=== PATIENT | female | born 1965 | race Caucasian/White ===

== ENCOUNTER → 2016-06-15 | Outpatient (REF) | payer BC ==
[2016-06-15 16:08] LABS: BASO % 0.4 % (0.0-1.0); EOS # 0.1 K/mm3 (0.0-0.50); EOS % 1.4 % (0.0-3.0); LARGE UNSTAINED CELL # 0.2 K/mm3 (0.0-0.4); LARGE UNSTAINED CELL % 2.5 % (0.0-4.0); LYMPH # 1.9 K/mm3 (1.5-4.5); LYMPH % 20.4 % (24.0-44.0); MEAN CORPUSCULAR HEMOGLOBIN 28.3 pg (27.0-33.0); MEAN CORPUSCULAR HGB CONC 32.6 g/dl (32.0-36.5); MEAN CORPUSCULAR VOLUME 86.9 fl (80.0-96.0); MONO # 0.9 K/mm3 (0.0-0.8); MONO % 9.4 % (0.0-5.0); PLATELET COUNT, AUTOMATED 246 k/mm3 (150-450); RED CELL DISTRIBUTION WIDTH 14.1 % (11.5-14.5); WHITE BLOOD COUNT 9.1 K/mm3 (4.0-10.0)
[2016-06-15 16:11] LABS: BLOOD UREA NITROGEN 16 MG/DL (7-18); CREATININE FOR GFR 1.02 MG/DL (0.55-1.02); GLUCOSE, FASTING 104 MG/DL (70-105)
[2016-06-15 16:12] LABS: ALBUMIN 3.7 GM/DL (3.2-5.2); ALBUMIN/GLOBULIN RATIO 1.06 (1.00-1.93); ALKALINE PHOSPHATASE 98 U/L (45-117); ALT/SGPT 29 U/L (12-78); ANION GAP 9 MEQ/L (8-16); AST/SGOT 15 U/L (15-37); BILIRUBIN,TOTAL 0.4 MG/DL (0.2-1.0); CALCIUM LEVEL 8.6 MG/DL (8.5-10.1); CARBON DIOXIDE LEVEL 28 MEQ/L (21-32); CHLORIDE LEVEL 103 MEQ/L (98-107); CHOLESTEROL LEVEL 141 MG/DL (<200); GLOMERULAR FILTRATION RATE > 60.0 (>58); POTASSIUM SERUM 3.9 MEQ/L (3.5-5.1); SODIUM LEVEL 140 MEQ/L (136-145); TOTAL PROTEIN 7.2 GM/DL (6.4-8.2); TRIGLYCERIDES LEVEL 92 MG/DL (<150)
== END ==
LOC: M SFHCPLAZ 13:12
PROVIDERS: ATTEND Family Medicine
DX: I10 Essential (primary) hypertension (principal); E78.5 Hyperlipidemia, unspecified; R73.01 Impaired fasting glucose

== ENCOUNTER 2016-08-08 18:05 | Emergency (ER) | payer BC ==
[~2016-08-08] VITALS: Ht 157.5 cm; Wt 166.0 kg
[2016-08-08] MEDS ORDERED: SPIR50TA2 PO (18:30)
[2016-08-08] MEDS ORDERED: VITA50003 PO (18:30)
[2016-08-08] MEDS ORDERED: ATEN50TA2 PO (18:30)
[2016-08-08] MEDS ORDERED: ASPIRIN 81 MG CHEW TABLET PO ONE (19:15)
[2016-08-08] MEDS ORDERED: methylPREDNISolone INJ 125 MG/2 ML VIAL (J2930) IV ONE (19:15)
[2016-08-08 19:28] LABS: BASO % 0.3 % (0.0-1.0); EOS # 0.1 K/mm3 (0.0-0.50); EOS % 0.6 % (0.0-3.0); LARGE UNSTAINED CELL # 0.2 K/mm3 (0.0-0.4); LYMPH # 3.5 K/mm3 (1.5-4.5); LYMPH % 20.4 % (24.0-44.0); MEAN CORPUSCULAR HGB CONC 30.8 g/dl (32.0-36.5); MEAN CORPUSCULAR VOLUME 90.9 fl (80.0-96.0); MONO # 0.7 K/mm3 (0.0-0.8); MONO % 3.9 % (0.0-5.0); NEUTROPHILS # 12.2 K/mm3 (1.8-7.7); NEUTROPHILS % 73.8 % (36.0-66.0); PLATELET COUNT, AUTOMATED 349 k/mm3 (150-450); RED CELL DISTRIBUTION WIDTH 14.7 % (11.5-14.5); WHITE BLOOD COUNT 16.5 K/mm3 (4.0-10.0)
[2016-08-08 19:34] LABS: INR 1.04
[2016-08-08] MEDS: IPRATROPIUM 0.5MG/ALBUTEROL 2.5MG INH SOL UD 3ML (DUONEB)(J7620) NEB PRN ×2 (19:34→20:13)
[2016-08-08 19:36] LABS: ALBUMIN 3.7 GM/DL (3.2-5.2); BILIRUBIN,DIRECT 0.3 MG/DL (0.0-0.2); BILIRUBIN,TOTAL 0.7 MG/DL (0.2-1.0); CALCIUM LEVEL 8.6 MG/DL (8.5-10.1); CREATININE FOR GFR 1.43 MG/DL (0.55-1.02); GLOMERULAR FILTRATION RATE 41.5 (>58); TOTAL PROTEIN 7.4 GM/DL (6.4-8.2)
--- NOTE | 2016-08-08 19:54 | REP ---
Chest one-view HISTORY: Cough Comparison: None The lungs are clear. The heart is normal in size. The pulmonary vasculature is normal in appearance. Impression: No acute disease. Signed by Rc Schneider MD 08/08/2016 07:46 P
[2016-08-08] MEDS ORDERED: HEPARIN SOD (PORCINE) 5000 UNITS/ML VIAL IV STA (20:43)
[2016-08-08] MEDS ORDERED: HEPARIN SOD (PORCINE) 5000 UNITS/ML VIAL IV SCH (20:45)
[2016-08-08] MEDS ORDERED: LORazepam 2 MG/ML VIAL (J2060) IV STA (20:52)
[2016-08-08] MEDS ORDERED: HEPARIN 25,000 UNITS/250 ML D5W BAG (100 UNITS/ML) As Ordered ONE (20:58)
[2016-08-08] MEDS ORDERED: HEPARIN DRIP 25,000 UNITS in APPROPRIATE DILUENT 1 EA IV STA (21:05)
[2016-08-08] MEDS ORDERED: HEPARIN SOD (PORCINE) 5000 UNITS/ML VIAL IV PRN (21:15)
[2016-08-08 21:40] LABS: MEAN CORPUSCULAR HEMOGLOBIN 27.8 pg (27.0-33.0); MEAN CORPUSCULAR HGB CONC 31.9 g/dl (32.0-36.5); MEAN CORPUSCULAR VOLUME 87.2 fl (80.0-96.0); RED CELL DISTRIBUTION WIDTH 14.5 % (11.5-14.5); WHITE BLOOD COUNT 14.2 K/mm3 (4.0-10.0)
[2016-08-08 21:48] LABS: INR 1.15
[2016-08-08 22:44] VITALS: BP 141/99
--- NOTE | 2016-08-09 20:22 | ECGEPIP ---
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
== END 2016-08-08 23:02 | disposition short-term general hospital (02) ==
LOC: M ED 19:18
DX: I21.4 Non-ST elevation (NSTEMI) myocardial infarction (principal); R00.0 Tachycardia, unspecified; I10 Essential (primary) hypertension; J45.909 Unspecified asthma, uncomplicated; Z91.011 Allergy to milk products; Z79.899 Other long term (current) drug therapy
CPT/HCPCS: 71010; 80048; 80076; 82550; 82553; 85025; 85027; 85379; 85610; 85730; 87040; 93005; 93041; 94640; 94760; 96374; 96375; 99285; J2060; J2930

== ENCOUNTER → 2016-10-08 | Outpatient (REF) | payer BC ==
[~2016-10-08] MED LIST: ATEN50TA2 PO; SPIR50TA2 PO; VITA50003 PO
[2016-10-08 12:11] LABS: BASO % 0.6 % (0.0-1.0); EOS # 0.2 K/mm3 (0.0-0.50); EOS % 2.6 % (0.0-3.0); LARGE UNSTAINED CELL # 0.2 K/mm3 (0.0-0.4); LARGE UNSTAINED CELL % 2.2 % (0.0-4.0); LYMPH # 2.7 K/mm3 (1.5-4.5); LYMPH % 31.2 % (24.0-44.0); MEAN CORPUSCULAR HEMOGLOBIN 27.1 pg (27.0-33.0); MEAN CORPUSCULAR HGB CONC 31.2 g/dl (32.0-36.5); MEAN CORPUSCULAR VOLUME 86.9 fl (80.0-96.0); MONO # 0.5 K/mm3 (0.0-0.8); MONO % 6.7 % (0.0-5.0); NEUTROPHILS # 4.6 K/mm3 (1.8-7.7); NEUTROPHILS % 56.8 % (36.0-66.0); PLATELET COUNT, AUTOMATED 268 k/mm3 (150-450); RED CELL DISTRIBUTION WIDTH 14.8 % (11.5-14.5); WHITE BLOOD COUNT 8.1 K/mm3 (4.0-10.0)
[2016-10-08 12:21] LABS: INR 2.67
[2016-10-08 12:33] LABS: VITAMIN B12 LEVEL 364 PG/ML (247-911)
[2016-10-08 12:39] LABS: ALBUMIN 3.2 GM/DL (3.2-5.2); ALBUMIN/GLOBULIN RATIO 0.94 (1.00-1.93); ALKALINE PHOSPHATASE 89 U/L (45-117); ALT/SGPT 25 U/L (12-78); ANION GAP 6 MEQ/L (8-16); AST/SGOT 14 U/L (15-37); BILIRUBIN,TOTAL 0.3 MG/DL (0.2-1.0); BLOOD UREA NITROGEN 20 MG/DL (7-18); CALCIUM LEVEL 8.5 MG/DL (8.5-10.1); CARBON DIOXIDE LEVEL 28 MEQ/L (21-32); CHLORIDE LEVEL 108 MEQ/L (98-107); CREATININE FOR GFR 0.92 MG/DL (0.55-1.02); FERRITIN 69 NG/ML (8-252); FREE T4 1.24 NG/DL (0.76-1.46); GLOMERULAR FILTRATION RATE > 60.0 (>58); GLUCOSE, FASTING 102 MG/DL (70-105); PERCENT SATURATION 15.8 % (13.2-37.4); POTASSIUM SERUM 4.4 MEQ/L (3.5-5.1); SODIUM LEVEL 142 MEQ/L (136-145); TOTAL IRON BINDING CAPACITY 278 UG/DL (250-450); TOTAL PROTEIN 6.6 GM/DL (6.4-8.2)
[2016-10-11 00:06] LABS: PROTEIN C ANTIGEN 50 % (60-150)
== END ==
LOC: M SFHCPLAZ 10:03
PROVIDERS: ATTEND Family Medicine
DX: N18.3 Chronic kidney disease, stage 3 (moderate) (principal); I12.9 Hypertensive chronic kidney disease with stage 1 through stage 4 chronic kidney disease, or unspecified chronic kidney disease; I26.92 Saddle embolus of pulmonary artery without acute cor pulmonale; R73.01 Impaired fasting glucose

== ENCOUNTER → 2017-01-25 | Outpatient (REF) | payer BC ==
[~2017-01-25] MED LIST changes: +VITA1CAP40 PO; -VITA50003 PO
[2017-01-25 12:13] LABS: INR 2.21
[2017-01-25 12:16] LABS: BASO % 0.7 % (0.0-1.0); EOS # 0.2 K/mm3 (0.0-0.50); EOS % 3.3 % (0.0-3.0); LARGE UNSTAINED CELL # 0.1 K/mm3 (0.0-0.4); LARGE UNSTAINED CELL % 1.3 % (0.0-4.0); LYMPH # 2.3 K/mm3 (1.5-4.5); LYMPH % 29.4 % (24.0-44.0); MEAN CORPUSCULAR HEMOGLOBIN 28.2 pg (27.0-33.0); MEAN CORPUSCULAR HGB CONC 32.3 g/dl (32.0-36.5); MEAN CORPUSCULAR VOLUME 87.2 fl (80.0-96.0); MONO # 0.5 K/mm3 (0.0-0.8); MONO % 6.5 % (0.0-5.0); NEUTROPHILS # 4.5 K/mm3 (1.8-7.7); NEUTROPHILS % 58.7 % (36.0-66.0); PLATELET COUNT, AUTOMATED 285 k/mm3 (150-450); RED CELL DISTRIBUTION WIDTH 14.7 % (11.5-14.5); WHITE BLOOD COUNT 7.6 K/mm3 (4.0-10.0)
[2017-01-25 12:19] LABS: THYROID PEROXIDASE ANTIBODY < 28.0 U/ML (<60.0)
[2017-01-25 12:20] LABS: VITAMIN B12 LEVEL 445 PG/ML (247-911)
[2017-01-25 12:35] LABS: ALBUMIN 3.4 GM/DL (3.2-5.2); ALBUMIN/GLOBULIN RATIO 0.94 (1.00-1.93); ALKALINE PHOSPHATASE 107 U/L (45-117); ALT/SGPT 25 U/L (12-78); ANION GAP 9 MEQ/L (8-16); AST/SGOT 11 U/L (15-37); BILIRUBIN,TOTAL 0.3 MG/DL (0.2-1.0); BLOOD UREA NITROGEN 22 MG/DL (7-18); CALCIUM LEVEL 8.7 MG/DL (8.5-10.1); CARBON DIOXIDE LEVEL 27 MEQ/L (21-32); CHLORIDE LEVEL 107 MEQ/L (98-107); CREATININE FOR GFR 0.95 MG/DL (0.55-1.02); FERRITIN 31 NG/ML (8-252); FREE T4 1.24 NG/DL (0.76-1.46); GLOMERULAR FILTRATION RATE > 60.0 (>58); GLUCOSE, FASTING 100 MG/DL (70-105); MAGNESIUM LEVEL 2.3 MG/DL (1.8-2.4); PERCENT SATURATION 17.2 % (13.2-45.0); POTASSIUM SERUM 4.3 MEQ/L (3.5-5.1); SODIUM LEVEL 143 MEQ/L (136-145); TOTAL IRON BINDING CAPACITY 309 UG/DL (250-450)
== END ==
LOC: M SFHCPLAZ 08:34
PROVIDERS: ATTEND Family Medicine
DX: D50.9 Iron deficiency anemia, unspecified (principal); N18.3 Chronic kidney disease, stage 3 (moderate); E78.5 Hyperlipidemia, unspecified; R73.01 Impaired fasting glucose

== ENCOUNTER → 2017-08-30 | Outpatient (REF) | payer BC ==
[2017-08-30 10:43] LABS: BASO # 0.1 10^3/uL (0.0-0.2); BASO % 0.5 % (0.0-1.0); EOS # 0.2 10^3/uL (0.0-0.50); EOS % 2.5 % (0.0-3.0); HEMOGLOBIN 13.8 g/dl (12.0-15.5); IMMATURE GRANULOCYTE % 0.4 % (0-3.0); LYMPH # 2.8 10^3/uL (1.5-4.5); MEAN CORPUSCULAR HEMOGLOBIN 28.5 pg (27.0-33.0); MEAN CORPUSCULAR HGB CONC 31.4 g/dl (32.0-36.5); MEAN CORPUSCULAR VOLUME 90.9 fl (80.0-96.0); MONO # 0.8 10^3/uL (0.0-0.8); NEUTROPHILS # 5.2 10^3/uL (1.8-7.7); NEUTROPHILS % 56.6 % (36.0-66.0); PLATELET COUNT, AUTOMATED 291 10^3/uL (150-450); RED BLOOD COUNT 4.84 10^6/uL (4.00-5.40); RED CELL DISTRIBUTION WIDTH 14.6 % (11.5-14.5); WHITE BLOOD COUNT 9.2 10^3/uL (4.0-10.0)
[2017-08-30 11:00] LABS: ESTIMATED AVERAGE GLUCOSE 140 MG/DL (60-110); HEMOGLOBIN A1c 6.5 %
[2017-08-30 11:30] LABS: ALBUMIN 3.7 GM/DL (3.2-5.2); ALBUMIN/GLOBULIN RATIO 1.06 (1.00-1.93); ALKALINE PHOSPHATASE 102 U/L (45-117); ALT/SGPT 22 U/L (12-78); ANION GAP 6 MEQ/L (8-16); AST/SGOT 11 U/L (7-37); BILIRUBIN,TOTAL 0.5 MG/DL (0.2-1.0); BLOOD UREA NITROGEN 18 MG/DL (7-18); CALCIUM LEVEL 8.6 MG/DL (8.5-10.1); CARBON DIOXIDE LEVEL 30 MEQ/L (21-32); CHLORIDE LEVEL 106 MEQ/L (98-107); CREATININE FOR GFR 1.11 MG/DL (0.55-1.30); FERRITIN 44 NG/ML (8-252); FREE T4 1.36 NG/DL (0.76-1.46); GLOMERULAR FILTRATION RATE 55.4 (>51); GLUCOSE, FASTING 118 MG/DL (70-100); IRON (FE) 57 UG/DL (50-170); POTASSIUM SERUM 4.5 MEQ/L (3.5-5.1); SODIUM LEVEL 142 MEQ/L (136-145); TOTAL IRON BINDING CAPACITY 300 UG/DL (250-450); TOTAL PROTEIN 7.2 GM/DL (6.4-8.2)
[2017-08-30 11:45] LABS: TOTAL 25(OH) VITAMIN D 40.2 NG/ML (30.0-100.0)
[2017-08-30 11:48] LABS: PTH INTACT 109.9 PG/ML (18.5-88.0)
[2017-08-31 14:19] LABS: INSULIN LEVEL 25.1 uIU/mL (2.6-24.9)
== END ==
LOC: M SFHCPLAZ 07:38
DX: N18.3 Chronic kidney disease, stage 3 (moderate) (principal); E55.9 Vitamin D deficiency, unspecified; E28.8 Other ovarian dysfunction
CPT/HCPCS: 83525

== ENCOUNTER → 2017-12-27 | Outpatient (REF) | payer BC ==
[2017-12-27 12:41] LABS: BASO % 0.4 % (0.0-1.0); EOS # 0.2 10^3/uL (0.0-0.50); EOS % 2.6 % (0.0-3.0); HEMATOCRIT 44.6 % (36.0-47.0); HEMOGLOBIN 13.9 g/dl (12.0-15.5); IMMATURE GRANULOCYTE % 0.7 % (0-3.0); LYMPH # 2.5 10^3/uL (1.5-4.5); LYMPH % 30.4 % (24.0-44.0); MEAN CORPUSCULAR HEMOGLOBIN 27.9 pg (27.0-33.0); MEAN CORPUSCULAR HGB CONC 31.2 g/dl (32.0-36.5); MEAN CORPUSCULAR VOLUME 89.4 fl (80.0-96.0); MONO # 0.7 10^3/uL (0.0-0.8); MONO % 8.3 % (0.0-5.0); NEUTROPHILS # 4.7 10^3/uL (1.8-7.7); NEUTROPHILS % 57.6 % (36.0-66.0); PLATELET COUNT, AUTOMATED 309 10^3/uL (150-450); RED BLOOD COUNT 4.99 10^6/uL (4.00-5.40); RED CELL DISTRIBUTION WIDTH 14.9 % (11.5-14.5); RETIC HEMOGLOBIN EQUIVALENT 30.9 pg (24-36); RETICULOCYTE # 81.8 10^9/L (17-77); RETICULOCYTE % 1.6 % (0.5-1.5); WHITE BLOOD COUNT 8.2 10^3/uL (4.0-10.0)
[2017-12-27 12:54] LABS: C REACTIVE PROTEIN QUANTITATIV 1.13 MG/DL (0.00-0.30); CHOLESTEROL LEVEL 181 MG/DL (<200); CHOLESTEROL RISK RATIO 3.851 (<5); CPK CREATINE PHOSPHOKINASE 46 U/L (26-192); FREE T4 1.33 NG/DL (0.76-1.46); HDL CHOLESTEROL 47 MG/DL (>40); LDL CHOLESTEROL 102.2 MG/DL (<100); NON-HDL-C 134 MG/DL; TRIGLYCERIDES LEVEL 159 MG/DL (<150)
[2017-12-27 13:17] LABS: ESTIMATED AVERAGE GLUCOSE 146 MG/DL (60-110); HEMOGLOBIN A1c 6.7 %
== END ==
LOC: M SFHCPLAZ 08:51
DX: D50.9 Iron deficiency anemia, unspecified (principal); E78.5 Hyperlipidemia, unspecified; Z51.81 Encounter for therapeutic drug level monitoring; E03.9 Hypothyroidism, unspecified; E11.9 Type 2 diabetes mellitus without complications
CPT/HCPCS: 82550

== ENCOUNTER → 2018-05-16 | Outpatient (REF) | payer BC ==
[2018-05-16 12:11] LABS: BASO # 0.1 10^3/uL (0.0-0.2); BASO % 0.7 % (0.0-1.0); EOS # 0.2 10^3/uL (0.0-0.50); EOS % 2.7 % (0.0-3.0); HEMOGLOBIN 13.6 g/dl (12.0-15.5); IMMATURE GRANULOCYTE % 0.5 % (0-3.0); LYMPH # 2.6 10^3/uL (1.5-4.5); MEAN CORPUSCULAR HEMOGLOBIN 27.7 pg (27.0-33.0); MEAN CORPUSCULAR HGB CONC 30.9 g/dl (32.0-36.5); MEAN CORPUSCULAR VOLUME 89.6 fl (80.0-96.0); MONO # 0.9 10^3/uL (0.0-0.8); MONO % 10.6 % (0.0-5.0); NEUTROPHILS # 4.4 10^3/uL (1.8-7.7); NEUTROPHILS % 53.5 % (36.0-66.0); PLATELET COUNT, AUTOMATED 302 10^3/uL (150-450); RED BLOOD COUNT 4.91 10^6/uL (4.00-5.40); RED CELL DISTRIBUTION WIDTH 15.4 % (11.5-14.5); RETIC HEMOGLOBIN EQUIVALENT 30.4 pg (24-36); RETICULOCYTE # 93.3 10^9/L (17-77); RETICULOCYTE % 1.9 % (0.5-1.5); WHITE BLOOD COUNT 8.2 10^3/uL (4.0-10.0)
[2018-05-16 12:16] LABS: AMORPHOUS SEDIMENT SMALL (NEGATIVE); APPEARANCE, URINE TURBID (CLEAR); BACTERIA, URINE AUTO 3+ (NEGATIVE); BILIRUBIN, URINE AUTO NEGATIVE (NEGATIVE); BLOOD, URINE BLOOD 2+ (NEGATIVE); COLOR, URINE AMBER (YELLOW); GLUCOSE, URINE (UA) AUTO NEGATIVE (NEGATIVE); KETONE, URINE AUTO NEGATIVE (NEGATIVE); LEUKOCYTE ESTERASE, URINE AUTO 1+ (NEGATIVE); MUCUS, URINE SMALL (NEGATIVE); NITRITE, URINE AUTO NEGATIVE (NEGATIVE); PROTEIN, URINE AUTO NEGATIVE (NEGATIVE); RBC, URINE AUTO 28 /HPF (0-3); SPECIFIC GRAVITY URINE AUTO 1.019 (1.002-1.035); SQUAMOUS EPITHELIAL CELL UR AU 7 /HPF (0-6); UROBILINOGEN, URINE AUTO 0.2 mg/dL (0.0-2.0); WBC, URINE AUTO 68 /HPF (0-3)
[2018-05-16 12:55] LABS: ALBUMIN 3.6 GM/DL (3.2-5.2); ALBUMIN/GLOBULIN RATIO 1.03 (1.00-1.93); ALKALINE PHOSPHATASE 101 U/L (45-117); ALT/SGPT 25 U/L (12-78); ANION GAP 8 MEQ/L (8-16); AST/SGOT 14 U/L (7-37); BILIRUBIN,TOTAL 0.4 MG/DL (0.2-1.0); BLOOD UREA NITROGEN 15 MG/DL (7-18); CALCIUM LEVEL 8.8 MG/DL (8.5-10.1); CARBON DIOXIDE LEVEL 28 MEQ/L (21-32); CHLORIDE LEVEL 106 MEQ/L (98-107); CREATININE FOR GFR 0.91 MG/DL (0.55-1.30); GLOMERULAR FILTRATION RATE > 60.0 (>51); GLUCOSE, FASTING 92 MG/DL (70-100); MAGNESIUM LEVEL 2.4 MG/DL (1.8-2.4); POTASSIUM SERUM 4.3 MEQ/L (3.5-5.1); PTH INTACT 117.4 PG/ML (18.5-88.0); SODIUM LEVEL 142 MEQ/L (136-145); TOTAL 25(OH) VITAMIN D 40.4 NG/ML (30.0-100.0); TOTAL PROTEIN 7.1 GM/DL (6.4-8.2)
[2018-05-16 15:08] LABS: ESTIMATED AVERAGE GLUCOSE 140 MG/DL (60-110); HEMOGLOBIN A1c 6.5 %
[2018-05-16 15:22] LABS: MALB URINE SIEMENS < 5.0 MG/L; MAU/CREAT RATIO 3.4 MCG/MG (0.0-30.0)
== END ==
LOC: M SFHCPLAZ 09:06
DX: D50.9 Iron deficiency anemia, unspecified (principal); I10 Essential (primary) hypertension; E11.9 Type 2 diabetes mellitus without complications; E55.9 Vitamin D deficiency, unspecified
CPT/HCPCS: 83735

== ENCOUNTER → 2018-06-27 | Outpatient (CLI) | payer BC ==
[~2018-06-27] MED LIST changes: +ISOVUE-370 76% 100ML VIAL (Q9967) As Ordered ONE; -SPIR50TA2 PO; +SPIR50TA4 PO; -VITA1CAP40 PO; +VITA50005 PO
--- NOTE | 2018-06-27 15:05 | REP ---
CT PULMONARY ANGIOGRAM: With IV contrast. HISTORY: Shortness of breath. COMPARISON STUDIES: No comparison study. Contrast dose: 75 mL of Isovue [address] TECHNIQUE: Helical scanning is acquired and overlapping 1.5 mm and contiguous 3 mm axial images are reformatted. In addition, maximum intensity projection and multiplanar re-formation images are generated in sagittal and coronal imaging projections. CT PULMONARY ANGIOGRAPHIC FINDINGS: There is good opacification in the pulmonary arterial tree. There is no CT evidence of pulmonary embolism. The thoracic aorta shows no evidence of aneurysm or dissection. No infiltrate is seen in the lung jain. No pulmonary nodule or mass lesion is observed. No pleural or pericardial effusion is appreciated. No hilar or mediastinal mass or adenopathy is observed. There is evidence of fatty infiltration in the liver. Spleen is at the upper range of normal in size. There is a small stable left adrenal adenoma, 1.6 cm in diameter. This is unchanged from December 02, 2015 prior study. IMPRESSION: No CT evidence of pulmonary embolus. Borderline size spleen and small benign left adrenal adenoma unchanged from the 2016 prior study. Mild fatty infiltration of the liver. Otherwise negative. Electronically Signed by Sam Gaona MD 06/27/2018 04:43 P
== END ==
LOC: M RAD 13:34
PROVIDERS: ATTEND Physician Assistant Medical
DX: R06.02 Shortness of breath (principal); K76.0 Fatty (change of) liver, not elsewhere classified; D35.02 Benign neoplasm of left adrenal gland
CPT/HCPCS: 71275; Q9967

== ENCOUNTER → 2018-06-27 | Outpatient (REF) | payer BC ==
[~2018-06-27] MED LIST changes: -ISOVUE-370 76% 100ML VIAL (Q9967) As Ordered ONE
[2018-06-27 13:44] LABS: BILIRUBIN,TOTAL 0.5 MG/DL (0.2-1.0); CALCIUM LEVEL 9.4 MG/DL (8.5-10.1); CREATININE FOR GFR 1.09 MG/DL (0.55-1.30); GLOMERULAR FILTRATION RATE 56.3 (>51); POTASSIUM SERUM 4.7 MEQ/L (3.5-5.1); TOTAL PROTEIN 7.8 GM/DL (6.4-8.2)
== END ==
LOC: M SFHCPLAZ 12:25
PROVIDERS: ATTEND Physician Assistant Medical
DX: N18.3 Chronic kidney disease, stage 3 (moderate) (principal)

== ENCOUNTER → 2019-03-13 | Outpatient (REF) | payer BC ==
[2019-03-13 12:09] LABS: INR 3.33; PROTHROMBIN TIME 33.8 SECONDS (11.8-14.0)
[2019-03-13 12:10] LABS: PARTIAL THROMBOPLASTIN TIME 46.9 SECONDS (25.0-38.4)
== END ==
LOC: M SFHCPLAZ 10:09
PROVIDERS: ATTEND Nurse Practitioner Family
DX: Z51.81 Encounter for therapeutic drug level monitoring (principal)

== ENCOUNTER → 2019-04-10 | Outpatient (REF) | payer BC ==
[2019-04-10 12:44] LABS: BASO % 0.4 % (0.0-1.0); EOS # 0.2 10^3/uL (0.0-0.5); EOS % 1.8 % (0.0-3.0); HEMATOCRIT 44.7 % (36.0-47.0); HEMOGLOBIN 13.5 g/dl (12.0-15.5); LYMPH # 2.4 10^3/uL (1.5-5.0); MEAN CORPUSCULAR HEMOGLOBIN 28.5 pg (27.0-33.0); MEAN CORPUSCULAR HGB CONC 30.2 g/dl (32.0-36.5); MEAN CORPUSCULAR VOLUME 94.3 fl (80.0-96.0); MONO # 0.9 10^3/uL (0.0-0.8); MONO % 9.7 % (0.0-5.0); NEUTROPHILS # 5.5 10^3/uL (1.5-8.5); NEUTROPHILS % 60.7 % (36.0-66.0); PLATELET COUNT, AUTOMATED 271 10^3/uL (150-450); RED BLOOD COUNT 4.74 10^6/uL (4.00-5.40)
[2019-04-10 12:56] LABS: INR 2.31; PARTIAL THROMBOPLASTIN TIME 36.6 SECONDS (25.0-38.4); PROTHROMBIN TIME 25.2 SECONDS (11.8-14.0)
[2019-04-10 13:01] LABS: ALBUMIN 3.4 GM/DL (3.2-5.2); ALT/SGPT 21 U/L (12-78); BILIRUBIN,TOTAL 0.4 MG/DL (0.2-1.0); BLOOD UREA NITROGEN 20 MG/DL (7-18); CALCIUM LEVEL 8.9 MG/DL (8.5-10.1); CARBON DIOXIDE LEVEL 27 MEQ/L (21-32); CHLORIDE LEVEL 108 MEQ/L (98-107); CHOLESTEROL LEVEL 183 MG/DL (<200); CREATININE FOR GFR 0.93 MG/DL (0.55-1.30); FREE T4 1.11 NG/DL (0.76-1.46); GLOMERULAR FILTRATION RATE > 60.0 (>51); GLUCOSE, FASTING 110 MG/DL (70-100); HDL CHOLESTEROL 50 MG/DL (>40); LDL CHOLESTEROL 100 MG/DL (<100); MAGNESIUM LEVEL 2.1 MG/DL (1.8-2.4); NON-HDL-C 133 MG/DL; NT-PRO BNP 196 PG/ML (<125); SODIUM LEVEL 143 MEQ/L (136-145); TOTAL PROTEIN 6.9 GM/DL (6.4-8.2); TRIGLYCERIDES LEVEL 164 MG/DL (<150)
[2019-04-10 14:13] LABS: HEMOGLOBIN A1c 6.1 %
== END ==
LOC: M SFHCPLAZ 08:34
PROVIDERS: ATTEND Family Medicine
DX: I10 Essential (primary) hypertension (principal); D50.9 Iron deficiency anemia, unspecified; Z51.81 Encounter for therapeutic drug level monitoring; N18.3 Chronic kidney disease, stage 3 (moderate); E03.9 Hypothyroidism, unspecified; E11.9 Type 2 diabetes mellitus without complications

== ENCOUNTER → 2019-08-17 | Outpatient (CLI) | payer OTHER ==
--- NOTE | 2019-08-17 20:12 | REPPI ---
Clinical: Pain. Work injury. Technique: Internal rotation, external rotation, and Y view of the left shoulder. Findings: There is subtle chronic ovoid blunting of the humeral head with subchondral heterogeneity along with irregular appearance to the glenoid and supporting portion of the scapula. Spurring involving the acromioclavicular joint is also appreciated. Clinical correlation is recommended as these findings appear nonacute. Impression: 1. Presumed chronic changes involving the left shoulder as described above. 2. Subtle acute injury cannot be excluded and requires correlation. If the patient remains symptomatic consider CT or MRI for further investigation. Electronically Signed by Humza Garcia MD 08/17/2019 08:03 P
--- NOTE | 2019-08-17 20:14 | REPPI ---
Clinical: Left wrist pain. Work injury. Technique: AP, lateral, bilateral oblique views of the left wrist. Findings: No acute fracture or dislocation. Carpal bones appear intact and no significant degenerative changes are noted. There is subtle scalloping and joint space narrowing involving the articular surface of the radius with subchondral sclerosis as well as subtle cortical irregularity and spurring involving the ulnar styloid. Findings likely represent chronic changes possibly related to work/repetitive micro trauma. Impression: Suspected chronic changes involving the distal intra-articular aspects of the distal radius and ulna. No definite acute fracture dislocation. Electronically Signed by Humza Garcia MD 08/17/2019 08:05 P
== END ==
LOC: M PLAIMG 15:09
PROVIDERS: ATTEND Physician Assistant
DX: M25.532 Pain in left wrist (principal); M25.512 Pain in left shoulder

== ENCOUNTER → 2019-08-20 | Outpatient (CLI) | payer BC ==
--- NOTE | 2019-08-25 15:51 | SLEEPHOME ---
DATE OF PROCEDURE: 08/20/2019 ORDERED BY: Dr. Rivas Diagnostic home sleep testing was performed due to concern for the obstructive sleep apnea syndrome. For testing a nocturnal T3 respiratory monitoring device was used. Continuous record was made of pulse, oxygen saturation, airflow, chest and abdominal strain, and body position. 9 hours and 59 minutes of data were reviewed. There were 7 hours and 59 minutes marked as time in bed. During the interval marked time in bed, there were 79 respiratory events identified of 10 seconds in duration or greater for a respiratory event index of 9.9. The events were primarily obstructive; 5 mixed and central apneas were seen. Baseline pulse rate 59 beats per minute; pulse rate ranged 40-91. Baseline saturation 93%; saturations fell to 76%. Testing was performed in both the supine and nonsupine positions. IMPRESSION: Abnormal home sleep testing with repetitive respiratory events and oxygen desaturations to 76% with a respiratory event index of 9.9 is consistent with the obstructive sleep apnea syndrome. RECOMMENDATIONS: The patient should be encouraged to undergo formal sleep evaluation.
== END ==
LOC: M SLEEP HO 09:18
PROVIDERS: ATTEND Family Medicine
DX: G47.33 Obstructive sleep apnea (adult) (pediatric) (principal)

== ENCOUNTER → 2019-09-29 | Outpatient (CLI) | payer BC ==
--- NOTE | 2019-10-02 00:24 | SLEEPCENT ---
DATE OF PROCEDURE: 09/29/2019 ORDERED BY: Ganesh Dumont PA-C Nocturnal polysomnography was performed for the titration of pressure therapy in this patient with a clinical diagnosis of obstructive sleep apnea syndrome confirmed by home testing revealing a respiratory event index of 9.9. For testing a [employer] L[employer] View full face mask of medium size was used, 4 cm of water pressure were applied to the circuit and the lights were extinguished. 7 hours and 28 minutes of data were reviewed. There were 167 minutes of sleep identified. Sleep latency was quite prolonged at 106 minutes. Rapid eye movement (REM) latency was prolonged at 111 minutes. Sleep architecture was fair. There were two REM cycles noted with prolonged periods of wake that occurred resulting in reduced sleep efficiency of only 37.7%. The patient's electrocardiogram showed a sinus rhythm with an average heart rate of 72 beats per minute. EEG showed reasonably normal waveforms for awake and sleep. Respiratory events were fairly well palliated with continuous positive airway pressure (CPAP) at a pressure of +7. Remaining measures of sleep physiology were normal. IMPRESSION: Obstructive sleep apnea syndrome (G47.33). RECOMMENDATIONS: Nightly use of pressure therapy 7 cm of water.
== END ==
LOC: M SLEEP 20:00
PROVIDERS: ATTEND Physician Assistant
DX: G47.33 Obstructive sleep apnea (adult) (pediatric) (principal)

== ENCOUNTER → 2019-10-02 | Outpatient (REF) | payer BC ==
[2019-10-02 11:32] LABS: BASO # 0.1 10^3/uL (0.0-0.2); BASO % 0.7 % (0.0-1.0); EOS # 0.1 10^3/uL (0.0-0.5); EOS % 1.9 % (0.0-3.0); HEMATOCRIT 44.5 % (36.0-47.0); HEMOGLOBIN 13.8 g/dl (12.0-15.5); LYMPH # 2.7 10^3/uL (1.5-5.0); LYMPH % 36.2 % (24.0-44.0); MEAN CORPUSCULAR HEMOGLOBIN 28.6 pg (27.0-33.0); MEAN CORPUSCULAR VOLUME 92.1 fl (80.0-96.0); MONO # 0.6 10^3/uL (0.0-0.8); MONO % 8.1 % (0.0-5.0); NEUTROPHILS # 3.9 10^3/uL (1.5-8.5); NEUTROPHILS % 52.6 % (36.0-66.0); PLATELET COUNT, AUTOMATED 306 10^3/uL (150-450); RED BLOOD COUNT 4.83 10^6/uL (4.00-5.40); WHITE BLOOD COUNT 7.4 10^3/uL (4.0-10.0)
[2019-10-02 11:33] LABS: ALBUMIN 3.7 GM/DL (3.2-5.2); ALT/SGPT 28 U/L (12-78); BILIRUBIN,TOTAL 0.6 MG/DL (0.2-1.0); BLOOD UREA NITROGEN 15 MG/DL (7-18); CALCIUM LEVEL 9.2 MG/DL (8.5-10.1); CARBON DIOXIDE LEVEL 28 MEQ/L (21-32); CHLORIDE LEVEL 106 MEQ/L (98-107); CREATININE FOR GFR 1.08 MG/DL (0.55-1.30); GLOMERULAR FILTRATION RATE 56.7 (>51); GLUCOSE, FASTING 97 MG/DL (70-100); POTASSIUM SERUM 4.5 MEQ/L (3.5-5.1); SODIUM LEVEL 142 MEQ/L (136-145); TOTAL PROTEIN 7.4 GM/DL (6.4-8.2)
[2019-10-02 11:38] LABS: INR 2.17
[2019-10-02 11:39] LABS: PARTIAL THROMBOPLASTIN TIME 36.4 SECONDS (25.0-38.4)
[2019-10-02 11:41] LABS: TOTAL 25(OH) VITAMIN D 94.6 NG/ML (30.0-100.0)
[2019-10-02 11:42] LABS: VITAMIN B12 LEVEL 417 PG/ML (247-911)
[2019-10-06 11:11] LABS: ALBUMIN 4.04 GM/DL (3.29-5.55); ALBUMIN % 54.6 % (55.8-66.1); ALPHA-1-GLOBULIN % 4.7 % (2.9-4.9); ALPHA-2-GLOBULINS % 12.1 % (7.1-11.8); BETA-1-GLOBULINS % 6.6 % (4.7-7.2); BETA-2-GLOBULINS % 6.3 % (3.2-6.5); GAMMA GLOBULIN % 15.7 % (11.1-18.8)
[2019-10-06 11:12] LABS: ALPHA-1-GLOBULINS 0.35 GM/DL (0.17-0.41); BETA-1-GLOBULINS 0.49 GM/DL (0.28-0.60); BETA-2-GLOBULINS 0.47 GM/DL (0.19-0.55); GAMMA GLOBULINS 1.16 GM/DL (0.65-1.58)
== END ==
LOC: M PLALAB 09:35
PROVIDERS: ATTEND Family Medicine
DX: I10 Essential (primary) hypertension (principal); E55.9 Vitamin D deficiency, unspecified; Z51.81 Encounter for therapeutic drug level monitoring

== ENCOUNTER → 2020-02-05 | Outpatient (CLI) | payer BC, OTHER ==
[2020-02-05 14:24] LABS: HEMATOCRIT 45.7 % (36.0-47.0); HEMOGLOBIN 14.1 g/dl (12.0-15.5); MEAN CORPUSCULAR HEMOGLOBIN 27.8 pg (27.0-33.0); MEAN CORPUSCULAR HGB CONC 30.9 g/dl (32.0-36.5); MEAN CORPUSCULAR VOLUME 90.1 fl (80.0-96.0); PLATELET COUNT, AUTOMATED 363 10^3/uL (150-450); RED BLOOD COUNT 5.07 10^6/uL (4.00-5.40); WHITE BLOOD COUNT 8.8 10^3/uL (4.0-10.0)
[2020-02-05 14:46] LABS: INR 1.49; PROTHROMBIN TIME 18.4 SECONDS (11.8-14.0)
[2020-02-05 15:02] LABS: FREE T4 1.28 NG/DL (0.76-1.46); THYROID STIMULATING HORMONE 3.49 uIU/ML (0.358-3.740)
[2020-02-05 16:02] LABS: HEMOGLOBIN A1c 6.1 %
== END ==
LOC: M PLALAB 10:37
PROVIDERS: ATTEND Family Medicine
DX: I10 Essential (primary) hypertension (principal); E11.9 Type 2 diabetes mellitus without complications

== ENCOUNTER → 2020-06-22 | Outpatient (CLI) | payer OTHER ==
--- NOTE | 2020-06-22 09:34 | REP ---
INDICATION: LT SHOULDER ASSESS RC TENDONS SHOULDER PAIN STRAIN. COMPARISON: Radiographs 08/17/2019. TECHNIQUE: Coronal oblique T1, T2 fat sat, sagittal oblique T2 fat sat, axial T2 fat sat, gradient echo. The study is extremely limited due to patient body habitus. FINDINGS: Rotator cuff: Mild ill-defined high signal seen on T2 weighted images in the supraspinatus and infraspinatus tendons compatible with tendinopathy/tendinitis. There is focal increased signal in the distal supraspinatus tendon consistent with a partial bursal surface tear. Acromioclavicular joint: There are mild hypertrophic degenerative changes of the acromioclavicular joint. Acromion: The shape of the acromion cannot be evaluated as it is not visualized on sagittal oblique images. Biceps Tendon: In bicipital groove, no tenosynovitis. Hill Sach's deformity: None. Deltoid muscle: No definite abnormal signal. Biceps labral complex: Fraying is suspected of the biceps labral complex. Labrum: I suspect a posterior labral tear. Inferior labrum appears truncated and frayed. Cartilage: No defects. There is moderate chondromalacia of the glenohumeral joint. There is a moderate-sized spur of the medial humeral head. Bone marrow: No abnormal signal. Joint fluid: There is a very small joint effusion. There is a tiny amount of fluid in the subdeltoid bursa. IMPRESSION: Extremely limited exam due to patient body habitus. Supraspinatus and infraspinatus tendinopathy/tendinitis. There appears to be a focal bursal surface partial tear of the distal supraspinatus tendon. Mild hypertrophic degenerative changes acromioclavicular joint. Evaluation of the labrum is limited. I suspect fraying of the biceps labral complex, as well as a posterior labral tear. The inferior labrum appears truncated and frayed. Moderate chondromalacia at the glenohumeral joint. Tiny amount of fluid in the subdeltoid bursa. <Electronically signed by Parth Robles > 06/22/20 [id number]
== END ==
LOC: M RAD 07:24
PROVIDERS: ATTEND Orthopaedic Surgery Sports Medicine
DX: M19.012 Primary osteoarthritis, left shoulder (principal); S46.012D Strain of muscle(s) and tendon(s) of the rotator cuff of left shoulder, subsequent encounter; M94.212 Chondromalacia, left shoulder; M25.412 Effusion, left shoulder; M77.8 Other enthesopathies, not elsewhere classified; X58.XXXD Exposure to other specified factors, subsequent encounter; Y92.9 Unspecified place or not applicable

== ENCOUNTER → 2020-07-08 | Outpatient (REF) | payer BC ==
[2020-07-08 11:34] LABS: BASO # 0.1 10^3/uL (0.0-0.2); BASO % 0.6 % (0.0-1.0); EOS # 0.2 10^3/uL (0.0-0.5); EOS % 2.3 % (0.0-3.0); HEMATOCRIT 43.8 % (36.0-47.0); HEMOGLOBIN 12.9 g/dl (12.0-15.5); LYMPH # 2.5 10^3/uL (1.5-5.0); LYMPH % 31.1 % (24.0-44.0); MEAN CORPUSCULAR HEMOGLOBIN 26.4 pg (27.0-33.0); MEAN CORPUSCULAR HGB CONC 29.5 g/dl (32.0-36.5); MEAN CORPUSCULAR VOLUME 89.8 fl (80.0-96.0); MONO # 0.7 10^3/uL (0.0-0.8); MONO % 9.1 % (0.0-5.0); NEUTROPHILS # 4.5 10^3/uL (1.5-8.5); NEUTROPHILS % 56.5 % (36.0-66.0); PLATELET COUNT, AUTOMATED 305 10^3/uL (150-450); RED BLOOD COUNT 4.88 10^6/uL (4.00-5.40); WHITE BLOOD COUNT 7.9 10^3/uL (4.0-10.0)
[2020-07-08 11:47] LABS: INR 2.06; PROTHROMBIN TIME 23.7 SECONDS (12.5-14.3)
[2020-07-08 11:48] LABS: PARTIAL THROMBOPLASTIN TIME 40.8 SECONDS (24.2-38.5)
[2020-07-08 11:57] LABS: HEMOGLOBIN A1c 6.2 %
[2020-07-08 12:18] LABS: ALBUMIN 3.8 GM/DL (3.2-5.2); ALT/SGPT 24 U/L (12-78); BILIRUBIN,TOTAL 0.4 MG/DL (0.2-1.0); BLOOD UREA NITROGEN 27 MG/DL (7-18); CALCIUM LEVEL 9.7 MG/DL (8.5-10.1); CARBON DIOXIDE LEVEL 29 MEQ/L (21-32); CHLORIDE LEVEL 105 MEQ/L (98-107); CHOLESTEROL LEVEL 175 MG/DL (<200); CHOLESTEROL RISK RATIO 3.125 (<5); CREATININE FOR GFR 0.96 MG/DL (0.55-1.30); GLOMERULAR FILTRATION RATE > 60.0 (>51); GLUCOSE, FASTING 121 MG/DL (70-100); HDL CHOLESTEROL 56 MG/DL (>40); LDL CHOLESTEROL 100 MG/DL (<100); NON-HDL-C 119 MG/DL; POTASSIUM SERUM 4.3 MEQ/L (3.5-5.1); PTH INTACT 77.3 PG/ML (18.5-88.0); SODIUM LEVEL 141 MEQ/L (136-145); TOTAL 25(OH) VITAMIN D 88.1 NG/ML (30.0-100.0); TOTAL PROTEIN 7.6 GM/DL (6.4-8.2); TRIGLYCERIDES LEVEL 97 MG/DL (<150)
== END ==
LOC: M PLALAB 09:20
PROVIDERS: ATTEND Family Medicine
DX: Z86.711 Personal history of pulmonary embolism (principal); E55.9 Vitamin D deficiency, unspecified; E11.9 Type 2 diabetes mellitus without complications

== ENCOUNTER → 2020-10-06 | Outpatient (CLI) | payer BC ==
--- NOTE | 2020-10-06 18:26 | REP ---
INDICATION: ULCER OF RT EXT. COMPARISON: None. TECHNIQUE: Unilateral right lower extremity arterial Doppler ultrasound. FINDINGS: Ankle brachial index could not be accomplished due to a bandage the could not be removed at the ankle. Study is limited due to patient body habitus. Monophasic arterial Doppler waveforms are noted throughout the right lower extremity. High diastolic flow they reflect hyperemia. We were not able to visualize the tibial-peroneal trunk or the proximal anterior tibial artery. The distal anterior and posterior tibial arteries could not be visualized either due to the dressing. No high-grade stenosis or occlusion is directly visualized. Monophasic waveform is observed in the external iliac artery on the right with peak systolic velocity 189 cm/S. Right lower extremity arterial Doppler velocity chart: Right CNA PER DIEM PSV 173 cm/S Profundal 68 Proximal SFA 160 Mid SFA 202 Distal SFA 186 Popliteal 147 Proximal LURDES not seen Tibial-peroneal trunk not seen Proximal CLINICAL EDUCATION MANAGER 45 Distal CLINICAL EDUCATION MANAGER and distal LURDES unable to image. IMPRESSION: Monophasic arterial Doppler waveforms. Technically limited study. No high-grade stenosis or occlusion visualized. <Electronically signed by Haresh Gaona > 10/06/20 [id number]
== END ==
LOC: M RAD 10:50
PROVIDERS: ATTEND Surgery
DX: I87.311 Chronic venous hypertension (idiopathic) with ulcer of right lower extremity (principal); L97.812 Non-pressure chronic ulcer of other part of right lower leg with fat layer exposed

== ENCOUNTER → 2020-10-25 | Outpatient (POV) | payer BC ==
[~2020-10-25] VITALS: Ht 157.5 cm; Wt 168.0 kg
[2020-10-25 13:02] VITALS: BP 165/70
--- NOTE | 2020-10-25 15:23 | IRCOV ---
[facility] IR Consult Office Visit IR Consult Office Visit DATE: October 25, 2020 REASON FOR CONSULTATION/CHIEF COMPLAINT: Right lower extremity ulcer. HISTORY OF PRESENT ILLNESS: 55-year-old female with worsening ulceration over the anterior and lateral right lower tibia, associated with lower extremity swelling and dry itchy skin. Patient has extreme bilateral lower extremity swelling. She states this started in February 2020, about the same time when this ulcer started. Her bilateral lower extremity edema is 24/7 and does not change with limb elevation. She is morbidly obese. She walks around the house with a walker and is able to get to her appointments and to the car, using a walker. She does work part-time at [employer] and she uses a motorized vehicle to get around [employer]. She is not otherwise physically active. 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 She denies prior history of DVT. She has no prior venous imaging. She was treated for saddle PE at [facility]. She does suffer with hypertension. She denies chest pain. She does suffer with shortness of breath and sleep apnea. She denies intermittent claudication or rest pain in the legs. She denies prior arterial or venous intervention on the lower extremities. ALLERGIES: Please see below. HOME MEDICATIONS: Please see below. PAST MEDICAL HISTORY: Obesity Hypertension PCOS Left adrenal adenoma Diabetes PAST SURGICAL HISTORY: Laparoscopic cholecystectomy FAMILY HISTORY: Mother suffers with varicose veins. SOCIAL HISTORY: Nonsmoker. Denies alcohol or drugs. REVIEW OF SYSTEMS: Otherwise negative. PHYSICAL EXAMINATION: VITAL SIGNS: Please see below. GENERAL APPEARANCE: Appears well. Comfortable at rest. HEENT: No scleral icterus. RESPIRATORY: Normal breathing at rest. Speaking in sentences without shortness of breath. CARDIOVASCULAR: Normal rate. ABDOMEN: Severe central obesity. Abdomen nontender. EXTREMITIES: Severe bilateral lower extremity lymphedema. Skin temperature normal. Dry flaky skin on bilateral shins. Hemosiderin deposition and chronic skin discoloration. Pulses not palpable due to body habitus. I reviewed the images of the right [place] ulcers and progression with time. NEUROLOGICAL: Alert and oriented. PSYCHIATRIC: Appropriate to circumstance. LABORATORY DATA: 07/08/2020 hemoglobin 12.9 hematocrit 43.8 WBC 7.9 platelets 305 sodium 141 potassium 4.3 BUN 27 creatinine 0.96 INR 2.06 Imaging: No venous reflux study in the system. I personally reviewed the right lower extremity arterial ultrasound, performed 10/06/2020. Patent common femoral artery, superficial femoral artery, profunda femoris, popliteal, and posterior tibial artery without focal occlusion or stenosis. ASSESSMENT/PLAN: 55-year-old female, with bilateral lower extremity lymphedema and central obesity, presents for nonhealing right lower extremity ulcer. Her right lower extremity arteriogram is unremarkable. Patient may benefit from bilateral lower extremity venous reflux study to evaluate for saphenous vein incompetence, which would be amenable to EVLT therapy. Her ulcers are unlikely to heal without reduction in her lower extremity edema. This may be achieved with 30-40 mm or higher compression therapy to the groin, limb elevation and weight loss. We discussed these important points. We'll schedule the patient for bilateral lower extremity venous reflux study. I spent 45 minutes reviewing patient's records, imaging and in consultation with the patient. Thank you for this referral. Cc Dr. Love Allergies Uncoded Allergies: LACTOSE INTOLERANT (Allergy, Mild, DIARRHEA, 06/04/08) Home Medications Scheduled Atenolol (Atenolol), 50 MG PO BID, (Reported) Ergocalciferol (Vitamin D2) (Vitamin D2), 50,000 UNITS PO QWEEK, (Reported) Spironolactone (Spironolactone), 25 MG PO DAILY, (Reported) VS, I&O, 24H, Fishbone Vital Signs/I&O Vital Signs Date Time Temp Pulse Resp B/P (MAP) Pulse Ox O2 Delivery O2 Flow Rate FiO2 10/25/20 13:02 98.4 80 20 165/70 (101) 97 Room Air BENNY SWARTZ MD October 25, 2020 15:23
== END ==
LOC: M IRPOV 12:13
PROVIDERS: ATTEND Radiology Diagnostic Radiology
DX: L97.219 Non-pressure chronic ulcer of right calf with unspecified severity (principal); R60.0 Localized edema; D35.02 Benign neoplasm of left adrenal gland; E66.01 Morbid (severe) obesity due to excess calories; E28.2 Polycystic ovarian syndrome; E11.9 Type 2 diabetes mellitus without complications; E73.9 Lactose intolerance, unspecified; I10 Essential (primary) hypertension; Z86.711 Personal history of pulmonary embolism; Z79.01 Long term (current) use of anticoagulants

== ENCOUNTER → 2020-11-10 | Outpatient (REF) | payer BC ==
[2020-11-10 13:42] LABS: BASO % 0.5 % (0.0-1.0); EOS # 0.2 10^3/uL (0.0-0.5); EOS % 1.9 % (0.0-3.0); HEMATOCRIT 38.9 % (36.0-47.0); HEMOGLOBIN 11.6 g/dl (12.0-15.5); MEAN CORPUSCULAR HEMOGLOBIN 26.1 pg (27.0-33.0); MEAN CORPUSCULAR HGB CONC 29.8 g/dl (32.0-36.5); MEAN CORPUSCULAR VOLUME 87.4 fl (80.0-96.0); MONO # 0.7 10^3/uL (0.0-0.8); MONO % 8.8 % (2.0-8.0); NEUTROPHILS # 5.1 10^3/uL (1.5-8.5); NEUTROPHILS % 63.3 % (36.0-66.0); PLATELET COUNT, AUTOMATED 357 10^3/uL (150-450); RED BLOOD COUNT 4.45 10^6/uL (4.00-5.40)
[2020-11-10 13:57] LABS: INR 2.15; PROTHROMBIN TIME 24.5 SECONDS (12.5-14.3)
[2020-11-10 15:44] LABS: ALBUMIN 3.2 GM/DL (3.2-5.2); ALT/SGPT 17 U/L (12-78); BILIRUBIN,TOTAL 0.4 MG/DL (0.2-1.0); BLOOD UREA NITROGEN 23 MG/DL (7-18); CALCIUM LEVEL 9.1 MG/DL (8.5-10.1); CARBON DIOXIDE LEVEL 26 MEQ/L (21-32); CHLORIDE LEVEL 106 MEQ/L (98-107); CREATININE FOR GFR 0.92 MG/DL (0.55-1.30); FERRITIN 75 NG/ML (8-252); GLOMERULAR FILTRATION RATE > 60.0 (>51); GLUCOSE, FASTING 110 MG/DL (70-100); POTASSIUM SERUM 4.5 MEQ/L (3.5-5.1); PTH INTACT 54.2 PG/ML (18.5-88.0); SODIUM LEVEL 141 MEQ/L (136-145); TOTAL 25(OH) VITAMIN D 78.1 NG/ML (30.0-100.0); TOTAL PROTEIN 6.9 GM/DL (6.4-8.2); VITAMIN B12 LEVEL 401 PG/ML (247-911)
== END ==
LOC: M PLALAB 09:52
PROVIDERS: ATTEND Family Medicine
DX: D75.89 Other specified diseases of blood and blood-forming organs (principal); E55.9 Vitamin D deficiency, unspecified; E03.9 Hypothyroidism, unspecified; Z51.81 Encounter for therapeutic drug level monitoring

== ENCOUNTER → 2020-11-11 | Outpatient (CLI) | payer BC ==
--- NOTE | 2020-11-13 12:24 | REP ---
INDICATION: FABRICIO VENOUS HTN FABRICIO LEG REFLUX COMPARISON: None. TECHNIQUE: Robles scale and color Doppler evaluation using linear high frequency transducer. FINDINGS: Ultrasound examination of the right and left lower extremity deep venous structures from the common femoral vein through the popliteal veins are normal and without evidence for deep venous thrombosis. Calf veins could not be assessed due to technical factors. Right lower extremity demonstrates minimal amount of reflux through the common femoral and superficial femoral veins without reflux through the superficial system. Left lower extremity demonstrates minimal amount of reflux through the common femoral, superficial femoral, accessory, and popliteal vein without reflux through the greater saphenous or lesser saphenous veins. Left Alejandra's cyst measures 3.2 x 0.8 x 2.0 cm. IMPRESSION: No evidence for deep venous thrombosis. No significant reflux through the superficial systems bilaterally. As above. Alejandra's cyst in the left popliteal fossa. <Electronically signed by Humza Garcia > 11/13/20 [id number]
== END ==
LOC: M RAD 09:50
PROVIDERS: ATTEND Radiology Diagnostic Radiology
DX: I87.313 Chronic venous hypertension (idiopathic) with ulcer of bilateral lower extremity (principal); M71.22 Synovial cyst of popliteal space [Baker], left knee

== ENCOUNTER → 2020-11-29 | Outpatient (POV) | payer BC ==
[~2020-11-29] VITALS: Ht 157.5 cm; Wt 159.5 kg
[2020-11-29 12:50] VITALS: BP 181/77
[2020-11-29 13:09] VITALS: BP 152/78
--- NOTE | 2020-12-01 12:03 | IRPN ---
[facility] IR Progress Note IR Progress Note DATE: Nov 29, 2020 FOLLOW-UP: Patient with bilateral lower extremity edema and nonhealing right lower extremity wounds. She is here for the results of her venous ultrasound reflux study. IMAGING: I personally reviewed her bilateral lower extremity venous reflux study performed 11/11/2020. No significant greater or lesser saphenous vein reflux. IMPRESSION: 55-year-old female with bilateral lower extremity edema and nonhealing right lower extremity ulcers. Her venous reflux study was negative for saphenous vein competency. Allergies Uncoded Allergies: LACTOSE INTOLERANT (Allergy, Mild, DIARRHEA, 06/04/08) VS,Fishbone, I+O VS, Fishbone, I+O Vital Signs Date Time Temp Pulse Resp B/P (MAP) Pulse Ox O2 Delivery O2 Flow Rate FiO2 11/29/20 13:09 152/78 (102) 11/29/20 12:50 96.9 83 18 98 Room Air BENNY SWARTZ MD Dec 01, 2020 12:03
== END ==
LOC: M IRPOV 12:40
PROVIDERS: ATTEND Radiology Diagnostic Radiology
DX: R60.0 Localized edema (principal); L97.919 Non-pressure chronic ulcer of unspecified part of right lower leg with unspecified severity; E73.9 Lactose intolerance, unspecified

== ENCOUNTER → 2020-12-07 | Outpatient (CLI) | payer BC ==
[~2020-12-07] MED LIST changes: +ISOVUE-370 76% 100ML VIAL As Ordered ONE
--- NOTE | 2020-12-08 09:11 | REP ---
INDICATION: CHR VENOUS HTN W/ ULCER RLE,NON-PRESSURE ULCER RLE. COMPARISON: Comparison sonography October 06, 2020.. TECHNIQUE: Helical scanning is acquired following the intravenous injection of 100 mL of Isovue 370. 3 mm axial images re-formatted. Coronal and sagittal MPR, coronal MIP, and 3D surface rendered post process M images are provided. FINDINGS: Nonvascular findings: There clips in the gallbladder fossa. There is beam hardening artifact throughout the study due to patient body habitus. There are a few mildly hypertrophic appearing lymph nodes in the right groin consistent with reactive lymphadenopathy. Similarly, there are scattered bilateral external iliac and internal iliac pelvic nodes. The largest of the pelvic nodes on the right measuring 18 mm in short axis dimension. No periaortic adenopathy is seen. These lymph nodes are centrally unchanged from comparison CT study December 02, 2015. There is a low-density cystic enlargement of the left ovary with overall dimensions 6.7 x 3.8 by 4.0 cm. This left adnexal cystic lesion is also unchanged from the December 02, [address] study. There is diffuse fatty infiltration of the liver. Angiographic features: The suprarenal and infrarenal abdominal aorta is normal in caliber widely patent. There is good opacification of the large central arteries. There is some image degradation due to body habitus as above. The celiac and superior mesenteric axes are widely patent. Singular nonstenotic renal arteries are observed. The inferior mesenteric artery is patent at its origin. The common iliac arteries are patent bilaterally. There is mild focal calcification of the distal portion of the right common iliac artery without high-grade stenosis. The external and internal iliac arteries are patent bilaterally. Common femoral arteries are unremarkable. The profundal and superficial femoral arteries are intact bilaterally. No high-grade stenosis or occlusion seen. Popliteal arteries are of good caliber bilaterally. There is bilateral lower extremity diffuse subcutaneous and fascial edema. On the right, there is early venous opacification consistent with hyperemia. The tibial-peroneal trunk appears patent although it is less than optimally seen due to adjacent veins and the runoff calf arteries are felt to be patent to the distal calf. On the left the tibial-peroneal trunk appears to be patent. The calf runoff arteries cannot be seen below distal calf on the left there is some venous opacification on the left as well. IMPRESSION: No high-grade stenosis or occlusion is seen in the arterial tree. There is some image degradation as above. The left calf arteries cannot be seen beyond the mid to distal calf segment. There is bilateral lower extremity edema right greater than left. Some reactive lymphadenopathy is seen. Stable left ovarian cystic lesion. Fatty infiltration of the liver. <Electronically signed by Haresh Gaona > 12/08/20 0909
== END ==
LOC: M RAD 15:45
PROVIDERS: ATTEND Surgery
DX: I87.311 Chronic venous hypertension (idiopathic) with ulcer of right lower extremity (principal); L97.812 Non-pressure chronic ulcer of other part of right lower leg with fat layer exposed; R60.0 Localized edema; K76.0 Fatty (change of) liver, not elsewhere classified
CPT/HCPCS: 75635; Q9967

== ENCOUNTER 2021-01-13 14:36 | Inpatient (IN) | payer BC ==
[~2021-01-13] VITALS: Ht 157.5 cm; Wt 170.0 kg
[~2021-01-13 14:36] MED LIST changes: -ACET650T61 PO; -ALEV220T22 PO; -C 50TAB PO; -CARV6.25 PO; -ERGO500029 PO; -FLUTISP NARES; -GABA-1171 PO; -GABA-282 PO; -METH-1164 PO; -WARF-18 PO; -WARF-23 PO
--- NOTE | 2021-01-13 16:56 | REP ---
INDICATION: osteomyelitis. COMPARISON: None. TECHNIQUE: Four views FINDINGS: The bones are demineralized. Degenerative changes seen throughout the foot. The exam is limited by positioning and technique. I cannot rule out an acute fracture. Large plantar and retrocalcaneal heel spurs are present. Plantar to the calcaneal heel spur there is a triangular-shaped ossific density. 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 IMPRESSION: Chronic changes and exam limitations. I cannot rule out a fracture. I cannot rule out osteomyelitis. MRI is recommended. <Electronically signed by Daniel Herr > 01/13/21 [id number]
--- NOTE | 2021-01-13 17:00 | HPEPDOC ---
General Date of Admission 01/13/21 Date of Service: Jan 13, 2021 Chief Complaint The patient is a 55-year-old female admitted with a reason for visit of Leg Swelling. Source: Patient Exam Limitations: No limitations History of Present Illness Patient is 55 years old female with past medical history of morbid obesity, obstructive sleep apnea, pulmonary emboli on chronic anticoagulation, hypertension, type 2 diabetes chronic kidney disease stage III, vitamin D deficiency, PVD was directly admitted to hospital from Dr. Love office. Patient was treated with debridement today, Dr. Love debrided right ankle foot and he recommended to hospitalize patients due to extensive necrotic wound and and patient needs to be evaluated by plastic surgeon Dr. Arrington. Of note patient has a long history of peripheral vascular disease and etiology of her right extensive wound most likely venous stasis. Patient had arterial Doppler study, her lower extremity arteries were patent. Patient denied fever, chills, nausea, vomiting, diarrhea or dysuria. I talked to Dr. Love by phone who told me that patient was not compliant to her treatment. Home Medications Scheduled Atenolol (Atenolol) 50 Mg Tab, 50 MG PO BID, (Reported) pt states not taking doesnt like how it makes her feel Ergocalciferol (Vitamin D2) (Vitamin D2) 50,000 Unit Cap, 50,000 UNITS PO QWEEK, (Reported) Spironolactone (Spironolactone) 50 Mg Tab, 25 MG PO DAILY, (Reported) Allergies Coded Allergies: lactose (Verified Adverse Reaction, Mild, INTOLERANCE, 01/13/21) Past Medical History Medical History HYPERTENSION-JUNE 2008 NORMAL AST AND TTE-NIKKI T2DM NID PCOS WITH SECONDARY DUB AND HIRSUTISM-08/2016 NORMAL THYROID US L ADRENAL ADENOMA FIRST IMAGED BY 04/2003 CT-NEGATIVE FUNCTIONAL STATUS 10/2003 OBESITY, MORBID CHRONIC KIDNEY DISEASE STAGE III-JUNE 2008 NORMAL ULTRASOUND OBESITY, SUPER UMBILICAL HERNIA VITAMIN D DEFICIENCY ALLERGIC RHINITIS LUMBAR DJD, SEVERE, MULTI-LEVEL WITH SYDESMOPHYTE FORMATION OF LOWER THORACIC/UPPER LUMBAR AND MODERATE-SEVERE POSTERIOR DSN BY 08/2016 XRAY B EXTENSIVE SADDLE PE BY 08/2016 CTA, -BLE DVT US-[facility]-VKA STARTED, 10/2016 - FVL, PT GENE MUTATION, LOW NORMAL PROTEIN C/S BUT ON VKA, FAVORED 2 3H PRECEDENT CAR RIDE R HIP MODERATE OA BY 08/2016 XRAY NAFLD-MILD BY 06/2018 CT AP ARLINE, MODERATE-08/20/19 HST RDI 10 C SAO2 TO 76% Surgical History LAPAROSCOPIC CHOLECYSTECTOMY 1997 Family History I personally reviewed family history and found not pertinent Social History * Smoker: Denies Alcohol: Denies Drugs: denies A-FIB/CHADSVASC A-FIB History Current/History of A-Fib/PAF?: No Current PO Anticoag Therapy: No Review of Systems Constitutional: Denies: Chills, Fever Eyes: Denies: Pain, Vision change ENT: Denies: Head Aches Skin: Reports: Lesions; Denies: Rash Pulmonary: Denies: Dyspnea Cardiovascular: Denies: Chest Pain Gastrointestinal: Denies: Nausea, Vomiting Genitourinary: Denies: Dysuria Hematologic: Denies: Bruising Endocrine: Denies: Polydipsia Musculoskeletal: Denies: Neck Pain Neurological: Denies: Weakness Psych: Reports: Mood Normal Physical Examination General Exam: Positive: Alert, Cooperative Eye Exam: Positive: PERRLA ENT Exam: Positive: Atraumatic Neck Exam: Positive: Supple; Negative: JVD Chest Exam: Positive: Clear to auscultation Heart Exam: Positive: Rate Normal Telemetry: Positive: No significant arrhythmia Abdomen Exam: Positive: Normal bowel sounds Extremity Exam: Positive: Swelling (Right leg swelling around circumferential wound), Other (Circumferential wound around 15 to 20 cm circumferential in the right ankle area) Skin Exam: Positive: Nl turgor and temperature Neuro Exam: Positive: Strength at 5/5 X4 ext Psych Exam: Positive: Mental status NL Vital Signs Vital Signs Date Time Temp Pulse Resp B/P (MAP) Pulse Ox O2 Delivery O2 Flow Rate FiO2 01/13/21 14:36 98.2 92 20 114/58 (76) 98 Room Air Laboratory Data Labs 24H Laboratory Tests 2 01/13/21 16:29: Assessment/Plan Patient is 55 years old female with past medical history of morbid obesity, obstructive sleep apnea, pulmonary emboli on chronic anticoagulation, hypertension, type 2 diabetes chronic kidney disease stage III, vitamin D deficiency, PVD was directly admitted to hospital from Dr. Love office. Patient was treated with debridement today, Dr. Love debrided right ankle foot and he recommended to hospitalize patients due to extensive necrotic wound and and patient needs to be evaluated by plastic surgeon Dr. Arrington. Of note patient has a long history of peripheral vascular disease and etiology of her right extensive wound most likely venous stasis. Patient had arterial Doppler study, her lower extremity arteries were patent. Patient denied fever, chills, nausea, vomiting, diarrhea or dysuria. I talked to Dr. Love by phone who told me that patient was not compliant to her treatment. Problems (1) Leg wound, right Status: Chronic Problem Text: Dr. Love did wound debridement today We will check sedimentation rate, CRP Will proceed with MRI to rule out osteomyelitis Follow crop pest control specialist recommendation Appreciate/agree with wound care consult and plastic surgeon consult (2) Morbid obesity Status: Chronic Problem Text: BMI 68.5 Complicated care (3) Peripheral vascular disease Status: Chronic Problem Text: Legs elevation, stockings Follow-up with wound care in the outpatient settings (4) History of pulmonary embolism Status: Chronic Problem Text: Coumadin changed for Lovenox Continue to monitor INR/PT (5) Hypertension Status: Chronic Problem Text: Blood pressure under control Continue to monitor (6) Type 2 diabetes mellitus Status: Chronic Problem Text: Diabetes diet Insulin sliding scale Plan / VTE VTE Prophylaxis Ordered?: Yes NYDIA LARSON DO Jan 13, 2021 17:00
[2021-01-13] MEDS ORDERED: GLUCOSE 4GM CHEW TABLET PO PRN (17:15)
[2021-01-13] MEDS ORDERED: GLUCAGON INJ 1MG VIAL SC PRN (17:15)
[2021-01-13] MEDS ORDERED: DEXTROSE 50% 50 ML SYRINGE IV PRN (17:15)
[2021-01-13 17:18] LABS: RSV AMPLIFICATION NEGATIVE (NEGATIVE)
[2021-01-13 18:00] VITALS: BP 180/78
[2021-01-13] MEDS: HumaLOG INSULIN (NovoLOG) PER UNIT SC SCH ×2 (18:30→21:00)
[2021-01-13 18:45] LABS: HEMATOCRIT 32.7 % (36.0-47.0); HEMOGLOBIN 9.4 g/dl (12.0-15.5); MEAN CORPUSCULAR HEMOGLOBIN 24.7 pg (27.0-33.0); MEAN CORPUSCULAR HGB CONC 28.7 g/dl (32.0-36.5); MEAN CORPUSCULAR VOLUME 85.8 fl (80.0-96.0); PLATELET COUNT, AUTOMATED 460 10^3/uL (150-450); RED BLOOD COUNT 3.81 10^6/uL (4.00-5.40); WHITE BLOOD COUNT 16.6 10^3/uL (4.0-10.0)
[2021-01-13] MEDS ORDERED: WARF-23 PO (18:51)
[2021-01-13] MEDS ORDERED: GABA-282 PO (18:51)
[2021-01-13] MEDS ORDERED: ACET650T61 PO (18:51)
[2021-01-13] MEDS ORDERED: ERGO500029 PO (18:51)
[2021-01-13] MEDS ORDERED: WARF-18 PO (18:51)
[2021-01-13] MEDS ORDERED: C 50TAB PO (18:51)
[2021-01-13] MEDS ORDERED: GABA-1171 PO ×2 (18:51)
[2021-01-13] MEDS ORDERED: FLUTISP NARES (18:51)
[2021-01-13] MEDS ORDERED: METH-1164 PO (18:51)
[2021-01-13] MEDS ORDERED: ALEV220T22 PO (18:51)
[2021-01-13] MEDS ORDERED: CARV6.25 PO (18:51)
[2021-01-13 18:55] LABS: INR 3.58
[2021-01-13] MEDS ORDERED: HOME MED LIST COMPLETE! XX SCH (18:55)
[2021-01-13 19:05] LABS: ERYTHROCYTE SEDIMENTATION RATE 113 mm/hr (0-30)
[2021-01-13 19:13] LABS: ALBUMIN 2.8 GM/DL (3.2-5.2); BILIRUBIN,TOTAL 0.4 MG/DL (0.2-1.0); C REACTIVE PROTEIN QUANTITATIV 13.1 MG/DL (0.00-0.30); CALCIUM LEVEL 8.7 MG/DL (8.5-10.1); CREATININE FOR GFR 1.05 MG/DL (0.55-1.30); GLOMERULAR FILTRATION RATE 58.4 (>51); POTASSIUM SERUM 4.6 MEQ/L (3.5-5.1); TOTAL PROTEIN 6.9 GM/DL (6.4-8.2)
[2021-01-13] MEDS: methocarbamoL 500 MG TAB PO SCH (21:17)
[2021-01-13] MEDS: GABAPENTIN 300 MG CAP PO SCH (21:18)
[2021-01-13] MEDS: PERCOCET 5MG/325MG TAB PO PRN (21:19)
[2021-01-13] MEDS: CARVedilol 6.25 MG TAB PO SCH (21:22)
--- NOTE | 2021-01-13 22:08 | REPVR ---
PROCEDURE INFORMATION: Exam: MR Right Lower Extremity Other Than Joint Without Contrast; Foot Exam date and time: 01/13/2021 8:36 PM Age: 55 years old Clinical indication: Right; Patient HX: Leg swollen, foot pain, R/O osteo; Additional info: Osteomyelitis TECHNIQUE: Imaging protocol: MR of the Right lower extremity without contrast. Exam focused on the foot. COMPARISON: CR Foot, complete 01/13/2021 4:38 PM FINDINGS: Bones and cartilage: There is no evidence of destructive change of bone and no evidence of osteomyelitis. Achilles tendon: There is a small intrasubstance tear distal Achilles tendon. Tarsal canal (Sinus tarsi): Unremarkable. Tarsal tunnel: Unremarkable. Soft tissues: There is severe soft tissue swelling through the ankle Plantar fascia: There is a very large plantar calcaneal spur with thickening of the plantar fascia. IMPRESSION: 1. There is prominent diffuse soft tissue swelling of the foot which may be the result of changes of cellulitis. 2. No destructive change of bone and no evidence of osteomyelitis . Electronically signed by: Conor Villalobos On 01/13/2021 22:08:08 PM
[2021-01-13 22:24] VITALS: BP 133/62
[2021-01-13] MEDS: hydrOXYzine 25 MG TAB PO PRN (22:35)
[2021-01-14] MEDS: ACETAMINOPHEN TAB 650MG DOSE (2X325MG) PO PRN (01:23)
[2021-01-14] MEDS ORDERED: MORPHINE 2 MG/ML 1ML VIAL (J2270) IV ONE (01:35)
[2021-01-14 06:00] VITALS: BP 134/74
[2021-01-14] MEDS: hydrOXYzine 25 MG TAB PO PRN (06:29)
[2021-01-14] MEDS: PERCOCET 5MG/325MG TAB PO PRN ×2 (06:31→13:04)
[2021-01-14] MEDS ORDERED: GABAPENTIN 100 MG CAP PO PRN (08:10)
[2021-01-14] MEDS: HumaLOG INSULIN (NovoLOG) PER UNIT SC SCH ×4 (08:10→21:00)
[2021-01-14 08:22] LABS: HEMATOCRIT 30.8 % (36.0-47.0); MEAN CORPUSCULAR HEMOGLOBIN 24.8 pg (27.0-33.0); MEAN CORPUSCULAR HGB CONC 29.2 g/dl (32.0-36.5); MEAN CORPUSCULAR VOLUME 84.8 fl (80.0-96.0); PLATELET COUNT, AUTOMATED 436 10^3/uL (150-450); RED BLOOD COUNT 3.63 10^6/uL (4.00-5.40); WHITE BLOOD COUNT 12.7 10^3/uL (4.0-10.0)
[2021-01-14 08:33] LABS: INR 3.24; PROTHROMBIN TIME 33.3 SECONDS (12.7-14.5)
[2021-01-14 08:48] LABS: ALBUMIN 2.5 GM/DL (3.2-5.2); BILIRUBIN,TOTAL 0.3 MG/DL (0.2-1.0); CREATININE FOR GFR 1.03 MG/DL (0.55-1.30); GLOMERULAR FILTRATION RATE 59.7 (>51); MAGNESIUM LEVEL 2.3 MG/DL (1.8-2.4); POTASSIUM SERUM 4.5 MEQ/L (3.5-5.1); TOTAL PROTEIN 6.6 GM/DL (6.4-8.2)
[2021-01-14] MEDS: FLUTICASONE PROP 0.05% NASAL SPRAY 16 GM (FLONASE) NARES SCH (09:59)
[2021-01-14] MEDS: SPIRONOLACTONE 50 MG TAB PO SCH (09:59)
[2021-01-14] MEDS: CARVedilol 6.25 MG TAB PO SCH ×2 (10:01→20:52)
[2021-01-14] MEDS: GABAPENTIN 100 MG CAP PO SCH (10:01)
[2021-01-14] MEDS: methocarbamoL 500 MG TAB PO SCH ×2 (10:02→20:51)
[2021-01-14] MEDS: ASCORBIC ACID 500 MG TAB PO SCH (10:02)
[2021-01-14 13:46] VITALS: BP 116/60
--- NOTE | 2021-01-14 14:59 | IPNPDOC ---
Text Note Date of Service The patient was seen on 01/14/21. NOTE Subjective: No new acute events overnight. Patient continues to complain of the pain of the right ankle. Objective: GENERAL APPEARANCE: Morbidly obese female HEENT: no scleral icterus, no JVD, EOMI CARDIOVASCULAR: S1S2 LUNGS: Diminished lung sounds bilaterally ABDOMEN: soft & not tender w palpation, obese MUSCULOSKELETAL: Right lower extremity wound 10.5cm to 29 cm, foul-smelling INTEGUMENT: no generalized pallor NEUROLOGICAL: cranial nerve function from 2-12 intact, follows commands, speech not dysarthric Assessment/Plan Patient is 55 years old female with past medical history of morbid obesity, obstructive sleep apnea, pulmonary emboli on chronic anticoagulation, hypertension, type 2 diabetes chronic kidney disease stage III, vitamin D deficiency, PVD was directly admitted to hospital from Dr. Love office. Patient was treated with debridement today, Dr. Love debrided right ankle foot and he recommended to hospitalize patients due to extensive necrotic wound and and patient needs to be evaluated by plastic surgeon Dr. Arrington. Of note patient has a long history of peripheral vascular disease and etiology of her right extensive wound most likely venous stasis. Patient had arterial Doppler study, her lower extremity arteries were patent. Patient denied fever, chills, nausea, vomiting, diarrhea or dysuria. I talked to Dr. Love by phone who told me that patient was not compliant to her treatment. Problems (1) Leg wound, right Dr. Love recommended plastic surgery consult MRI negative for osteomyelitis Follow event specialist recommendation Await wound culture Procalcitonin negative, patient normotensive (2) Morbid obesity BMI 68.5 Complicated care Patient will benefit from bariatric surgery (3) Peripheral vascular disease Legs elevation, stockings Follow-up with wound care in the outpatient settings (4) History of pulmonary embolism/supratherapeutic INR Coumadin changed for Lovenox Continue to monitor INR/PT. Lovenox on hold due to supratherapeutic INR (5) Hypertension Blood pressure under control Continue to monitor (6) Type 2 diabetes mellitus Diabetes diet Insulin sliding scale VS,Fishbone, I+O VS, Fishbone, I+O Laboratory Tests 01/13/21 18:32 01/14/21 07:57 Vital Signs Date Time Temp Pulse Resp B/P (MAP) Pulse Ox O2 Delivery O2 Flow Rate FiO2 01/14/21 13:46 98.9 81 15 116/60 (40) 98 Room Air I&O- Last 24 Hours up to 6 AM 01/14/21 06:00 Intake Total 720 ml Balance 720 ml NYDIA LARSON DO Jan 14, 2021 14:59
[2021-01-14] MEDS: MORPHINE 2 MG/ML 1ML VIAL (J2270) IV PRN (15:52)
[2021-01-14] MEDS: GABAPENTIN 300 MG CAP PO SCH (20:52)
[2021-01-14 22:00] VITALS: BP 137/65
[2021-01-15] MEDS: VANCOMYCIN HCL 1,000 MG, VIAL MATE ADAPTER 1 EACH in NS 250 ML IV SCH ×4 (01:00→15:31)
[2021-01-15 02:00] VITALS: BP 142/85
[2021-01-15] MEDS: hydrOXYzine 25 MG TAB PO PRN ×2 (04:16→23:42)
[2021-01-15] MEDS: PERCOCET 5MG/325MG TAB PO PRN ×3 (04:16→23:43)
[2021-01-15 06:00] VITALS: BP 141/80
[2021-01-15 06:20] LABS: BASO % 0.4 % (0.0-1.0); EOS # 0.2 10^3/uL (0.0-0.5); EOS % 2.2 % (0.0-3.0); LYMPH # 2.4 10^3/uL (1.5-5.0); LYMPH % 21.7 % (24.0-44.0); MEAN CORPUSCULAR HEMOGLOBIN 24.7 pg (27.0-33.0); MEAN CORPUSCULAR VOLUME 84.9 fl (80.0-96.0); MONO # 1.1 10^3/uL (0.0-0.8); MONO % 10.1 % (2.0-8.0); NEUTROPHILS # 7.1 10^3/uL (1.5-8.5); NEUTROPHILS % 64.1 % (36.0-66.0); PLATELET COUNT, AUTOMATED 430 10^3/uL (150-450); RED BLOOD COUNT 3.65 10^6/uL (4.00-5.40)
[2021-01-15 06:31] LABS: INR 2.27; PROTHROMBIN TIME 25.4 SECONDS (12.7-14.5)
[2021-01-15 06:47] LABS: CALCIUM LEVEL 8.5 MG/DL (8.5-10.1); CREATININE FOR GFR 1.03 MG/DL (0.55-1.30); GLOMERULAR FILTRATION RATE 59.7 (>51); MAGNESIUM LEVEL 2.3 MG/DL (1.8-2.4); POTASSIUM SERUM 4.6 MEQ/L (3.5-5.1)
[2021-01-15] MEDS: HumaLOG INSULIN (NovoLOG) PER UNIT SC SCH ×4 (07:30→21:00)
[2021-01-15] MEDS: ASCORBIC ACID 500 MG TAB PO SCH (08:59)
[2021-01-15] MEDS: GABAPENTIN 100 MG CAP PO SCH (08:59)
[2021-01-15] MEDS: CARVedilol 6.25 MG TAB PO SCH ×2 (08:59→23:42)
[2021-01-15] MEDS: methocarbamoL 500 MG TAB PO SCH ×2 (08:59→23:41)
[2021-01-15] MEDS: SPIRONOLACTONE 50 MG TAB PO SCH (08:59)
[2021-01-15] MEDS: FLUTICASONE PROP 0.05% NASAL SPRAY 16 GM (FLONASE) NARES SCH (09:00)
[2021-01-15] MEDS: ENOXAPARIN 150MG/ML SYRINGE (J1650 PER 10MG) SC SCH ×2 (10:19→21:00)
[2021-01-15 14:00] VITALS: BP 126/63
--- NOTE | 2021-01-15 17:03 | IPNPDOC ---
Text Note Date of Service The patient was seen on 01/15/21. NOTE Subjective: No new acute events overnight. No fever or chills. Patient stated that her right ankle pain subsided. Objective: GENERAL APPEARANCE: Morbidly obese female HEENT: no scleral icterus, no JVD, EOMI CARDIOVASCULAR: S1S2 LUNGS: Diminished lung sounds bilaterally ABDOMEN: soft & not tender w palpation, obese MUSCULOSKELETAL: Right lower extremity wound 10.5cm to 29 cm, foul-smelling INTEGUMENT: no generalized pallor NEUROLOGICAL: cranial nerve function from 2-12 intact, follows commands, speech not dysarthric Assessment/Plan Patient is 55 years old female with past medical history of morbid obesity, obstructive sleep apnea, pulmonary emboli on chronic anticoagulation, hypertension, type 2 diabetes chronic kidney disease stage III, vitamin D defi ciency, PVD was directly admitted to hospital from Dr. Love office. Patient was treated with debridement today, Dr. Love debrided right ankle foot and he recommended to hospitalize patients due to extensive necrotic wound and and patient needs to be evaluated by plastic surgeon Dr. Arrington. Of note patient has a long history of peripheral vascular disease and etiology of her right extensive wound most likely venous stasis. Patient had arterial Doppler study, her lower extremity arteries were patent. Patient denied fever, chills, nausea, vomiting, diarrhea or dysuria. I talked to Dr. Love by phone who told me that patient was not compliant to her treatment. Problems (1) Leg wound, right Dr. Love recommended plastic surgery consult MRI negative for osteomyelitis Follow automotive sales specialist recommendation Await wound culture Procalcitonin negative, patient normotensive 1 set of blood culture came back positive for gram-positive cocci in clusters. Continue vancomycin for now. I will repeat blood culture MRSA negative (2) Morbid obesity BMI 68.5 Complicated care Patient will benefit from bariatric surgery (3) Peripheral vascular disease Legs elevation, stockings Follow-up with wound care in the outpatient settings (4) History of pulmonary embolism/supratherapeutic INR Coumadin changed for Lovenox INR in therapeutic range, started Lovenox (5) Hypertension Blood pressure under control Continue to monitor (6) Type 2 diabetes mellitus Diabetes diet Insulin sliding scale VS,Fishbone, I+O VS, Fishbone, I+O Laboratory Tests 01/15/21 06:02 Vital Signs Date Time Temp Pulse Resp B/P (MAP) Pulse Ox O2 Delivery O2 Flow Rate FiO2 01/15/21 15:31 18 01/15/21 08:59 83 140/77 01/15/21 06:00 98.0 98 Room Air I&O- Last 24 Hours up to 6 AM 01/15/21 06:00 Intake Total 1050 ml Output Total 1000 ml Balance 50 ml NYDIA LARSON DO Jan 15, 2021 17:03
[2021-01-15] MEDS: ACETAMINOPHEN TAB 650MG DOSE (2X325MG) PO PRN (17:40)
[2021-01-15 22:00] VITALS: BP 107/53
[2021-01-15] MEDS: GABAPENTIN 300 MG CAP PO SCH (23:42)
[2021-01-16] MEDS ORDERED: VANCOMYCIN HCL 1,000 MG, VIAL MATE ADAPTER 1 EACH in NS 250 ML IV SCH (04:00)
[2021-01-16] MEDS: PERCOCET 5MG/325MG TAB PO PRN ×3 (04:59→21:06)
[2021-01-16 05:13] VITALS: BP 105/64
[2021-01-16 06:16] LABS: BASO # 0.1 10^3/uL (0.0-0.2); BASO % 0.6 % (0.0-1.0); EOS # 0.3 10^3/uL (0.0-0.5); EOS % 3.3 % (0.0-3.0); LYMPH # 2.4 10^3/uL (1.5-5.0); LYMPH % 26.9 % (24.0-44.0); MEAN CORPUSCULAR HEMOGLOBIN 24.4 pg (27.0-33.0); MEAN CORPUSCULAR HGB CONC 28.1 g/dl (32.0-36.5); MEAN CORPUSCULAR VOLUME 86.7 fl (80.0-96.0); MONO # 0.8 10^3/uL (0.0-0.8); MONO % 9.1 % (2.0-8.0); NEUTROPHILS # 5.2 10^3/uL (1.5-8.5); NEUTROPHILS % 58.6 % (36.0-66.0); PLATELET COUNT, AUTOMATED 408 10^3/uL (150-450); RED BLOOD COUNT 3.69 10^6/uL (4.00-5.40); WHITE BLOOD COUNT 8.9 10^3/uL (4.0-10.0)
[2021-01-16 06:37] LABS: BLOOD UREA NITROGEN 15 MG/DL (7-18); CALCIUM LEVEL 8.6 MG/DL (8.5-10.1); CARBON DIOXIDE LEVEL 27 MEQ/L (21-32); CHLORIDE LEVEL 108 MEQ/L (98-107); CREATININE FOR GFR 1.01 MG/DL (0.55-1.30); GLOMERULAR FILTRATION RATE > 60.0 (>51); GLUCOSE, FASTING 140 MG/DL (70-100); MAGNESIUM LEVEL 2.4 MG/DL (1.8-2.4); POTASSIUM SERUM 4.2 MEQ/L (3.5-5.1); SODIUM LEVEL 142 MEQ/L (136-145)
[2021-01-16 06:41] LABS: INR 1.74; PROTHROMBIN TIME 20.8 SECONDS (12.7-14.5)
[2021-01-16] MEDS: HumaLOG INSULIN (NovoLOG) PER UNIT SC SCH ×4 (08:13→21:00)
[2021-01-16] MEDS: methocarbamoL 500 MG TAB PO SCH ×2 (08:14→21:01)
[2021-01-16] MEDS: SPIRONOLACTONE 50 MG TAB PO SCH (08:14)
[2021-01-16] MEDS: ASCORBIC ACID 500 MG TAB PO SCH (08:14)
[2021-01-16] MEDS: CARVedilol 6.25 MG TAB PO SCH ×2 (08:16→21:02)
[2021-01-16] MEDS: GABAPENTIN 100 MG CAP PO SCH (08:17)
[2021-01-16] MEDS: ENOXAPARIN 150MG/ML SYRINGE (J1650 PER 10MG) SC SCH ×2 (08:18→21:01)
[2021-01-16] MEDS: FLUTICASONE PROP 0.05% NASAL SPRAY 16 GM (FLONASE) NARES SCH (08:18)
[2021-01-16] MEDS ORDERED: VITAMIN D 50,000 UNITS CAPSULE (ERGOCALCIFEROL 1.25MG) PO SCH (09:00)
[2021-01-16 14:00] VITALS: BP 110/65
[2021-01-16] MEDS: MORPHINE 2 MG/ML 1ML VIAL (J2270) IV PRN (15:03)
[2021-01-16] MEDS ORDERED: LevoFLOXacin 500 MG TABLET PO ONE (16:10)
--- NOTE | 2021-01-16 16:11 | IPNPDOC ---
Text Note Date of Service The patient was seen on 01/16/21. NOTE Subjective: No acute events overnight. No fever or chills. Objective: GENERAL APPEARANCE: Morbidly obese female HEENT: no scleral icterus, no JVD, EOMI CARDIOVASCULAR: S1S2 LUNGS: Diminished lung sounds bilaterally ABDOMEN: soft & not tender w palpation, obese MUSCULOSKELETAL: Right lower extremity wound 10.5cm to 29 cm, foul-smelling INTEGUMENT: no generalized pallor NEUROLOGICAL: cranial nerve function from 2-12 intact, follows commands, speech not dysarthric Assessment/Plan Patient is 55 years old female with past medical history of morbid obesity, ob structive sleep apnea, pulmonary emboli on chronic anticoagulation, hypertension, type 2 diabetes chronic kidney disease stage III, vitamin D deficiency, PVD was directly admitted to hospital from Dr. Love office. Patient was treated with debridement today, Dr. Love debrided right ankle foot and he recommended to hospitalize patients due to extensive necrotic wound and and patient needs to be evaluated by plastic surgeon Dr. Arrington. Of note patient has a long history of peripheral vascular disease and etiology of her right extensive wound most likely venous stasis. Patient had arterial Doppler study, her lower extremity arteries were patent. Patient denied fever, chills, nausea, vomiting, diarrhea or dysuria. I talked to Dr. Love by phone who told me that patient was not compliant to her treatment. Problems (1) Leg wound, right Dr. Love recommended plastic surgery consult MRI negative for osteomyelitis Follow cost control specialist recommendation wound culture positive for Proteus mirabilis and Corynebacterium species sensitive to levofloxacin Procalcitonin negative, patient normotensive 1 set of blood culture came back positive for gram-positive cocci in clusters. Repeated blood culture negative. Most likely 1 set of blood cultures its contamination, discontinue vancomycin for now. MRSA negative Dr. Arrington will proceed with debridement tomorrow. Patient cleared for surgery N.p.o. after midnight (2) Morbid obesity BMI 68.5 Complicated care Patient will benefit from bariatric surgery (3) Peripheral vascular disease Legs elevation, stockings Follow-up with wound care in the outpatient settings (4) History of pulmonary embolism/supratherapeutic INR Coumadin changed for Lovenox INR in therapeutic range, started Lovenox (5) Hypertension Blood pressure under control Continue to monitor (6) Type 2 diabetes mellitus Diabetes diet Insulin sliding scale VS,Fishbone, I+O VS, Fishbone, I+O Laboratory Tests 01/16/21 05:57 Vital Signs Date Time Temp Pulse Resp B/P (MAP) Pulse Ox O2 Delivery O2 Flow Rate FiO2 01/16/21 15:03 18 Room Air 01/16/21 14:00 98.2 78 110/65 (80) 98 I&O- Last 24 Hours up to 6 AM 01/16/21 06:00 Intake Total 1552 ml Output Total 1000 ml Balance 552 ml NYDIA LARSON DO Jan 16, 2021 16:11
--- NOTE | 2021-01-16 16:37 | CR.PDOC ---
Plastic Surgery Consultation Date of Consultation 01/16/21 History and Physical CONSULT REPORT FOR: Wound care REASON FOR CONSULTATION: Right lower extremity infected wound HISTORY OF PRESENT ILLNESS: 55 years old female with past medical history of morbid obesity, obstructive sleep apnea, pulmonary emboli on chronic anticoagulation, hypertension, type 2 diabetes chronic kidney disease stage III, vitamin D deficiency, PVD was directly admitted to hospital from Dr. Love office on January 13, 2021. Patient has chronic venous stasis ulcers on her right leg which were lasting for more than a year. Patient has poor compliance with her wound dressings. She lives with her mother who helps her with dressing changes. She is present at the bedside for her examination. She states that patient had odor from the wound for several days before the admission. She denies fever, chills, chest pain, shortness of breath. Patient has hyper sensation on her right lower extremity from previous dressing changes. 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 PAST MEDICAL HISTORY: HYPERTENSION-JUNE 2008 NORMAL AST AND TTE-NIKKI T2DM NID PCOS WITH SECONDARY DUB AND HIRSUTISM-08/2016 NORMAL THYROID US L ADRENAL ADENOMA FIRST IMAGED BY 04/2003 CT-NEGATIVE FUNCTIONAL STATUS 10/2003 OBESITY, MORBID CHRONIC KIDNEY DISEASE STAGE III-JUNE 2008 NORMAL ULTRASOUND OBESITY, SUPER UMBILICAL HERNIA VITAMIN D DEFICIENCY ALLERGIC RHINITIS LUMBAR DJD, SEVERE, MULTI-LEVEL WITH SYDESMOPHYTE FORMATION OF LOWER THORACIC/UPPER LUMBAR AND MODERATE-SEVERE POSTERIOR DSN BY 08/2016 XRAY B EXTENSIVE SADDLE PE BY 08/2016 CTA, -BLE DVT US-[facility]-VKA STARTED, 10/2016 - FVL, PT GENE MUTATION, LOW NORMAL PROTEIN C/S BUT ON VKA, FAVORED 2 3H PRECEDENT CAR RIDE R HIP MODERATE OA BY 08/2016 XRAY NAFLD-MILD BY 06/2018 CT AP ARLINE, MODERATE-08/20/19 HST RDI 10 C SAO2 TO 76% PAST SURGICAL HISTORY: INCLUDES: Laparoscopic cholecystectomy PREVIOUS ANESTHESIA REACTIONS: Denies ALLERGIES: Please see below. FAMILY HISTORY: Noncontributory HOME MEDICATIONS: Please see below. REVIEW OF SYSTEMS: GENERAL: Denies chills, reports weight gain,. Morbid obesity HEENT: Denies blurred vision and double vision. Denies ear symptoms. Denies hoarseness. NECK: Denies any neck pain]. CARDIOVASCULAR: Denies chest pain and palpitations. MUSCULOSKELETAL: Denies arthralgias, back pain and thrombophlebitis. SKIN: Denies rash. Right lower extremity venous stasis wound NEUROLOGIC: Denies headache, stroke and transient ischemic attack. PSYCHIATRIC: Denies anxiety and depression. ENDOCRINE: Denies thyroid disease. HEMATOLOGY/ONCOLOGY: Denies bleeding or clotting disorder. HEART: Denies any chest pains, palpitations, paroxysmal dyspnea, orthopnea. PULMONARY: Denies chronic cough, dyspnea and wheezing. GASTROINTESTINAL: Denies rectal bleeding, family history of colon cancer, constipation, diarrhea, dysphagia, heartburn and jaundice. GENITOURINARY: Denies dysuria, frequency, hematuria and nocturia. ENDOCRINE: Denies polydipsia, polyphagia, polyuria, heat or cold intolerance. INFECTIOUS: Denies any recent upper respiratory tract infection, UTI, need for use of antibiotics. NUTRITION: Reports good appetite. PHYSICAL EXAMINATION: VITALS SIGNS: Please see below. GENERAL APPEARANCE:Patient seen, laying in bed, awake, alert, and oriented. Comfortable, in no acute distress. Ambulates herself. SKIN: Warm and moist. Right lower extremity with circumferential open wound starting 10 cm below the knee down to the ankle. Areas of yellow necrosis. Foul order. Moderate serous drainage, no purulence. NECK: Supple, no thyromegaly. No obvious jugular venous distention. LUNGS: Clear to auscultation bilaterally. No wheezing appreciated. HEART: No chest wall abnormalities. Regular rate and rhythm with no murmurs appreciated. ABDOMEN: Abdomen is soft, non-tender, non-distended. EXTREMITIES: Extremities have no deformities. No calf tenderness. Lower extremity edema 2+ LABORATORY DATA: Please see below. IMAGING STUDIES: MRI right lower extremity from January 13, 2021. Results:1. There is prominent diffuse soft tissue swelling of the foot which may be the result of changes of cellulitis. 2. No destructive change of bone and no evidence of osteomyelitis IMPRESSION: Right lower extremity circumferential venous stasis ulcer with superficial infection. PLANS: Plan to take to the operating room for irrigation debridement of right lower extremity wound. Dressing changed today. Continue with bedrest with bathroom privileges to keep the right lower extremity elevated to improve edema status. Patient is medically cleared for procedure for tomorrow. N.p.o. after midnight. Risk, benefits, and alternatives of the procedure discussed with the patient and her mother who is present at the bedside. Both ready to proceed Vital Signs Vital Signs Date Time Temp Pulse Resp B/P (MAP) Pulse Ox O2 Delivery O2 Flow Rate FiO2 01/16/21 15:20 18 01/16/21 15:03 Room Air 01/16/21 14:00 98.2 78 110/65 (80) 98 I&Os I&O- Last 24 Hours up to 6 AM 01/16/21 06:00 Intake Total 1552 ml Output Total 1000 ml Balance 552 ml Laboratory Data Labs 24H Laboratory Tests 2 01/15/21 16:33: Bedside Glucose (Misc Panel) 100 01/15/21 21:11: Bedside Glucose (Misc Panel) 126H 01/15/21 23:04: Vancomycin Level Trough 22.3H 01/16/21 04:57: Bedside Glucose (Misc Panel) 118H 01/16/21 05:57: Immature Granulocyte % (Auto) 1.5, Neutrophils (%) (Auto) 58.6, Lymphocytes (%) (Auto) 26.9, Monocytes (%) (Auto) 9.1H, Eosinophils (%) (Auto) 3.3H, Basophils (%) (Auto) 0.6, Neutrophils # (Auto) 5.2, Lymphocytes # (Auto) 2.4, Monocytes # (Auto) 0.8, Eosinophils # (Auto) 0.3, Basophils # (Auto) 0.1, Nucleated Red Blood Cells % (auto) 0.0, Prothrombin Time 20.8H, Prothromb Time International Ratio 1.74, Anion Gap 7L, Glomerular Filtration Rate > 60.0, Calcium Level 8.6, Magnesium Level 2.4 01/16/21 11:28: Bedside Glucose (Misc Panel) 127H 01/16/21 14:43: Vancomycin Level Trough 20.2H CBC/BMP Laboratory Tests 01/16/21 05:57 Microbiology Microbiology 01/15/21 Blood Culture - Preliminary, Resulted No growth after 24 hours . All specim... 01/15/21 Blood Culture - Preliminary, Resulted No growth after 24 hours . All specim... 01/14/21 Wound Culture - Preliminary, Resulted Proteus Mirabilis Corynebacterium Species 01/13/21 Blood Culture - Preliminary, Resulted 01/13/21 Blood Culture - Preliminary, Resulted No Growth after 48 hours. All Specime... Home Medications Scheduled Acetaminophen (Tylenol Arthritis) 650 Mg Tablet.er, 650 MG PO BID, (Reported) Ascorbic Acid (Vitamin C) 500 Mg Tablet, 500 MG PO DAILY, (Reported) Carvedilol (Carvedilol) 6.25 Mg Tablet, 6.25 MG PO BID, (Reported) Ergocalciferol (Vitamin D2) (Vitamin D2) 50,000 Units Cap, 50,000 UNIT PO 2XW, (Reported) NO SPECIFIC DAYS Fluticasone Propionate (Fluticasone Propionate) 16 Gm [place].susp, 2 SPRAYS NARES DAILY, (Reported) Gabapentin (Gabapentin) 100 Mg Capsule, 100 MG PO DAILY, (Reported) Gabapentin (Gabapentin) 300 Mg Capsule, 300 MG PO QHS, (Reported) Methocarbamol (Methocarbamol) 500 Mg Tablet, 500 MG PO BID, (Reported) Spironolactone (Spironolactone) 50 Mg Tab, 50 MG PO DAILY, (Reported) Warfarin Sodium (Warfarin Sodium) 5 Mg Tablet, 5 MG PO QHS, (Reported) Warfarin Sodium (Warfarin Sodium) 2.5 Mg Tablet, 2.5 MG PO 1XWK, (Reported) HS ON FRIDAYS FOR TOTAL OF 7.5MG Scheduled PRN Gabapentin (Gabapentin) 100 Mg Capsule, 100 MG PO TID PRN for PAIN LEVEL 1-4, (Reported) Naproxen Sodium (Aleve) 220 Mg Tablet, 220 MG PO BID PRN for MILD BREAKTHROUGH PAIN, (Reported) Allergies Coded Allergies: TAPE (Verified Allergy, Mild, rash, 01/13/21) latex (Verified Allergy, Unknown, 01/13/21) lactose (Verified Adverse Reaction, Mild, INTOLERANCE, 01/13/21) RAYMUNDO ORELLANA DO Jan 16, 2021 16:37
[2021-01-16] MEDS: LevoFLOXacin 750 MG TABLET PO SCH (17:11)
[2021-01-16] MEDS: VANCOMYCIN HCL 1,000 MG, VIAL MATE ADAPTER 1 EACH in NS 250 ML IV SCH (17:11)
[2021-01-16] MEDS: GABAPENTIN 300 MG CAP PO SCH (21:01)
[2021-01-16] MEDS: ACETAMINOPHEN TAB 650MG DOSE (2X325MG) PO PRN (21:05)
[2021-01-16 22:00] VITALS: BP 123/42
[2021-01-17 04:22] LABS: BASO # 0.1 10^3/uL (0.0-0.2); BASO % 0.6 % (0.0-1.0); EOS # 0.3 10^3/uL (0.0-0.5); EOS % 3.6 % (0.0-3.0); HEMATOCRIT 31.4 % (36.0-47.0); LYMPH # 2.6 10^3/uL (1.5-5.0); MEAN CORPUSCULAR HEMOGLOBIN 24.6 pg (27.0-33.0); MEAN CORPUSCULAR HGB CONC 28.7 g/dl (32.0-36.5); MEAN CORPUSCULAR VOLUME 85.8 fl (80.0-96.0); MONO # 0.8 10^3/uL (0.0-0.8); MONO % 8.4 % (2.0-8.0); NEUTROPHILS # 5.1 10^3/uL (1.5-8.5); NEUTROPHILS % 56.8 % (36.0-66.0); PLATELET COUNT, AUTOMATED 395 10^3/uL (150-450); RED BLOOD COUNT 3.66 10^6/uL (4.00-5.40)
[2021-01-17] MEDS: ACETAMINOPHEN TAB 650MG DOSE (2X325MG) PO PRN ×2 (04:45→20:40)
[2021-01-17] MEDS: PERCOCET 5MG/325MG TAB PO PRN ×4 (04:46→23:14)
[2021-01-17 04:48] LABS: CALCIUM LEVEL 8.6 MG/DL (8.5-10.1); CREATININE FOR GFR 1.04 MG/DL (0.55-1.30); MAGNESIUM LEVEL 2.2 MG/DL (1.8-2.4); POTASSIUM SERUM 4.5 MEQ/L (3.5-5.1); VANCOMYCIN LEVEL TROUGH 18.5 UG/ML (10.0-20.0)
[2021-01-17] MEDS: VANCOMYCIN HCL 1,000 MG, VIAL MATE ADAPTER 1 EACH in NS 250 ML IV SCH (05:32)
[2021-01-17 06:00] VITALS: BP 127/44
[2021-01-17] MEDS ORDERED: LevoFLOXacin 500 MG TABLET PO SCH (06:00)
[2021-01-17] MEDS: HumaLOG INSULIN (NovoLOG) PER UNIT SC SCH ×4 (07:30→21:00)
[2021-01-17] MEDS: ENOXAPARIN 150MG/ML SYRINGE (J1650 PER 10MG) SC SCH ×2 (08:52→20:41)
[2021-01-17] MEDS: GABAPENTIN 100 MG CAP PO SCH (08:53)
[2021-01-17] MEDS: ASCORBIC ACID 500 MG TAB PO SCH (08:53)
[2021-01-17] MEDS: methocarbamoL 500 MG TAB PO SCH ×2 (08:54→20:40)
[2021-01-17] MEDS: FLUTICASONE PROP 0.05% NASAL SPRAY 16 GM (FLONASE) NARES SCH (08:54)
[2021-01-17] MEDS: CARVedilol 6.25 MG TAB PO SCH ×2 (08:54→20:41)
[2021-01-17] MEDS: SPIRONOLACTONE 50 MG TAB PO SCH (08:54)
--- NOTE | 2021-01-17 11:16 | IPNPDOC ---
Date Seen The patient was seen on 01/17/21. Progress Note SUBJECTIVE: No fever chills. Leukocytosis improved no other issues pain is controlled Very anxious. "I am afraid. " OBJECTIVE PHYSICAL EXAMINATION: VITAL SIGNS: Please see below. GENERAL: Morbidly obese no distress HEENT: No JVD moist mucous membranes CARDIOVASCULAR: S1-S2 regular rate rhythm RESPIRATORY: Diminished clear to auscultation no wheezing or rales ABDOMINAL: Obese soft nontender nondistended positive bowel sounds in 4 quadrants EXTREMITIES: Right lower extremity malodorous wound measures 10 x 28 cm LABORATORY DATA, IMAGING STUDIES, MICROBIOLOGY: Please see below. ASSESSMENT AND PLAN: 55-year-old with history of super morbid obesity BMI 68.5, obstructive sleep apnea, PE on chronic anticoagulation, hypertension, type 2 diabetes, chronic kidney disease stage III, peripheral vascular disease, vitamin D deficiency, metabolic syndrome, status post surgical debridement for right lower extremity wound and ankle presented with necrosis admitted for: Right lower extremity diabetic wound infection/cellulitis MRSA negative IV Vanco has been discontinued MRI shows no osteomyelitis wound culture positive for Proteus corynebacterium both of which are sensitive to Levaquin Plastic surgeon Dr. Arrington has been consulted patient is to undergo debridement today she is n.p.o. currently Super morbid obesity BMI 68.5 At risk for hypercarbic respiratory failure if placed in opioids. ARLINE protocol ARLINE On CPAP History of PE On Lovenox to be held prior to surgical debridement Peripheral vascular disease Outpatient referral to vascular surgery Arterial Dopplers if none in the past 6 months. Type 2 diabetes On consistent carbohydrate diet sliding scale VS, I&O, [facility] Vital Signs/I&O Vital Signs Date Time Temp Pulse Resp B/P (MAP) Pulse Ox O2 Delivery O2 Flow Rate FiO2 01/17/21 10:46 16 01/17/21 08:54 70 127/44 01/17/21 06:00 97.7 96 Room Air I&O- Last 24 Hours up to 6 AM 01/17/21 06:00 Intake Total 1250 ml Balance 1250 ml Laboratory Data 24H LABS Laboratory Tests 2 01/16/21 11:28: Bedside Glucose (Misc Panel) 127H 01/16/21 14:43: Vancomycin Level Trough 20.2H 01/16/21 16:34: Bedside Glucose (Misc Panel) 118H 01/16/21 20:33: Bedside Glucose (Misc Panel) 109H 01/17/21 04:18: Immature Granulocyte % (Auto) 1.6, Neutrophils (%) (Auto) 56.8, Lymphocytes (%) (Auto) 29.0, Monocytes (%) (Auto) 8.4H, Eosinophils (%) (Auto) 3.6H, Basophils (%) (Auto) 0.6, Neutrophils # (Auto) 5.1, Lymphocytes # (Auto) 2.6, Monocytes # (Auto) 0.8, Eosinophils # (Auto) 0.3, Basophils # (Auto) 0.1, Nucleated Red Blood Cells % (auto) 0.3H, Anion Gap 7L, Glomerular Filtration Rate 59.0, Calcium Level 8.6, Magnesium Level 2.2, Vancomycin Level Trough 18.5 01/17/21 06:39: CBC/BMP Laboratory Tests 01/17/21 04:18 Microbiology Microbiology 01/15/21 Blood Culture - Preliminary, Resulted No Growth after 48 hours. All Specime... 01/15/21 Blood Culture - Preliminary, Resulted No Growth after 48 hours. All Specime... 01/14/21 Wound Culture - Final, Complete Proteus Mirabilis Klebsiella Oxytoca Corynebacterium Species 01/13/21 Blood Culture - Final, Complete Staphylococcus Hominis Ssp Ruy 01/13/21 Blood Culture - Preliminary, Resulted No Growth after 72 hours. All specime... DELPHINE VELOZ MD Jan 17, 2021 11:16
[2021-01-17] MEDS ORDERED: propofoL 200 MG/20 ML VIAL As Ordered ONE ×2 (13:56→15:58)
[2021-01-17] MEDS ORDERED: LIDOCAINE 2% 100MG/5ML SDV (FOR ANES.) As Ordered ONE (13:56)
[2021-01-17] MEDS ORDERED: fentaNYL 100 MCG/2 ML INJECTION (J3010) As Ordered ONE ×2 (13:57→15:59)
[2021-01-17] MEDS ORDERED: dexameTHASONE 4 MG/ML 1ML VIAL (J1100 PER 1MG) As Ordered ONE (13:57)
[2021-01-17] MEDS ORDERED: ONDANSETRON 4MG/2ML VIAL As Ordered ONE (13:57)
[2021-01-17] MEDS ORDERED: MIDAZOLAM INJ 2MG/2ML VIAL (J2250 PER 1MG) As Ordered ONE (13:57)
[2021-01-17 14:00] VITALS: BP 124/56
[2021-01-17] MEDS ORDERED: GENTAMICIN SULF 80MG/2ML VIAL As Ordered ONE ×3 (14:06→14:54)
[2021-01-17] MEDS ORDERED: METOCLOPRAMIDE INJ 10MG/2ML VIAL (J2765 PER 1) As Ordered ONE (15:44)
[2021-01-17] MEDS ORDERED: LIDOCAINE W/EPINEPHRINE 1% 20ML VIAL As Ordered ONE (15:55)
[2021-01-17] MEDS ORDERED: ACETAMINOPHEN 1000MG 100ML IV BTL (OFIRMEV) (J0131 PER 10MG) As Ordered ONE (16:09)
--- NOTE | 2021-01-17 16:32 | POST-OPPD ---
Postoperative Procedure Note Date Of Procedure: Jan 17, 2021 PREOPERATIVE DIAGNOSIS: Right lower extremity open wound POSTOPERATIVE DIAGNOSIS: same PROCEDURE: Irrigation and debridement right lower extremity wound SURGEON: Dr Orellana WATERSHED ENGINEER: none ANESTHESIA: General ESTIMATED BLOOD LOSS: 20 FINDINGS: Right lower extremity circumferential full thickness wound [id number] cm. SPECIMENS: Debrided tissue right lower extremity, cultures COMPLICATIONS: none REPLACED: none DRAINS: none POSTOPERATIVE CONDITION: stable RAYMUNDO ORELLANA DO Jan 17, 2021 16:32
[2021-01-17] MEDS ORDERED: ONDANSETRON 4MG/2ML VIAL IV PRN (16:40)
[2021-01-17] MEDS ORDERED: LR 1,000 ML IV SCH (16:40)
[2021-01-17] MEDS: fentaNYL 100 MCG/2 ML INJECTION (J3010) IV PRN ×4 (16:48→17:06)
[2021-01-17] MEDS ORDERED: KETOROLAC 30 MG/ML 1ML VIAL IV PRN (17:30)
[2021-01-17 18:00] VITALS: BP 120/58
[2021-01-17] MEDS: LevoFLOXacin 750 MG TABLET PO SCH (18:28)
[2021-01-17 18:30] VITALS: BP 121/61
[2021-01-17] MEDS: BACTRIM 160MG/800MG DS TAB PO SCH (20:40)
[2021-01-17] MEDS: GABAPENTIN 300 MG CAP PO SCH (20:40)
[2021-01-17 22:00] VITALS: BP 116/53
[2021-01-18 02:00] VITALS: BP 110/55
[2021-01-18] MEDS: PERCOCET 5MG/325MG TAB PO PRN ×3 (05:30→18:49)
[2021-01-18 05:32] VITALS: BP 109/55
[2021-01-18 07:42] LABS: BASO % 0.2 % (0.0-1.0); HEMATOCRIT 30.4 % (36.0-47.0); HEMOGLOBIN 8.9 g/dl (12.0-15.5); LYMPH # 1.9 10^3/uL (1.5-5.0); LYMPH % 18.1 % (24.0-44.0); MEAN CORPUSCULAR HEMOGLOBIN 24.9 pg (27.0-33.0); MEAN CORPUSCULAR HGB CONC 29.3 g/dl (32.0-36.5); MEAN CORPUSCULAR VOLUME 84.9 fl (80.0-96.0); MONO # 0.6 10^3/uL (0.0-0.8); MONO % 5.5 % (2.0-8.0); NEUTROPHILS # 7.7 10^3/uL (1.5-8.5); NEUTROPHILS % 74.4 % (36.0-66.0); PLATELET COUNT, AUTOMATED 407 10^3/uL (150-450); RED BLOOD COUNT 3.58 10^6/uL (4.00-5.40); WHITE BLOOD COUNT 10.4 10^3/uL (4.0-10.0)
[2021-01-18 07:56] LABS: BLOOD UREA NITROGEN 15 MG/DL (7-18); CALCIUM LEVEL 8.4 MG/DL (8.5-10.1); CARBON DIOXIDE LEVEL 28 MEQ/L (21-32); CHLORIDE LEVEL 104 MEQ/L (98-107); CREATININE FOR GFR 1.02 MG/DL (0.55-1.30); GLOMERULAR FILTRATION RATE > 60.0 (>51); GLUCOSE, FASTING 128 MG/DL (70-100); MAGNESIUM LEVEL 2.3 MG/DL (1.8-2.4); POTASSIUM SERUM 4.7 MEQ/L (3.5-5.1); SODIUM LEVEL 138 MEQ/L (136-145)
[2021-01-18] MEDS: HumaLOG INSULIN (NovoLOG) PER UNIT SC SCH ×4 (08:30→21:00)
[2021-01-18] MEDS: ENOXAPARIN 150MG/ML SYRINGE (J1650 PER 10MG) SC SCH ×2 (08:46→22:23)
[2021-01-18] MEDS: SPIRONOLACTONE 50 MG TAB PO SCH (08:49)
[2021-01-18] MEDS: ASCORBIC ACID 500 MG TAB PO SCH (08:49)
[2021-01-18] MEDS: FLUTICASONE PROP 0.05% NASAL SPRAY 16 GM (FLONASE) NARES SCH (08:49)
[2021-01-18] MEDS: BACTRIM 160MG/800MG DS TAB PO SCH ×2 (08:49→22:24)
[2021-01-18] MEDS: methocarbamoL 500 MG TAB PO SCH ×2 (08:49→22:23)
[2021-01-18] MEDS: GABAPENTIN 100 MG CAP PO SCH ×2 (08:49→16:19)
[2021-01-18] MEDS: ACETAMINOPHEN TAB 650MG DOSE (2X325MG) PO PRN ×2 (08:50→16:19)
[2021-01-18] MEDS: CARVedilol 6.25 MG TAB PO SCH ×2 (08:50→22:26)
--- NOTE | 2021-01-18 08:53 | ROOPDOC ---
[facility] Report Of Operation Report of Operation Date Of Procedure: Jan 17, 2021 PREOPERATIVE DIAGNOSIS: Right lower extremity open wound POSTOPERATIVE DIAGNOSIS: same PROCEDURE: Irrigation and debridement right lower extremity wound SURGEON: Dr Orellana GLAZE SUPERVISOR: none ANESTHESIA: General ESTIMATED BLOOD LOSS: 20 FINDINGS: Right lower extremity circumferential full thickness wound [id number] cm. SPECIMENS: Debrided tissue right lower extremity, cultures COMPLICATIONS: none REPLACED: none DRAINS: none POSTOPERATIVE CONDITION: stable DESCRIPTION OF PROCEDURE: Procedure: this is a 55-year-old female with chronic venous stasis wounds on right lower extremity. Patient has been following in wound care center. Patient is not well compliant with treatment. She was admitted to the hospital for evaluation of an superficial infection of chronic right lower extremity wound. Patient was placed on bedrest, antibiotics were started. Her edema markedly improved and she is ready for surgical debridement. Patient is scheduled for irrigation and debridement of wounds today. Informed consent was obtained. Risk, benefits, and alternatives were discussed with patient in details, 2 separate discussions were held with the patient and with the presence of her mother. Patient brought into the operating room, placed in supine position, perioperative antibiotics given. Patient is on standing order for anticoagulation for underlying condition which was maintained and not stopped. General anesthesia is induced. She is prepped and draped in the usual sterile fashion. We started our procedure with culturing all the wounds. The wound was remeasured. It is circumferential wound on the right lower extremity measuring 30 cm with an 15 cm length with 0.5 cm depth at the deepest point. The wound has moderate amount of yellow necrosis which was debrided using curettes without any difficulties. Good granulating tissue was discovered underneath. No purulence, or bone exposure was identified. 3 L of normal saline with gentamicin solution was used with power irrigating technique to washout the wound. 1% lidocaine with epinephrine was diluted in 1000 cc of normal saline and soaked gauze was placed on the wound for 5 minutes to control the oozing and allow additional analgesia. Dressings: Xeroform followed by bulky dressing, web roll and Luis Alberto dressing. Patient tolerated procedure well, she was extubated in the operating room without difficulties. She was transferred to recovery room in stable condition. RAYMUNDO ORELLANA DO Jan 18, 2021 08:53
--- NOTE | 2021-01-18 08:54 | IPNPDOC ---
Subjective General Date Seen: Jan 18, 2021 Subject Chief Complaint/History The patient is a 55-year-old female admitted with a reason for visit of Wound Cellulitis After Surgery. Patient status post irrigation and debridement right lower extremities postop day 1. Pain is improving. Patient was tolerating ambulation tolerating regular diet. Current Medications Current Medications Current Medications Medications (Trade) Dose Ordered Sig/Juana Route PRN Reason Start Time Stop Time Status Last Admin Dose Admin Acetaminophen (Tylenol Tab) 650 mg Q4H PRN PO MILD PAIN or TEMP > 101 01/13/21 16:20 01/18/21 08:50 Ascorbic Acid (Vitamin C) 500 mg DAILY PO 01/14/21 09:00 01/18/21 08:49 Carvedilol (COReg) 6.25 mg BID PO 01/13/21 21:00 01/18/21 08:50 Dextrose (Dextrose 50%) 25 ml ASDIRECTED PRN IV SEE LABEL COMMENTS 01/13/21 17:15 Enoxaparin Sodium (Lovenox) 150 mg BID SC 01/15/21 09:00 01/18/21 08:46 Fentanyl Citrate (Sublimaze) 25 mcg Q5MP PRN IV PAIN LEVEL 8-10 01/17/21 16:40 01/17/21 17:06 DC 01/17/21 17:06 Fluticasone Propionate (Flonase 0.05% Nasal [place]) 2 spray DAILY NARES 01/14/21 09:00 01/18/21 08:49 Gabapentin (Neurontin) 100 mg DAILY PO 01/14/21 09:00 01/18/21 08:49 Gabapentin (Neurontin) 100 mg TID PRN PO PAIN LEVEL 1-4 01/14/21 08:10 01/15/21 17:40 Gabapentin (Neurontin) 300 mg QHS PO 01/13/21 21:00 01/17/21 20:40 Glucagon (Glucagon) 1 mg ASDIRECTED PRN SC SEE LABEL COMMENTS 01/13/21 17:15 Glucose (Glucose) 16 GM ASDIRECTED PRN PO SEE LABEL COMMENTS 01/13/21 17:15 Home Med (Home Med List Complete!) ASDIRECTED XX 01/13/21 18:55 01/13/21 18:56 DC Hydroxyzine HCl (Atarax) 25 mg Q6HP PRN PO ANXIETY 01/13/21 22:20 01/15/21 23:42 Insulin Human Lispro (HumaLOG INSULIN) SEE PROTOCOL TABLE AC SC 01/13/21 17:30 01/18/21 08:30 Insulin Human Lispro (HumaLOG INSULIN) SEE PROTOCOL TABLE QHS SC 01/13/21 21:00 Ketorolac Tromethamine (ToRADol) 30 mg ONCE PRN IV PAIN LEVEL 1-6 01/17/21 17:30 01/17/21 17:39 DC 01/17/21 17:39 Lactated Ringer's 1,000 ml @ 100 mls/hr Q10H IV 01/17/21 16:40 01/17/21 18:40 DC 01/17/21 16:46 Levofloxacin (Levaquin) 500 mg DAILY@06 PO 01/17/21 06:00 01/16/21 16:45 DC Levofloxacin (Levaquin) 750 mg Q24H PO 01/16/21 16:00 01/17/21 18:28 Methocarbamol (Robaxin) 500 mg BID PO 01/13/21 21:00 01/18/21 08:49 Miscellaneous (Unresolved Clarification Entry) SEE LABEL COMMENTS DAILY XX 01/13/21 09:00 01/15/21 23:47 DC 01/15/21 09:00 Morphine Sulfate (Morphine Sulfate Inj) 2 mg Q4H PRN IV PAIN LEVEL 7-10 01/14/21 14:55 01/16/21 15:03 Ondansetron HCl (ZOFRAN INJection) 4 mg Q4HP PRN IV NAUSEA OR VOMITING 01/17/21 16:40 01/17/21 18:40 DC Oxycodone/ Acetaminophen (Percocet 5mg/ 325mg Tablet) 1 tab Q6HP PRN PO PAIN LEVEL 3-6 01/13/21 20:15 01/18/21 05:30 Spironolactone (Aldactone) 50 mg DAILY PO 01/14/21 09:00 01/18/21 08:49 Trimethoprim/ Sulfamethoxazole (Bactrim Ds, Septra Ds 160mg/ 800mg) 2 tab BID PO 01/17/21 21:00 01/18/21 08:49 Vancomycin HCl 1000 mg/IV Miscellaneous Supplies 1 each/ Sodium Chloride 270 ml @ 270 mls/hr 0100,0200 IV 01/15/21 01:00 01/15/21 04:30 DC 01/15/21 02:31 Vancomycin HCl 1000 mg/IV Miscellaneous Supplies 1 each/ Sodium Chloride 270 ml @ 270 mls/hr Q12H IV 01/16/21 04:00 01/16/21 15:56 DC 01/16/21 04:59 Vancomycin HCl 1000 mg/IV Miscellaneous Supplies 1 each/ Sodium Chloride 270 ml @ 270 mls/hr Q12H IV 01/16/21 17:00 01/17/21 09:43 DC 01/17/21 05:32 Vancomycin HCl 1000 mg/IV Miscellaneous Supplies 1 each/ Sodium Chloride 270 ml @ 270 mls/hr Q8H IV 01/15/21 08:00 01/15/21 23:50 DC 01/15/21 15:31 Vitamin D (Drisdol) 50,000 units MoFr@0900 PO 01/16/21 09:00 01/16/21 08:14 Allergies Coded Allergies: TAPE (Verified Allergy, Mild, rash, 01/13/21) latex (Verified Allergy, Unknown, 01/13/21) lactose (Verified Adverse Reaction, Mild, INTOLERANCE, 01/13/21) Objective Physical Examination Examination GENERAL APPEARANCE:Patient seen, laying in bed, awake, alert, and oriented. Comfortable, in no acute distress. SKIN: Warm and moist. LUNGS: Clear to auscultation bilaterally. No wheezing appreciated. HEART: No chest wall abnormalities. Regular rate and rhythm with no murmurs appreciated. ABDOMEN: Abdomen is soft, non-tender, non-distended. EXTREMITIES: No edema identified. No calf tenderness. Right lower extremity with dressing in place. No oozing. Vital Signs Vital Signs Date Time Temp Pulse Resp B/P (MAP) Pulse Ox O2 Delivery O2 Flow Rate FiO2 01/18/21 08:50 80 121/59 01/18/21 06:17 18 01/18/21 05:32 98.3 95 Room Air I&Os I&O- Last 24 Hours up to 6 AM 01/18/21 06:00 Intake Total 1285 ml Output Total 20 ml Balance 1265 ml Laboratory Data Labs 24H Laboratory Tests 2 01/17/21 11:29: Bedside Glucose (Misc Panel) 141H 01/17/21 20:56: Bedside Glucose (Misc Panel) 252H 01/18/21 07:03: Immature Granulocyte % (Auto) 1.8, Neutrophils (%) (Auto) 74.4H, Lymphocytes (%) (Auto) 18.1L, Monocytes (%) (Auto) 5.5, Eosinophils (%) (Auto) 0.0, Basophils (%) (Auto) 0.2, Neutrophils # (Auto) 7.7, Lymphocytes # (Auto) 1.9, Monocytes # (Auto) 0.6, Eosinophils # (Auto) 0.0, Basophils # (Auto) 0.0, Nucleated Red Blood Cells % (auto) 0.2H, Anion Gap 6L, Glomerular Filtration Rate > 60.0, Calcium Level 8.4L, Magnesium Level 2.3 CBC/BMP Laboratory Tests 01/18/21 07:03 Microbiology Microbiology 01/17/21 Gram Stain, Received Pending 01/17/21 Wound Culture, Received Pending 01/17/21 Anaerobic Culture, Received Pending 01/17/21 Gram Stain, Received Pending 01/17/21 Surgical Biopsy Culture, Received Pending 01/17/21 Anaerobic Culture, Received Pending 01/15/21 Blood Culture - Preliminary, Resulted No Growth after 48 hours. All Specime... 01/15/21 Blood Culture - Preliminary, Resulted No Growth after 48 hours. All Specime... 01/14/21 Wound Culture - Final, Complete Proteus Mirabilis Klebsiella Oxytoca Corynebacterium Species 01/13/21 Blood Culture - Final, Complete Staphylococcus Hominis Ssp Ruy 01/13/21 Blood Culture - Preliminary, Resulted No Growth after 72 hours. All specime... Impression 55-year-old female with chronic venous stasis wound right lower extremity. Postop day 1 status post irrigation and debridement right lower extremity wound. Keep leg elevated. Dressing could be changed tomorrow by nursing with single-layer Hydrofera Blue, bulky dressing and Luis Alberto dressing. Patient will be following up with wound care upon discharge. Wound care provider was contacted and is aware of the progress. Patient instructed for leg elevation throughout the day and minimize the amount of walking she does for now. Antibiotics to be adjusted according to cultures. Home health care is very highly recommended. Dressings for home care: Hydrofera Blue, bulky dressing, Kerlix, Luis Alberto wrap from foot to the knee every other day. Plan / VTE VTE Prophylaxis Ordered?: Yes RAYMUNDO ORELLANA DO Jan 18, 2021 08:53
[2021-01-18 10:00] VITALS: BP 124/58
[2021-01-18] MEDS ORDERED: LEVO750T13 PO (10:03)
[2021-01-18] MEDS ORDERED: BACI1CAP PO (10:04)
--- NOTE | 2021-01-18 12:02 | IPNPDOC ---
Date Seen The patient was seen on 01/18/21. Progress Note SUBJECTIVE: No issues overnight pain is well controlled patient says that she is unable to straighten up her right ankle and was instructed to straighten it up and elevate status post debridement No fever chills overnight OBJECTIVE PHYSICAL EXAMINATION: VITAL SIGNS: Please see below. GENERAL: Morbidly obese no distress awake alert oriented to person place and time anicteric no pallor HEENT: No JVD moist mucous membranes no thyromegaly facial hair CARDIOVASCULAR: S1-S2 regular rate rhythm RESPIRATORY: Diminished clear to auscultation no wheezing or rales ABDOMINAL: Obese soft nontender nondistended positive bowel sounds in 4 quadrants EXTREMITIES: Right lower extremity bandaged skin warm dry well perfused pink in color LABORATORY DATA, IMAGING STUDIES, MICROBIOLOGY: Please see below. ASSESSMENT AND PLAN: 55-year-old with history of super morbid obesity BMI 68.5, obstructive sleep apnea, PE on chronic anticoagulation, hypertension, type 2 diabetes, chronic kidney disease stage III, peripheral vascular disease, vitamin D deficiency, metabolic syndrome, status post surgical debridement for right lower extremity wound and ankle presented with necrosis admitted for: Right lower extremity diabetic wound infection/cellulitis MRSA negative IV Vanco has been discontinued MRI shows no osteomyelitis wound culture positive for Proteus corynebacterium both of which are sensitive to Levaquin Plastic surgeon Dr. Arrington consulted status post debridement of the right ankle 01/17/2021 On Levaquin and Bactrim May resume prior dressing and wound care No plans for wound VAC May discharge in 2 days per plastic surgery potentially Home care referral for wound care Outpatient follow-up at the wound care Center with Dr. Love Super morbid obesity BMI 68.5 At risk for hypercarbic respiratory failure if placed in opioids. ARLINE protocol ARLINE On CPAP History of PE Resumed on oral anticoagulant Peripheral vascular disease Outpatient referral to vascular surgery Arterial Dopplers if none in the past 6 months. Type 2 diabetes On consistent carbohydrate diet sliding scale Disposition DC in the morning with home care for wound care services VS, I&O, 24H, [facility] Vital Signs/I&O Vital Signs Date Time Temp Pulse Resp B/P (MAP) Pulse Ox O2 Delivery O2 Flow Rate FiO2 01/18/21 10:00 98.7 89 20 124/58 (80) 93 Room Air I&O- Last 24 Hours up to 6 AM 01/18/21 06:00 Intake Total 1285 ml Output Total 20 ml Balance 1265 ml Laboratory Data 24H LABS Laboratory Tests 2 01/17/21 20:56: Bedside Glucose (Misc Panel) 252H 01/18/21 07:03: Immature Granulocyte % (Auto) 1.8, Neutrophils (%) (Auto) 74.4H, Lymphocytes (%) (Auto) 18.1L, Monocytes (%) (Auto) 5.5, Eosinophils (%) (Auto) 0.0, Basophils (%) (Auto) 0.2, Neutrophils # (Auto) 7.7, Lymphocytes # (Auto) 1.9, Monocytes # (Auto) 0.6, Eosinophils # (Auto) 0.0, Basophils # (Auto) 0.0, Nucleated Red Blood Cells % (auto) 0.2H, Anion Gap 6L, Glomerular Filtration Rate > 60.0, Calcium Level 8.4L, Magnesium Level 2.3 CBC/BMP Laboratory Tests 01/18/21 07:03 Microbiology Microbiology 01/17/21 Gram Stain - Final, Resulted 01/17/21 Wound Culture, Resulted Pending 01/17/21 Anaerobic Culture, Resulted Pending 01/17/21 Gram Stain - Final, Resulted 01/17/21 Surgical Biopsy Culture, Resulted Pending 01/17/21 Anaerobic Culture, Resulted Pending 01/15/21 Blood Culture - Preliminary, Resulted No Growth after 72 hours. All specime... 01/15/21 Blood Culture - Preliminary, Resulted No Growth after 72 hours. All specime... 01/14/21 Wound Culture - Final, Complete Proteus Mirabilis Klebsiella Oxytoca Corynebacterium Species 01/13/21 Blood Culture - Final, Complete Staphylococcus Hominis Ssp Ruy 01/13/21 Blood Culture - Preliminary, Resulted No Growth after 72 hours. All specime... DELPHINE VELOZ MD Jan 18, 2021 12:02
[2021-01-18 14:30] VITALS: BP 111/56
[2021-01-18] MEDS: LevoFLOXacin 750 MG TABLET PO SCH (16:19)
[2021-01-18] MEDS ORDERED: WARFARIN SOD 5MG TAB PO SCH (17:00)
[2021-01-18 22:00] VITALS: BP 114/56
[2021-01-18] MEDS: GABAPENTIN 300 MG CAP PO SCH (22:27)
[2021-01-19] MEDS: PERCOCET 5MG/325MG TAB PO PRN ×2 (01:08→06:42)
[2021-01-19 06:00] VITALS: BP 140/60
[2021-01-19] MEDS: HumaLOG INSULIN (NovoLOG) PER UNIT SC SCH ×2 (07:30→12:32)
[2021-01-19 08:20] LABS: BASO % 0.4 % (0.0-1.0); EOS # 0.1 10^3/uL (0.0-0.5); EOS % 1.2 % (0.0-3.0); HEMATOCRIT 31.1 % (36.0-47.0); HEMOGLOBIN 8.9 g/dl (12.0-15.5); LYMPH # 2.6 10^3/uL (1.5-5.0); LYMPH % 26.8 % (24.0-44.0); MEAN CORPUSCULAR HEMOGLOBIN 24.7 pg (27.0-33.0); MEAN CORPUSCULAR HGB CONC 28.6 g/dl (32.0-36.5); MEAN CORPUSCULAR VOLUME 86.4 fl (80.0-96.0); MONO # 0.8 10^3/uL (0.0-0.8); MONO % 8.8 % (2.0-8.0); NEUTROPHILS # 5.8 10^3/uL (1.5-8.5); NEUTROPHILS % 60.3 % (36.0-66.0); PLATELET COUNT, AUTOMATED 435 10^3/uL (150-450); WHITE BLOOD COUNT 9.6 10^3/uL (4.0-10.0)
[2021-01-19 08:42] LABS: CALCIUM LEVEL 9.6 MG/DL (8.5-10.1); CREATININE FOR GFR 1.21 MG/DL (0.55-1.30); GLOMERULAR FILTRATION RATE 49.6 (>51); MAGNESIUM LEVEL 2.4 MG/DL (1.8-2.4)
[2021-01-19] MEDS ORDERED: PERCOCET PO (10:20)
[2021-01-19] MEDS: ENOXAPARIN 150MG/ML SYRINGE (J1650 PER 10MG) SC SCH (10:44)
[2021-01-19] MEDS: GABAPENTIN 100 MG CAP PO SCH (10:45)
[2021-01-19] MEDS ORDERED: MORPHINE 2 MG/ML 1ML VIAL (J2270) IV ONE (10:45)
--- NOTE | 2021-01-19 10:45 | DS.PDOC ---
Discharge Summary General Date of Admission Jan 13, 2021 at 16:16 Date of Discharge 01/19/21 home care referral Discharge Summary DISCHARGE DIAGNOSES: Right lower extremity diabetic wound infection/cellulitis status post debridement Super morbid obesity BMI of 68.5 Obstructive sleep apnea Pulmonary embolism on chronic warfarin Hypertension Diabetes Metabolic syndrome Chronic kidney disease stage III DISCHARGE MEDICATIONS: See below DISCHARGE INSTRUCTIONS: Dr. Love wound care center appointment within 5 days primary care appointment within 7 days wound care per Dr. Love HOSPITAL COURSE: 55-year-old with history of super morbid obesity BMI 68.5, obstructive sleep apnea, PE on chronic anticoagulation, hypertension, type 2 diabetes, chronic kidney disease stage III, peripheral vascular disease, vitamin D deficiency, metabolic syndrome, status post surgical debridement for right lower extremity wound and ankle presented with necrosis admitted for: Right lower extremity diabetic wound infection/cellulitis MRSA negative IV Vanco has been discontinued MRI shows no osteomyelitis wound culture positive for Proteus corynebacterium both of which are sensitive to Levaquin Plastic surgeon Dr. Arrington consulted status post debridement of the right ankle 01/17/2021 On Levaquin and Bactrim May resume prior dressing and wound care No plans for wound VAC Home care referral for wound care Outpatient follow-up at the wound care Center with Dr. Love Super morbid obesity BMI 68.5 At risk for hypercarbic respiratory failure if placed in opioids. ARLINE protocol ARLINE On CPAP History of PE Resumed on oral anticoagulant Bridge with Lovenox along with warfarin during the hospital admission Peripheral vascular disease Outpatient referral to vascular surgery Arterial Dopplers if none in the past 6 months. Type 2 diabetes On consistent carbohydrate diet sliding scale DISCHARGE PHYSICAL EXAMINATION: VITAL SIGNS: Please see below. GENERAL: Morbidly obese no distress awake alert oriented to person place and time anicteric no pallor HEENT: No JVD moist mucous membranes no thyromegaly facial hair CARDIOVASCULAR: S1-S2 regular rate rhythm RESPIRATORY: Diminished clear to auscultation no wheezing or rales ABDOMINAL: Obese soft nontender nondistended positive bowel sounds in 4 danny drants EXTREMITIES: Right lower extremity bandaged skin warm dry well perfused pink in color LABORATORY DATA, IMAGING STUDIES, MICROBIOLOGY: Please see below. TIME SPENT ON DISCHARGE: 30 MINUTES Vital Signs/I&Os Vital Signs Date Time Temp Pulse Resp B/P (MAP) Pulse Ox O2 Delivery O2 Flow Rate FiO2 01/19/21 07:12 18 01/19/21 06:42 Room Air 01/19/21 06:00 97.9 77 140/60 (86) 94 I&O- Last 24 Hours up to 6 AM 01/19/21 06:00 Intake Total 1820 ml Output Total 1 ml Balance 1819 ml Laboratory Data Labs 24H Laboratory Tests 2 01/18/21 12:03: Bedside Glucose (Misc Panel) 187H 01/18/21 16:49: Bedside Glucose (Misc Panel) 149H 01/18/21 22:23: Bedside Glucose (Misc Panel) 129H 01/19/21 07:44: Immature Granulocyte % (Auto) 2.5, Neutrophils (%) (Auto) 60.3, Lymphocytes (%) (Auto) 26.8, Monocytes (%) (Auto) 8.8H, Eosinophils (%) (Auto) 1.2, Basophils (%) (Auto) 0.4, Neutrophils # (Auto) 5.8, Lymphocytes # (Auto) 2.6, Monocytes # (Auto) 0.8, Eosinophils # (Auto) 0.1, Basophils # (Auto) 0.0, Nucleated Red Blood Cells % (auto) 0.2H, Anion Gap 3L, Glomerular Filtration Rate 49.6L, Calcium Level 9.6, Magnesium Level 2.4 01/19/21 08:14: Bedside Glucose (Misc Panel) 113H CBC/BMP Laboratory Tests 01/19/21 07:44 FSBS Laboratory Tests Test 01/18/21 12:03 01/18/21 16:49 01/18/21 22:23 01/19/21 08:14 Range/Units Bedside Glucose (Misc Panel) 187 149 129 113 70-105 MG/DL Microbiology Microbiology 01/17/21 Gram Stain - Final, Resulted 01/17/21 Wound Culture, Resulted Pending 01/17/21 Anaerobic Culture - Final, Resulted 01/17/21 Gram Stain - Final, Resulted 01/17/21 Surgical Biopsy Culture, Resulted Pending 01/17/21 Anaerobic Culture - Final, Resulted 01/15/21 Blood Culture - Preliminary, Resulted No Growth after 72 hours. All specime... 01/15/21 Blood Culture - Preliminary, Resulted No Growth after 72 hours. All specime... 01/14/21 Wound Culture - Final, Complete Proteus Mirabilis Klebsiella Oxytoca Corynebacterium Species 01/13/21 Blood Culture - Final, Complete Staphylococcus Hominis Ssp Ruy 01/13/21 Blood Culture - Final, Complete NO GROWTH AFTER 5 DAYS Discharge Medications Scheduled Acetaminophen (Tylenol Arthritis) 650 Mg Tablet.er, 650 MG PO BID, (Reported) Ascorbic Acid (Vitamin C) 500 Mg Tablet, 500 MG PO DAILY, (Reported) Bacillus Coagulans (Bacid with Lactospore) 1 Each Capsule, 1 CAP PO WM Carvedilol (Carvedilol) 6.25 Mg Tablet, 6.25 MG PO BID, (Reported) Ergocalciferol (Vitamin D2) (Vitamin D2) 50,000 Units Cap, 50,000 UNIT PO 2XW, (Reported) NO SPECIFIC DAYS Fluticasone Propionate (Fluticasone Propionate) 16 Gm Ajo.susp, 2 SPRAYS NARES DAILY, (Reported) Gabapentin (Gabapentin) 100 Mg Capsule, 100 MG PO DAILY, (Reported) Gabapentin (Gabapentin) 300 Mg Capsule, 300 MG PO QHS, (Reported) Levofloxacin (Levofloxacin) 750 Mg Tablet, 750 MG PO Q24H Methocarbamol (Methocarbamol) 500 Mg Tablet, 500 MG PO BID, (Reported) Spironolactone (Spironolactone) 50 Mg Tab, 50 MG PO DAILY, (Reported) Warfarin Sodium (Warfarin Sodium) 5 Mg Tablet, 5 MG PO QHS, (Reported) Warfarin Sodium (Warfarin Sodium) 2.5 Mg Tablet, 2.5 MG PO 1XWK, (Reported) HS ON FRIDAYS FOR TOTAL OF 7.5MG Scheduled PRN Gabapentin (Gabapentin) 100 Mg Capsule, 100 MG PO TID PRN for PAIN LEVEL 1-4, (Reported) Naproxen Sodium (Aleve) 220 Mg Tablet, 220 MG PO BID PRN for MILD BREAKTHROUGH PAIN, (Reported) Oxycodone/Acetaminophen (Oxycodone-Acetaminophen 5-325) 1 Each Tablet, 1 TAB PO Q6HP PRN for PAIN LEVEL 3-6 Allergies Coded Allergies: TAPE (Verified Allergy, Mild, rash, 01/13/21) latex (Verified Allergy, Unknown, 01/13/21) lactose (Verified Adverse Reaction, Mild, INTOLERANCE, 01/13/21) DELPHINE VELOZ MD Jan 19, 2021 10:45
[2021-01-19] MEDS: BACTRIM 160MG/800MG DS TAB PO SCH (10:47)
[2021-01-19] MEDS: methocarbamoL 500 MG TAB PO SCH (10:47)
[2021-01-19] MEDS: SPIRONOLACTONE 50 MG TAB PO SCH (10:47)
[2021-01-19] MEDS: ASCORBIC ACID 500 MG TAB PO SCH (10:47)
[2021-01-19 10:48] VITALS: BP 139/61
[2021-01-19] MEDS: CARVedilol 6.25 MG TAB PO SCH (10:48)
[2021-01-19 11:08] LABS: INR 1.26; PROTHROMBIN TIME 16.2 SECONDS (12.7-14.5)
[2021-01-19] MEDS: FLUTICASONE PROP 0.05% NASAL SPRAY 16 GM (FLONASE) NARES SCH (11:13)
[2021-01-19] MEDS ORDERED: PERCOCET 5MG/325MG TAB PO ONE (11:45)
[2021-01-19 14:00] VITALS: BP 116/67
== END 2021-01-19 16:50 | disposition home health service (06) | DRG 380 ==
LOC: M ED 14:36 → M ED INP 16:16 → ENRESERV 17:28 → M MS5PR 17:55
PROVIDERS: ADMIT Internal Medicine; ATTEND General Practice
PROC: 0HDKXZZ Extraction of Right Lower Leg Skin, External Approach (ICD-10-PCS; principal; 2021-01-17 15:00)
DX: E11.622 Type 2 diabetes mellitus with other skin ulcer (principal); E11.22 Type 2 diabetes mellitus with diabetic chronic kidney disease; L97.918 Non-pressure chronic ulcer of unspecified part of right lower leg with other specified severity; E11.51 Type 2 diabetes mellitus with diabetic peripheral angiopathy without gangrene; E88.81 Metabolic syndrome and other insulin resistance; Z68.44 Body mass index [BMI] 60.0-69.9, adult; E66.01 Morbid (severe) obesity due to excess calories; N18.30 Chronic kidney disease, stage 3 unspecified; K76.0 Fatty (change of) liver, not elsewhere classified; E11.628 Type 2 diabetes mellitus with other skin complications; I87.2 Venous insufficiency (chronic) (peripheral); L03.115 Cellulitis of right lower limb; Z90.49 Acquired absence of other specified parts of digestive tract; L68.0 Hirsutism; M16.11 Unilateral primary osteoarthritis, right hip; E28.2 Polycystic ovarian syndrome; B96.4 Proteus (mirabilis) (morganii) as the cause of diseases classified elsewhere; E73.9 Lactose intolerance, unspecified; G47.33 Obstructive sleep apnea (adult) (pediatric); I12.9 Hypertensive chronic kidney disease with stage 1 through stage 4 chronic kidney disease, or unspecified chronic kidney disease; E55.9 Vitamin D deficiency, unspecified; M51.36 Other intervertebral disc degeneration, lumbar region; Z86.711 Personal history of pulmonary embolism; Z79.899 Other long term (current) drug therapy; Z79.01 Long term (current) use of anticoagulants; Z91.040 Latex allergy status; Z91.048 Other nonmedicinal substance allergy status

== ENCOUNTER → 2021-01-13 | Outpatient (CLI) | payer BC ==
[~2021-01-13] MED LIST changes: +ACET650T61 PO; +ALEV220T22 PO; +C 50TAB PO; +CARV6.25 PO; +ERGO500029 PO; +FLUTISP NARES; +GABA-1171 PO; +GABA-282 PO; -ISOVUE-370 76% 100ML VIAL As Ordered ONE; +METH-1164 PO; +WARF-18 PO; +WARF-23 PO
[2021-01-13 13:30] LABS: INR 3.42; PROTHROMBIN TIME 34.8 SECONDS (12.7-14.5)
== END ==
LOC: M PLALAB 11:32
PROVIDERS: ATTEND Nurse Practitioner Family
DX: Z51.81 Encounter for therapeutic drug level monitoring (principal)

== ENCOUNTER → 2021-02-27 | Outpatient (CLI) | payer BC ==
[~2021-02-27] MED LIST changes: +ACET650T61 PO; +ALEV220T22 PO; +BACI1CAP PO; +C 50TAB PO; +CARV6.25 PO; +ERGO500029 PO; +FLUTISP NARES; +GABA-1171 PO; +GABA-282 PO; +LEVO750T13 PO; +METH-1164 PO; +PERCOCET PO; +WARF-18 PO; +WARF-23 PO
[2021-02-27 10:37] LABS: BASO # 0.1 10^3/uL (0.0-0.2); BASO % 0.5 % (0.0-1.0); EOS # 0.2 10^3/uL (0.0-0.5); HEMATOCRIT 36.6 % (36.0-47.0); HEMOGLOBIN 10.6 g/dl (12.0-15.5); LYMPH # 1.9 10^3/uL (1.5-5.0); LYMPH % 18.6 % (24.0-44.0); MEAN CORPUSCULAR HEMOGLOBIN 24.1 pg (27.0-33.0); MEAN CORPUSCULAR VOLUME 83.4 fl (80.0-96.0); MONO # 1.1 10^3/uL (0.0-0.8); MONO % 10.9 % (2.0-8.0); NEUTROPHILS # 6.7 10^3/uL (1.5-8.5); NEUTROPHILS % 67.5 % (36.0-66.0); PLATELET COUNT, AUTOMATED 465 10^3/uL (150-450); RED BLOOD COUNT 4.39 10^6/uL (4.00-5.40); WHITE BLOOD COUNT 9.9 10^3/uL (4.0-10.0)
[2021-02-27 10:48] LABS: INR 2.2; PROTHROMBIN TIME 24.8 SECONDS (12.7-14.5)
[2021-02-27 10:49] LABS: PARTIAL THROMBOPLASTIN TIME 59.6 SECONDS (25.9-37.0)
[2021-02-27 10:58] LABS: ALBUMIN 2.9 GM/DL (3.2-5.2); BILIRUBIN,TOTAL 0.4 MG/DL (0.2-1.0); CALCIUM LEVEL 8.8 MG/DL (8.5-10.1); CREATININE FOR GFR 1.1 MG/DL (0.55-1.30); GLOMERULAR FILTRATION RATE 55.3 (>51); PERCENT SATURATION 10.3 % (13.2-45.0); POTASSIUM SERUM 4.4 MEQ/L (3.5-5.1); TOTAL PROTEIN 6.6 GM/DL (6.4-8.2)
== END ==
LOC: M PLALAB 08:32
PROVIDERS: ATTEND Family Medicine
DX: D50.9 Iron deficiency anemia, unspecified (principal)

== ENCOUNTER 2021-02-28 15:09 | Emergency (ER) | payer BC ==
[~2021-02-28] VITALS: Ht 157.5 cm; Wt 160.0 kg
[2021-02-28] MEDS ORDERED: PERCOCET 5MG/325MG TAB PO ONE (21:15)
[2021-02-28 22:08] LABS: BASO # 0.1 10^3/uL (0.0-0.2); BASO % 0.5 % (0.0-1.0); EOS # 0.3 10^3/uL (0.0-0.5); EOS % 2.6 % (0.0-3.0); HEMATOCRIT 35.9 % (36.0-47.0); HEMOGLOBIN 10.7 g/dl (12.0-15.5); LYMPH # 2.4 10^3/uL (1.5-5.0); MEAN CORPUSCULAR HEMOGLOBIN 24.1 pg (27.0-33.0); MEAN CORPUSCULAR HGB CONC 29.8 g/dl (32.0-36.5); MEAN CORPUSCULAR VOLUME 80.9 fl (80.0-96.0); MONO # 0.9 10^3/uL (0.0-0.8); MONO % 9.2 % (2.0-8.0); NEUTROPHILS % 62.3 % (36.0-66.0); PLATELET COUNT, AUTOMATED 473 10^3/uL (150-450); RED BLOOD COUNT 4.44 10^6/uL (4.00-5.40); WHITE BLOOD COUNT 9.6 10^3/uL (4.0-10.0)
[2021-02-28 22:21] LABS: INR 2.23
[2021-02-28 22:22] LABS: PARTIAL THROMBOPLASTIN TIME 58.7 SECONDS (25.9-37.0)
[2021-02-28 22:31] LABS: ALBUMIN 3.1 GM/DL (3.2-5.2); ALT/SGPT 23 U/L (12-78); BILIRUBIN,DIRECT < 0.1 MG/DL (0.0-0.2); BILIRUBIN,TOTAL 0.3 MG/DL (0.2-1.0); BLOOD UREA NITROGEN 24 MG/DL (7-18); C REACTIVE PROTEIN QUANTITATIV 8.26 MG/DL (0.00-0.30); CALCIUM LEVEL 9.2 MG/DL (8.5-10.1); CARBON DIOXIDE LEVEL 30 MEQ/L (21-32); CHLORIDE LEVEL 104 MEQ/L (98-107); CREATININE FOR GFR 1.12 MG/DL (0.55-1.30); GLOMERULAR FILTRATION RATE 54.2 (>51); GLUCOSE, FASTING 136 MG/DL (70-100); LIPASE 170 U/L (73-393); POTASSIUM SERUM 4.7 MEQ/L (3.5-5.1); SODIUM LEVEL 141 MEQ/L (136-145); TOTAL PROTEIN 7.3 GM/DL (6.4-8.2)
--- NOTE | 2021-02-28 23:08 | REPVR ---
PROCEDURE INFORMATION: Exam: US Duplex Right Lower Extremity Veins, Limited Exam date and time: 02/28/2021 10:07 PM Age: 55 years old Clinical indication: Pain; Edema, localized; Lower extremity, right; Leg, upper and leg, lower; Patient HX: PT on thinners, warfarin; Additional info: Swollen painful leg TECHNIQUE: Imaging protocol: Real-time Duplex ultrasound of the Right Lower Extremity with 2-D gli scale, color Doppler flow and spectral waveform analysis with image documentation. Limited exam was focused on the right lower extremity veins. COMPARISON: US Duplex, Ext LOWER veins, bilat BILATERAL 11/11/2020 11:03 AM FINDINGS: Right deep veins: Grossly unremarkable with limited visualization. The common femoral and femoral veins appear to be patent without thrombus on color flow only. Doppler waveforms appear normal. No augmentation is performed due to patient's limited ability to tolerate the procedure. Right superficial veins: The saphenous veins are not seen. Soft tissues: Unremarkable. IMPRESSION: Negative limited right lower extremity venous exam without evidence of deep venous thrombosis in the right common femoral or femoral veins. Imaging cannot be performed below the knee. Electronically signed by: Manuel Cadet On 02/28/2021 23:07:58 PM
[2021-02-28] MEDS ORDERED: PROPARACAINE 0.5% OPHTH SOL 15ML OU ONE (23:45)
[2021-03-01 00:13] VITALS: BP 134/71
== END 2021-03-01 00:15 | disposition home or self-care (01) ==
LOC: M ED 15:09
DX: M79.604 Pain in right leg (principal); R79.89 Other specified abnormal findings of blood chemistry; E11.9 Type 2 diabetes mellitus without complications; I12.9 Hypertensive chronic kidney disease with stage 1 through stage 4 chronic kidney disease, or unspecified chronic kidney disease; N18.30 Chronic kidney disease, stage 3 unspecified; E03.9 Hypothyroidism, unspecified; E66.9 Obesity, unspecified; Z91.018 Allergy to other foods; Z91.040 Latex allergy status; Z91.048 Other nonmedicinal substance allergy status; Z79.899 Other long term (current) drug therapy; Z79.01 Long term (current) use of anticoagulants

== ENCOUNTER → 2021-03-21 | Outpatient (CLI) | payer BC ==
[2021-03-21 13:55] LABS: BASO % 0.3 % (0.0-1.0); EOS # 0.2 10^3/uL (0.0-0.5); EOS % 2.5 % (0.0-3.0); HEMATOCRIT 37.4 % (36.0-47.0); LYMPH # 1.9 10^3/uL (1.5-5.0); LYMPH % 19.9 % (24.0-44.0); MEAN CORPUSCULAR HEMOGLOBIN 23.8 pg (27.0-33.0); MEAN CORPUSCULAR HGB CONC 29.4 g/dl (32.0-36.5); MONO # 0.9 10^3/uL (0.0-0.8); MONO % 9.6 % (2.0-8.0); NEUTROPHILS # 6.4 10^3/uL (1.5-8.5); NEUTROPHILS % 67.2 % (36.0-66.0); PLATELET COUNT, AUTOMATED 431 10^3/uL (150-450); RED BLOOD COUNT 4.62 10^6/uL (4.00-5.40); WHITE BLOOD COUNT 9.5 10^3/uL (4.0-10.0)
[2021-03-21 14:07] LABS: PROTHROMBIN TIME 31.4 SECONDS (12.7-14.5)
== END ==
LOC: M PLALAB 11:03
PROVIDERS: ATTEND Family Medicine
DX: D50.9 Iron deficiency anemia, unspecified (principal)

== ENCOUNTER → 2021-07-14 | Outpatient (CLI) | payer BC ==
[2021-07-14 13:17] LABS: BASO # 0.1 10^3/uL (0.0-0.2); BASO % 0.7 % (0.0-1.0); EOS # 0.1 10^3/uL (0.0-0.5); EOS % 2.1 % (0.0-3.0); HEMATOCRIT 38.7 % (36.0-47.0); HEMOGLOBIN 11.4 g/dl (12.0-15.5); LYMPH # 1.8 10^3/uL (1.5-5.0); MEAN CORPUSCULAR HEMOGLOBIN 24.4 pg (27.0-33.0); MEAN CORPUSCULAR HGB CONC 29.5 g/dl (32.0-36.5); MEAN CORPUSCULAR VOLUME 82.7 fl (80.0-96.0); MONO # 0.6 10^3/uL (0.0-0.8); MONO % 8.5 % (2.0-8.0); NEUTROPHILS # 4.2 10^3/uL (1.5-8.5); NEUTROPHILS % 62.3 % (36.0-66.0); PLATELET COUNT, AUTOMATED 359 10^3/uL (150-450); RED BLOOD COUNT 4.68 10^6/uL (4.00-5.40); WHITE BLOOD COUNT 6.8 10^3/uL (4.0-10.0)
[2021-07-14 13:26] LABS: INR 2.08; PROTHROMBIN TIME 23.8 SECONDS (12.7-14.5)
[2021-07-14 13:36] LABS: HEMOGLOBIN A1c 6.3 %
[2021-07-14 14:00] LABS: CALCIUM LEVEL 9.4 MG/DL (8.5-10.1); CREATININE FOR GFR 1.16 MG/DL (0.55-1.30); GLOMERULAR FILTRATION RATE 51.8 (>51); PTH INTACT 51.1 PG/ML (18.5-88.0)
[2021-07-14 14:01] LABS: ALBUMIN 3.4 GM/DL (3.2-5.2); BILIRUBIN,TOTAL 0.3 MG/DL (0.2-1.0); CHOLESTEROL RISK RATIO 3.958 (<5); FREE T4 1.18 NG/DL (0.76-1.46); THYROID STIMULATING HORMONE 3.49 uIU/ML (0.358-3.740); TOTAL 25(OH) VITAMIN D 106.1 NG/ML (30.0-100.0); TOTAL PROTEIN 7.5 GM/DL (6.4-8.2)
== END ==
LOC: M PLALAB 10:10
PROVIDERS: ATTEND Family Medicine
DX: D50.9 Iron deficiency anemia, unspecified (principal); E11.9 Type 2 diabetes mellitus without complications; I12.9 Hypertensive chronic kidney disease with stage 1 through stage 4 chronic kidney disease, or unspecified chronic kidney disease; N18.30 Chronic kidney disease, stage 3 unspecified; Z51.81 Encounter for therapeutic drug level monitoring; E78.5 Hyperlipidemia, unspecified; E03.9 Hypothyroidism, unspecified

== ENCOUNTER → 2021-12-14 | Outpatient (CLI) | payer BC ==
[2021-12-14 13:27] LABS: BASO % 0.5 % (0.0-1.0); EOS # 0.2 10^3/uL (0.0-0.5); EOS % 2.4 % (0.0-3.0); HEMATOCRIT 41.8 % (36.0-47.0); HEMOGLOBIN 12.4 g/dl (12.0-15.5); LYMPH # 1.8 10^3/uL (1.5-5.0); LYMPH % 22.5 % (24.0-44.0); MEAN CORPUSCULAR HEMOGLOBIN 25.8 pg (27.0-33.0); MEAN CORPUSCULAR HGB CONC 29.7 g/dl (32.0-36.5); MEAN CORPUSCULAR VOLUME 86.9 fl (80.0-96.0); MONO # 0.8 10^3/uL (0.0-0.8); MONO % 10.7 % (2.0-8.0); NEUTROPHILS % 63.6 % (36.0-66.0); PLATELET COUNT, AUTOMATED 327 10^3/uL (150-450); RED BLOOD COUNT 4.81 10^6/uL (4.00-5.40); WHITE BLOOD COUNT 7.9 10^3/uL (4.0-10.0)
[2021-12-14 13:37] LABS: INR 2.46
[2021-12-14 14:19] LABS: HEMOGLOBIN A1c 5.7 %
[2021-12-14 14:34] LABS: ALBUMIN 3.8 GM/DL (3.2-5.2); BILIRUBIN,TOTAL 0.4 MG/DL (0.2-1.0); CALCIUM LEVEL 9.8 MG/DL (8.5-10.1); CREATININE FOR GFR 1.16 MG/DL (0.55-1.30); GLOMERULAR FILTRATION RATE 51.8 (>51); POTASSIUM SERUM 4.8 MEQ/L (3.5-5.1); TOTAL PROTEIN 7.6 GM/DL (6.4-8.2)
== END ==
LOC: M PLALAB 11:16
PROVIDERS: ATTEND Family Medicine
DX: D50.9 Iron deficiency anemia, unspecified (principal); E11.9 Type 2 diabetes mellitus without complications; I87.311 Chronic venous hypertension (idiopathic) with ulcer of right lower extremity

== ENCOUNTER → 2022-02-08 | Outpatient (CLI) | payer BC ==
[~2022-02-08] MED LIST changes: +LEVO1TAB40 PO; -LEVO750T13 PO
== END ==
LOC: M SOG 09:05
PROVIDERS: ATTEND Orthopaedic Surgery
DX: M75.42 Impingement syndrome of left shoulder (principal); M19.012 Primary osteoarthritis, left shoulder

== ENCOUNTER → 2022-03-26 | Outpatient (CLI) | payer BC ==
[2022-03-26 13:39] LABS: BASO % 0.5 % (0.0-1.0); EOS # 0.2 10^3/uL (0.0-0.5); EOS % 3.1 % (0.0-3.0); HEMATOCRIT 40.9 % (36.0-47.0); HEMOGLOBIN 12.1 g/dl (12.0-15.5); LYMPH # 1.5 10^3/uL (1.5-5.0); LYMPH % 23.2 % (24.0-44.0); MEAN CORPUSCULAR HEMOGLOBIN 26.9 pg (27.0-33.0); MEAN CORPUSCULAR HGB CONC 29.6 g/dl (32.0-36.5); MEAN CORPUSCULAR VOLUME 91.1 fl (80.0-96.0); MONO # 0.6 10^3/uL (0.0-0.8); MONO % 9.3 % (2.0-8.0); NEUTROPHILS # 4.1 10^3/uL (1.5-8.5); NEUTROPHILS % 63.6 % (36.0-66.0); PLATELET COUNT, AUTOMATED 325 10^3/uL (150-450); RED BLOOD COUNT 4.49 10^6/uL (4.00-5.40); WHITE BLOOD COUNT 6.5 10^3/uL (4.0-10.0)
[2022-03-26 14:30] LABS: ALBUMIN 3.4 GM/DL (3.2-5.2); CALCIUM LEVEL 9.1 MG/DL (8.5-10.1); CREATININE FOR GFR 1.13 MG/DL (0.55-1.30); GLOMERULAR FILTRATION RATE 53.4 (>51); MAGNESIUM LEVEL 2.3 MG/DL (1.8-2.4); PHOSPHORUS LEVEL 2.7 MG/DL (2.5-4.9); POTASSIUM SERUM 4.2 MEQ/L (3.5-5.1)
[2022-03-26 15:14] LABS: PTH INTACT 49.5 PG/ML (18.5-88.0); TOTAL 25(OH) VITAMIN D 103.9 NG/ML (30.0-100.0)
== END ==
LOC: M PLALAB 10:50
PROVIDERS: ATTEND Family Medicine
DX: D50.9 Iron deficiency anemia, unspecified (principal); E55.9 Vitamin D deficiency, unspecified; I10 Essential (primary) hypertension

== ENCOUNTER → 2022-04-06 | Outpatient (CLI) | payer BC | LOC: M RAD 09:33 | PROVIDERS: ATTEND Physician Assistant | DX: I87.311 Chronic venous hypertension (idiopathic) with ulcer of right lower extremity (principal); L97.812 Non-pressure chronic ulcer of other part of right lower leg with fat layer exposed ==

== ENCOUNTER → 2022-08-03 | Outpatient (REF) | payer BC, OTHER ==
[~2022-08-03] MED LIST changes: +ACET1TAB55 PO; +AMOX875T2 PO; +CLOB5CR TOP; +DULO60CA35 PO; +FERR1TAB8 PO; +FLUT50SP17; -FLUTISP NARES; +OMEP40CA5 PO; +PRED10TA2 PO; +PRED20TA PO; +RISATAB3 PO; +TUMS1000 PO; +WARF-20 PO
== END ==
LOC: M SFHCWOUN 16:58
PROVIDERS: ATTEND Physician Assistant
DX: E11.622 Type 2 diabetes mellitus with other skin ulcer (principal)

== ENCOUNTER → 2022-08-16 | Outpatient (CLI) | payer OTHER ==
[~2022-08-16] MED LIST changes: -ACET1TAB55 PO; -AMOX875T2 PO; -CLOB5CR TOP; -DULO60CA35 PO; -FERR1TAB8 PO; -FLUT50SP17; +FLUTISP NARES; -OMEP40CA5 PO; -PRED10TA2 PO; -PRED20TA PO; -RISATAB3 PO; -TUMS1000 PO; -WARF-20 PO
[2022-08-16 15:37] LABS: BASO % 0.5 % (0.0-1.0); EOS # 0.2 10^3/uL (0.0-0.5); HEMATOCRIT 35.9 % (36.0-47.0); HEMOGLOBIN 10.2 g/dl (12.0-15.5); LYMPH # 1.8 10^3/uL (1.5-5.0); LYMPH % 23.4 % (24.0-44.0); MEAN CORPUSCULAR HEMOGLOBIN 25.7 pg (27.0-33.0); MEAN CORPUSCULAR HGB CONC 28.4 g/dl (32.0-36.5); MEAN CORPUSCULAR VOLUME 90.4 fl (80.0-96.0); MONO # 0.7 10^3/uL (0.0-0.8); MONO % 9.9 % (2.0-8.0); NEUTROPHILS # 4.8 10^3/uL (1.5-8.5); NEUTROPHILS % 63.9 % (36.0-66.0); PLATELET COUNT, AUTOMATED 387 10^3/uL (150-450); RED BLOOD COUNT 3.97 10^6/uL (4.00-5.40); WHITE BLOOD COUNT 7.5 10^3/uL (4.0-10.0)
[2022-08-16 17:43] LABS: HEPATITIS B SURFACE ANTIGEN NEGATIVE (NEGATIVE)
[2022-08-16 17:51] LABS: ALBUMIN 3.7 G/DL (3.2-5.2); ALKALINE PHOSPHATASE 106 U/L (46-116); ALT/SGPT 14 U/L (7.0-40); AST/SGOT 12 U/L (<34); BILIRUBIN,TOTAL 0.2 MG/DL (0.3-1.2); BLOOD UREA NITROGEN 32 MG/DL (9-23); CALCIUM LEVEL 9.4 MG/DL (8.5-10.1); CARBON DIOXIDE LEVEL 29 MMOL/L (20-31); CHLORIDE LEVEL 106 MMOL/L (98-107); CREATININE FOR GFR 0.95 MG/DL (0.55-1.30); GLOMERULAR FILTRATION RATE > 60.0 (>51); GLUCOSE, FASTING 92 MG/DL (60-100); POTASSIUM SERUM 4.7 MMOL/L (3.5-5.1); SODIUM LEVEL 140 MMOL/L (136-145)
[2022-08-16 18:31] LABS: RHEUMATOID FACTOR QUANT 5.9 IU/ML (<14)
[2022-08-17 07:34] LABS: ERYTHROCYTE SEDIMENTATION RATE > 130 mm/hr (0-30)
== END ==
LOC: M PLALAB 12:20
PROVIDERS: ATTEND Physician Assistant
DX: L97.812 Non-pressure chronic ulcer of other part of right lower leg with fat layer exposed (principal)

== ENCOUNTER 2022-09-03 18:39 | Inpatient (IN) | payer OTHER ==
[~2022-09-03] VITALS: Ht 157.5 cm; Wt 165.5 kg
[~2022-09-03 18:39] MED LIST changes: +FLUT50SP17; -FLUTISP NARES
[2022-09-03] MEDS ORDERED: ceFAZolin SOD 1 GM in D5W MINI-BAG PLUS 50 ML IV ONE (19:45)
[2022-09-03 20:36] LABS: BASO # 0.1 10^3/uL (0.0-0.2); BASO % 0.2 % (0.0-1.0); HEMATOCRIT 32.9 % (36.0-47.0); HEMOGLOBIN 9.9 g/dl (12.0-15.5); LYMPH # 1.5 10^3/uL (1.5-5.0); LYMPH % 6.3 % (24.0-44.0); MEAN CORPUSCULAR HEMOGLOBIN 25.3 pg (27.0-33.0); MEAN CORPUSCULAR HGB CONC 30.1 g/dl (32.0-36.5); MEAN CORPUSCULAR VOLUME 83.9 fl (80.0-96.0); MONO # 1.4 10^3/uL (0.0-0.8); MONO % 5.6 % (2.0-8.0); NEUTROPHILS # 20.9 10^3/uL (1.5-8.5); NEUTROPHILS % 85.1 % (36.0-66.0); PLATELET COUNT, AUTOMATED 388 10^3/uL (150-450); RED BLOOD COUNT 3.92 10^6/uL (4.00-5.40); WHITE BLOOD COUNT 24.6 10^3/uL (4.0-10.0)
[2022-09-03 20:42] LABS: BLOOD UREA NITROGEN 29 MG/DL (9-23); CALCIUM LEVEL 9.1 MG/DL (8.5-10.1); CARBON DIOXIDE LEVEL 29 MMOL/L (20-31); CHLORIDE LEVEL 100 MMOL/L (98-107); CREATININE FOR GFR 0.85 MG/DL (0.55-1.30); GLOMERULAR FILTRATION RATE > 60.0 (>51); GLUCOSE, FASTING 168 MG/DL (60-100); POTASSIUM SERUM 5.1 MMOL/L (3.5-5.1); SODIUM LEVEL 136 MMOL/L (136-145)
[2022-09-03 20:44] LABS: ERYTHROCYTE SEDIMENTATION RATE > 130 mm/hr (0-30)
[2022-09-03 21:15] LABS: INR 2.81
[2022-09-03] MEDS ORDERED: GLUCAGON INJ 1MG VIAL SC PRN (22:35)
[2022-09-03] MEDS ORDERED: ACETAMINOPHEN TAB 650MG DOSE (2X325MG) PO PRN (22:35)
[2022-09-03] MEDS ORDERED: DEXTROSE 50% 50ML SYRINGE IV PRN (22:35)
[2022-09-03] MEDS ORDERED: LR 1,000 ML IV ONE (22:35)
[2022-09-03] MEDS ORDERED: GLUCOSE 4GM CHEW TABLET PO PRN (22:35)
[2022-09-03] MEDS ORDERED: LR 1,000 ML IV SCH (22:35)
[2022-09-03] MEDS ORDERED: UNRESOLVED CLARIFICATION ENTRY XX STA (22:47)
[2022-09-03] MEDS: VANCOMYCIN HCL 1,000 MG, VIAL MATE ADAPTER 1 EACH in NS 250 ML IV SCH (23:09)
[2022-09-03] MEDS: MORPHINE 2 MG/ML 1ML VIAL IV PRN (23:11)
[2022-09-03] MEDS ORDERED: PRED10TA2 PO (23:17)
[2022-09-03] MEDS ORDERED: TUMS1000 PO (23:17)
[2022-09-03] MEDS ORDERED: CLOB5CR TOP (23:17)
[2022-09-03] MEDS ORDERED: DULO60CA35 PO (23:17)
[2022-09-03] MEDS ORDERED: WARF-20 PO (23:17)
[2022-09-03] MEDS ORDERED: FERR1TAB8 PO (23:17)
[2022-09-03] MEDS ORDERED: OMEP40CA5 PO (23:17)
[2022-09-03] MEDS ORDERED: ERGO500029 PO (23:17)
[2022-09-03] MEDS ORDERED: HOME MED LIST COMPLETE! XX SCH (23:20)
[2022-09-04] MEDS ORDERED: VANCOMYCIN HCL 1,000 MG, VIAL MATE ADAPTER 1 EACH in NS 250 ML IV ONE ×3
[2022-09-04 00:12] LABS: RSV AMPLIFICATION NEGATIVE (NEGATIVE)
[2022-09-04] MEDS: PERCOCET 5MG/325MG TAB PO PRN ×2 (00:35→21:37)
[2022-09-04 00:47] VITALS: BP 129/70
[2022-09-04] MEDS: GABAPENTIN 300 MG CAP PO SCH ×3 (01:21→21:37)
[2022-09-04] MEDS ORDERED: ALPRAZolam 0.5 MG TAB PO ONE (02:00)
[2022-09-04] MEDS: DULoxetine 30MG CAPSULE (CYMBALTA) PO SCH ×3 (02:02→21:36)
[2022-09-04] MEDS: WARFARIN SOD 4MG TAB PO SCH ×2 (02:02→17:34)
[2022-09-04] MEDS: methocarbamoL 500 MG TAB PO SCH ×3 (02:02→21:36)
[2022-09-04] MEDS: CARVedilol 6.25 MG TAB PO SCH ×3 (02:10→21:38)
[2022-09-04 03:46] VITALS: BP 118/55
[2022-09-04 04:15] LABS: HEMATOCRIT 29.6 % (36.0-47.0); HEMOGLOBIN 8.9 g/dl (12.0-15.5); MEAN CORPUSCULAR HEMOGLOBIN 24.7 pg (27.0-33.0); MEAN CORPUSCULAR HGB CONC 30.1 g/dl (32.0-36.5); MEAN CORPUSCULAR VOLUME 82.2 fl (80.0-96.0); PLATELET COUNT, AUTOMATED 330 10^3/uL (150-450); WHITE BLOOD COUNT 22.8 10^3/uL (4.0-10.0)
[2022-09-04 04:26] LABS: INR 2.63; PROTHROMBIN TIME 28.5 SECONDS (12.5-14.5)
[2022-09-04 04:45] LABS: BLOOD UREA NITROGEN 20 MG/DL (9-23); CALCIUM LEVEL 8.6 MG/DL (8.5-10.1); CARBON DIOXIDE LEVEL 27 MMOL/L (20-31); CHLORIDE LEVEL 101 MMOL/L (98-107); CREATININE FOR GFR 0.72 MG/DL (0.55-1.30); GLOMERULAR FILTRATION RATE > 60.0 (>51); GLUCOSE, FASTING 192 MG/DL (60-100); MAGNESIUM LEVEL 1.7 MG/DL (1.8-2.4); POTASSIUM SERUM 4.5 MMOL/L (3.5-5.1); SODIUM LEVEL 132 MMOL/L (136-145)
[2022-09-04] MEDS ORDERED: MAG SULF 1GM/100ML (MAG RUN) 1 GM in IV 1 EA IV ONE (06:00)
[2022-09-04] MEDS: VANCOMYCIN HCL 1,000 MG, VIAL MATE ADAPTER 1 EACH in NS 250 ML IV SCH (06:42)
[2022-09-04 08:20] VITALS: BP 135/68
[2022-09-04] MEDS: OMEPRAZOLE 20MG CAP PO SCH (08:28)
[2022-09-04] MEDS: FERROUS SULFATE 325MG TAB PO SCH (08:29)
[2022-09-04] MEDS: GABAPENTIN 400MG CAP PO SCH (08:29)
[2022-09-04] MEDS: SPIRONOLACTONE 50 MG TAB PO SCH (08:29)
[2022-09-04] MEDS: INSULIN LISPRO (NovoLOG) PER UNIT SC SCH ×4 (08:48→21:00)
[2022-09-04] MEDS: FLUTICASONE PROP 0.05% NASAL SPRAY 16 GM (FLONASE) SCH (08:49)
[2022-09-04] MEDS: CLOBETASOL PROPIONATE EMOLLIENT 0.05% CR 60 GM TOP SCH (09:00)
[2022-09-04] MEDS ORDERED: predniSONE 10MG TAB PO SCH (09:00)
[2022-09-04] MEDS ORDERED: predniSONE 20 MG TAB PO ONE (09:00)
[2022-09-04 11:44] VITALS: BP 136/62
[2022-09-04 15:54] VITALS: BP 129/60
[2022-09-04] MEDS: VANCOMYCIN HCL 750 MG, VIAL MATE ADAPTER 1 EACH in D5W 250 ML IV SCH (17:23)
[2022-09-04] MEDS ORDERED: LIDOCAINE 1% MDV 20ML VIAL As Ordered ONE (18:28)
[2022-09-04] MEDS ORDERED: LIDOCAINE 1% MDV 20ML VIAL SC ONE (18:55)
[2022-09-04] MEDS: VANCOMYCIN HCL 500 MG in D5W MINI-BAG PLUS 100 ML IV SCH (19:11)
[2022-09-04 20:00] VITALS: BP 135/60
[2022-09-05] VITALS: BP 135/63
[2022-09-05] MEDS: VANCOMYCIN HCL 750 MG, VIAL MATE ADAPTER 1 EACH in D5W 250 ML IV SCH (00:54)
[2022-09-05] MEDS: VANCOMYCIN HCL 500 MG in D5W MINI-BAG PLUS 100 ML IV SCH (00:56)
[2022-09-05 04:00] VITALS: BP 129/62
[2022-09-05 08:00] VITALS: BP 124/60
[2022-09-05 08:25] LABS: HEMOGLOBIN 8.6 g/dl (12.0-15.5); MEAN CORPUSCULAR HEMOGLOBIN 25.2 pg (27.0-33.0); MEAN CORPUSCULAR HGB CONC 30.7 g/dl (32.0-36.5); MEAN CORPUSCULAR VOLUME 82.1 fl (80.0-96.0); PLATELET COUNT, AUTOMATED 313 10^3/uL (150-450); RED BLOOD COUNT 3.41 10^6/uL (4.00-5.40); WHITE BLOOD COUNT 14.6 10^3/uL (4.0-10.0)
[2022-09-05 08:42] LABS: VANCOMYCIN LEVEL TROUGH 18.3 UG/ML (10.0-20.0)
[2022-09-05 08:43] LABS: INR 3.12; PROTHROMBIN TIME 32.6 SECONDS (12.5-14.5)
[2022-09-05 08:47] LABS: ALBUMIN 1.4 G/DL (3.2-5.2); ALKALINE PHOSPHATASE 99 U/L (46-116); ALT/SGPT 25 U/L (7.0-40); AST/SGOT 13 U/L (<34); BILIRUBIN,TOTAL 0.3 MG/DL (0.3-1.2); BLOOD UREA NITROGEN 16 MG/DL (9-23); CALCIUM LEVEL 8.3 MG/DL (8.5-10.1); CARBON DIOXIDE LEVEL 31 MMOL/L (20-31); CHLORIDE LEVEL 100 MMOL/L (98-107); CREATININE FOR GFR 0.74 MG/DL (0.55-1.30); GLOMERULAR FILTRATION RATE > 60.0 (>51); GLUCOSE, FASTING 162 MG/DL (60-100); POTASSIUM SERUM 4.3 MMOL/L (3.5-5.1); SODIUM LEVEL 137 MMOL/L (136-145); TOTAL PROTEIN 5.3 G/DL (5.7-8.2)
[2022-09-05] MEDS ORDERED: predniSONE 10MG TAB PO ONE (09:00)
[2022-09-05] MEDS: INSULIN LISPRO (NovoLOG) PER UNIT SC SCH ×4 (09:19→20:41)
[2022-09-05] MEDS: methocarbamoL 500 MG TAB PO SCH ×2 (09:19→20:40)
[2022-09-05] MEDS: FERROUS SULFATE 325MG TAB PO SCH (09:19)
[2022-09-05] MEDS: GABAPENTIN 400MG CAP PO SCH (09:20)
[2022-09-05] MEDS: DULoxetine 30MG CAPSULE (CYMBALTA) PO SCH ×2 (09:20→20:40)
[2022-09-05] MEDS: OMEPRAZOLE 20MG CAP PO SCH (09:20)
[2022-09-05] MEDS: CARVedilol 6.25 MG TAB PO SCH ×2 (09:20→20:41)
[2022-09-05] MEDS: FLUTICASONE PROP 0.05% NASAL SPRAY 16 GM (FLONASE) SCH (09:21)
[2022-09-05] MEDS: SPIRONOLACTONE 50 MG TAB PO SCH (09:21)
[2022-09-05] MEDS: CLOBETASOL PROPIONATE EMOLLIENT 0.05% CR 60 GM TOP SCH (09:22)
[2022-09-05] MEDS: MORPHINE 2 MG/ML 1ML VIAL IV PRN ×2 (09:46→14:08)
[2022-09-05] MEDS ORDERED: VANCOMYCIN HCL 750 MG, VIAL MATE ADAPTER 1 EACH in D5W 250 ML IV SCH (10:00)
[2022-09-05] MEDS ORDERED: VANCOMYCIN HCL 500 MG in D5W MINI-BAG PLUS 100 ML IV SCH (11:00)
[2022-09-05 12:00] VITALS: BP 132/55
[2022-09-05] MEDS ORDERED: PIPERACILLIN/TAZOBACTAM SOD 4.5 GM in D5W MINI-BAG PLUS 50 ML IV SCH (13:00)
[2022-09-05] MEDS ORDERED: cefTRIAXone SOD 2 GM in D5W MINI-BAG PLUS 50 ML IV SCH (15:50)
[2022-09-05 16:00] VITALS: BP 128/58
[2022-09-05] MEDS ORDERED: cefTRIAXone SOD 1 GM in D5W MINI-BAG PLUS 50 ML IV SCH (17:00)
[2022-09-05] MEDS: cefTRIAXone SOD 2 GM in D5W MINI-BAG PLUS 50 ML IV SCH (17:34)
[2022-09-05] MEDS: GABAPENTIN 300 MG CAP PO SCH ×2 (17:34→20:40)
[2022-09-05 20:17] VITALS: BP 142/60
[2022-09-05] MEDS: PERCOCET 5MG/325MG TAB PO PRN (22:10)
[2022-09-06 00:19] VITALS: BP 141/67
[2022-09-06 04:22] VITALS: BP 141/64
[2022-09-06 06:09] LABS: HEMATOCRIT 28.8 % (36.0-47.0); HEMOGLOBIN 8.6 g/dl (12.0-15.5); MEAN CORPUSCULAR HEMOGLOBIN 24.9 pg (27.0-33.0); MEAN CORPUSCULAR HGB CONC 29.9 g/dl (32.0-36.5); MEAN CORPUSCULAR VOLUME 83.2 fl (80.0-96.0); PLATELET COUNT, AUTOMATED 308 10^3/uL (150-450); RED BLOOD COUNT 3.46 10^6/uL (4.00-5.40); WHITE BLOOD COUNT 14.8 10^3/uL (4.0-10.0)
[2022-09-06 06:34] LABS: ALBUMIN 1.4 G/DL (3.2-5.2); ALKALINE PHOSPHATASE 95 U/L (46-116); ALT/SGPT 25 U/L (7.0-40); AST/SGOT 12 U/L (<34); BILIRUBIN,TOTAL 0.2 MG/DL (0.3-1.2); BLOOD UREA NITROGEN 16 MG/DL (9-23); CALCIUM LEVEL 8.4 MG/DL (8.5-10.1); CARBON DIOXIDE LEVEL 32 MMOL/L (20-31); CHLORIDE LEVEL 99 MMOL/L (98-107); CREATININE FOR GFR 0.76 MG/DL (0.55-1.30); GLOMERULAR FILTRATION RATE > 60.0 (>51); GLUCOSE, FASTING 128 MG/DL (60-100); MAGNESIUM LEVEL 1.9 MG/DL (1.8-2.4); POTASSIUM SERUM 4.6 MMOL/L (3.5-5.1); SODIUM LEVEL 136 MMOL/L (136-145); TOTAL PROTEIN 5.8 G/DL (5.7-8.2)
[2022-09-06 06:49] LABS: INR 2.89; PROTHROMBIN TIME 30.7 SECONDS (12.5-14.5)
[2022-09-06 07:41] VITALS: BP 139/63
[2022-09-06] MEDS: GABAPENTIN 400MG CAP PO SCH (08:45)
[2022-09-06] MEDS: DULoxetine 30MG CAPSULE (CYMBALTA) PO SCH ×2 (08:45→21:23)
[2022-09-06] MEDS: FERROUS SULFATE 325MG TAB PO SCH (08:45)
[2022-09-06] MEDS: SPIRONOLACTONE 50 MG TAB PO SCH (08:45)
[2022-09-06] MEDS: INSULIN LISPRO (NovoLOG) PER UNIT SC SCH ×4 (08:45→21:00)
[2022-09-06] MEDS: OMEPRAZOLE 20MG CAP PO SCH (08:45)
[2022-09-06] MEDS: CARVedilol 6.25 MG TAB PO SCH ×2 (08:46→21:24)
[2022-09-06] MEDS: PERCOCET 5MG/325MG TAB PO PRN ×3 (08:47→21:30)
[2022-09-06] MEDS: FLUTICASONE PROP 0.05% NASAL SPRAY 16 GM (FLONASE) SCH (08:59)
[2022-09-06] MEDS: methocarbamoL 500 MG TAB PO SCH ×2 (08:59→21:24)
[2022-09-06] MEDS: CLOBETASOL PROPIONATE EMOLLIENT 0.05% CR 60 GM TOP SCH (08:59)
[2022-09-06] MEDS ORDERED: predniSONE 20 MG TAB PO ONE (09:00)
[2022-09-06 12:23] VITALS: BP 137/64
[2022-09-06 15:10] VITALS: BP 129/59
[2022-09-06] MEDS: GABAPENTIN 300 MG CAP PO SCH ×2 (15:36→21:23)
[2022-09-06] MEDS: cefTRIAXone SOD 2 GM in D5W MINI-BAG PLUS 50 ML IV SCH (18:01)
[2022-09-06] MEDS: WARFARIN SOD 4MG TAB PO SCH (18:01)
[2022-09-06 20:00] VITALS: BP 126/63
[2022-09-07 05:22] VITALS: BP 130/59
[2022-09-07 06:01] LABS: HEMATOCRIT 28.7 % (36.0-47.0); HEMOGLOBIN 8.7 g/dl (12.0-15.5); MEAN CORPUSCULAR HEMOGLOBIN 25.2 pg (27.0-33.0); MEAN CORPUSCULAR HGB CONC 30.3 g/dl (32.0-36.5); MEAN CORPUSCULAR VOLUME 83.2 fl (80.0-96.0); PLATELET COUNT, AUTOMATED 344 10^3/uL (150-450); RED BLOOD COUNT 3.45 10^6/uL (4.00-5.40); WHITE BLOOD COUNT 13.6 10^3/uL (4.0-10.0)
[2022-09-07 06:11] LABS: INR 2.43; PROTHROMBIN TIME 26.8 SECONDS (12.5-14.5)
[2022-09-07 06:40] LABS: ALBUMIN 1.5 G/DL (3.2-5.2); ALKALINE PHOSPHATASE 87 U/L (46-116); ALT/SGPT 31 U/L (7.0-40); AST/SGOT 14 U/L (<34); BILIRUBIN,TOTAL 0.2 MG/DL (0.3-1.2); BLOOD UREA NITROGEN 19 MG/DL (9-23); CALCIUM LEVEL 8.1 MG/DL (8.5-10.1); CARBON DIOXIDE LEVEL 34 MMOL/L (20-31); CHLORIDE LEVEL 101 MMOL/L (98-107); CREATININE FOR GFR 0.83 MG/DL (0.55-1.30); GLOMERULAR FILTRATION RATE > 60.0 (>51); GLUCOSE, FASTING 145 MG/DL (60-100); POTASSIUM SERUM 4.6 MMOL/L (3.5-5.1); SODIUM LEVEL 138 MMOL/L (136-145); TOTAL PROTEIN 5.9 G/DL (5.7-8.2)
[2022-09-07] MEDS: INSULIN LISPRO (NovoLOG) PER UNIT SC SCH ×4 (08:32→20:56)
[2022-09-07] MEDS: DULoxetine 30MG CAPSULE (CYMBALTA) PO SCH ×2 (08:33→20:59)
[2022-09-07] MEDS: methocarbamoL 500 MG TAB PO SCH ×2 (08:33→20:59)
[2022-09-07] MEDS: SPIRONOLACTONE 50 MG TAB PO SCH (08:33)
[2022-09-07] MEDS: GABAPENTIN 400MG CAP PO SCH (08:34)
[2022-09-07] MEDS: FERROUS SULFATE 325MG TAB PO SCH (08:34)
[2022-09-07] MEDS: OMEPRAZOLE 20MG CAP PO SCH (08:35)
[2022-09-07] MEDS: CARVedilol 6.25 MG TAB PO SCH ×2 (08:36→20:59)
[2022-09-07] MEDS: PERCOCET 5MG/325MG TAB PO PRN ×3 (08:37→21:00)
[2022-09-07] MEDS ORDERED: predniSONE 10MG TAB PO ONE (09:00)
[2022-09-07] MEDS: CLOBETASOL PROPIONATE EMOLLIENT 0.05% CR 60 GM TOP SCH (09:00)
[2022-09-07] MEDS: FLUTICASONE PROP 0.05% NASAL SPRAY 16 GM (FLONASE) SCH (12:31)
[2022-09-07] MEDS: LACTOBACILLUS ACIDOPHILUS CAP (BACID) PO SCH ×2 (12:32→17:49)
[2022-09-07] MEDS: LevoFLOXacin 750 MG TABLET PO SCH (12:32)
[2022-09-07 16:18] VITALS: BP 129/54
[2022-09-07] MEDS: GABAPENTIN 300 MG CAP PO SCH ×2 (17:49→20:59)
[2022-09-07] MEDS: WARFARIN SOD 4MG TAB PO SCH (17:49)
[2022-09-07] MEDS: cefTRIAXone SOD 2 GM in D5W MINI-BAG PLUS 50 ML IV SCH (17:51)
[2022-09-07] MEDS ORDERED: LACTOBACILLUS ACIDOPHILUS CAP (BACID) PO SCH (18:00)
[2022-09-07 22:00] VITALS: BP 127/57
[2022-09-08] MEDS: PERCOCET 5MG/325MG TAB PO PRN ×2 (05:48→20:15)
[2022-09-08] MEDS: LevoFLOXacin 750 MG TABLET PO SCH (05:48)
[2022-09-08 06:07] VITALS: BP 127/60
[2022-09-08 06:53] LABS: HEMATOCRIT 30.2 % (36.0-47.0); HEMOGLOBIN 8.9 g/dl (12.0-15.5); MEAN CORPUSCULAR HEMOGLOBIN 24.7 pg (27.0-33.0); MEAN CORPUSCULAR HGB CONC 29.5 g/dl (32.0-36.5); MEAN CORPUSCULAR VOLUME 83.7 fl (80.0-96.0); PLATELET COUNT, AUTOMATED 338 10^3/uL (150-450); RED BLOOD COUNT 3.61 10^6/uL (4.00-5.40); WHITE BLOOD COUNT 12.2 10^3/uL (4.0-10.0)
[2022-09-08 07:07] LABS: INR 2.34
[2022-09-08 07:23] LABS: ALBUMIN 1.5 G/DL (3.2-5.2); ALKALINE PHOSPHATASE 89 U/L (46-116); ALT/SGPT 34 U/L (7.0-40); AST/SGOT 17 U/L (<34); BILIRUBIN,TOTAL 0.3 MG/DL (0.3-1.2); BLOOD UREA NITROGEN 18 MG/DL (9-23); CALCIUM LEVEL 8.5 MG/DL (8.5-10.1); CARBON DIOXIDE LEVEL 32 MMOL/L (20-31); CHLORIDE LEVEL 99 MMOL/L (98-107); CREATININE FOR GFR 0.85 MG/DL (0.55-1.30); GLOMERULAR FILTRATION RATE > 60.0 (>51); GLUCOSE, FASTING 145 MG/DL (60-100); POTASSIUM SERUM 4.4 MMOL/L (3.5-5.1); SODIUM LEVEL 136 MMOL/L (136-145); TOTAL PROTEIN 6.3 G/DL (5.7-8.2)
[2022-09-08] MEDS: INSULIN LISPRO (NovoLOG) PER UNIT SC SCH ×4 (08:12→20:33)
[2022-09-08] MEDS: DULoxetine 30MG CAPSULE (CYMBALTA) PO SCH ×2 (08:13→20:10)
[2022-09-08] MEDS: SPIRONOLACTONE 50 MG TAB PO SCH (08:13)
[2022-09-08] MEDS: LACTOBACILLUS ACIDOPHILUS CAP (BACID) PO SCH ×2 (08:13→17:18)
[2022-09-08] MEDS: AUGMENTIN 875 MG TAB PO SCH ×2 (08:13→20:10)
[2022-09-08] MEDS: CARVedilol 6.25 MG TAB PO SCH ×2 (08:13→20:13)
[2022-09-08] MEDS: GABAPENTIN 400MG CAP PO SCH (08:13)
[2022-09-08] MEDS: FERROUS SULFATE 325MG TAB PO SCH (08:13)
[2022-09-08] MEDS: OMEPRAZOLE 20MG CAP PO SCH (08:13)
[2022-09-08] MEDS: FLUTICASONE PROP 0.05% NASAL SPRAY 16 GM (FLONASE) SCH (08:14)
[2022-09-08] MEDS: methocarbamoL 500 MG TAB PO SCH ×2 (08:14→20:10)
[2022-09-08] MEDS: CLOBETASOL PROPIONATE EMOLLIENT 0.05% CR 60 GM TOP SCH (12:46)
[2022-09-08 14:15] VITALS: BP 112/64
[2022-09-08] MEDS: WARFARIN SOD 4MG TAB PO SCH (17:19)
[2022-09-08] MEDS: GABAPENTIN 300 MG CAP PO SCH ×2 (17:19→20:10)
[2022-09-08 21:30] VITALS: BP 121/64
[2022-09-09] MEDS: PERCOCET 5MG/325MG TAB PO PRN ×3 (05:30→20:59)
[2022-09-09] MEDS: LevoFLOXacin 750 MG TABLET PO SCH (05:31)
[2022-09-09 06:22] LABS: HEMATOCRIT 31.2 % (36.0-47.0); HEMOGLOBIN 9.2 g/dl (12.0-15.5); MEAN CORPUSCULAR HGB CONC 29.5 g/dl (32.0-36.5); MEAN CORPUSCULAR VOLUME 84.8 fl (80.0-96.0); PLATELET COUNT, AUTOMATED 368 10^3/uL (150-450); RED BLOOD COUNT 3.68 10^6/uL (4.00-5.40); WHITE BLOOD COUNT 13.1 10^3/uL (4.0-10.0)
[2022-09-09 06:32] LABS: INR 2.13; PROTHROMBIN TIME 24.2 SECONDS (12.5-14.5)
[2022-09-09 06:40] VITALS: BP 120/64
[2022-09-09 06:50] LABS: ALBUMIN 1.7 G/DL (3.2-5.2); ALKALINE PHOSPHATASE 108 U/L (46-116); ALT/SGPT 35 U/L (7.0-40); AST/SGOT 13 U/L (<34); BILIRUBIN,TOTAL 0.4 MG/DL (0.3-1.2); BLOOD UREA NITROGEN 19 MG/DL (9-23); CALCIUM LEVEL 8.4 MG/DL (8.5-10.1); CARBON DIOXIDE LEVEL 31 MMOL/L (20-31); CHLORIDE LEVEL 99 MMOL/L (98-107); CREATININE FOR GFR 0.94 MG/DL (0.55-1.30); GLOMERULAR FILTRATION RATE > 60.0 (>51); GLUCOSE, FASTING 147 MG/DL (60-100); POTASSIUM SERUM 4.3 MMOL/L (3.5-5.1); SODIUM LEVEL 137 MMOL/L (136-145); TOTAL PROTEIN 6.4 G/DL (5.7-8.2)
[2022-09-09] MEDS: LACTOBACILLUS ACIDOPHILUS CAP (BACID) PO SCH ×2 (07:37→17:42)
[2022-09-09] MEDS: INSULIN LISPRO (NovoLOG) PER UNIT SC SCH ×4 (07:38→20:44)
[2022-09-09] MEDS: GABAPENTIN 400MG CAP PO SCH (09:49)
[2022-09-09] MEDS: AUGMENTIN 875 MG TAB PO SCH ×2 (09:49→20:58)
[2022-09-09] MEDS: OMEPRAZOLE 20MG CAP PO SCH (09:50)
[2022-09-09] MEDS: CARVedilol 6.25 MG TAB PO SCH ×2 (09:51→20:55)
[2022-09-09] MEDS: DULoxetine 30MG CAPSULE (CYMBALTA) PO SCH ×2 (09:51→20:58)
[2022-09-09] MEDS: methocarbamoL 500 MG TAB PO SCH ×2 (09:51→20:58)
[2022-09-09] MEDS: FERROUS SULFATE 325MG TAB PO SCH (09:52)
[2022-09-09] MEDS: SPIRONOLACTONE 50 MG TAB PO SCH (09:52)
[2022-09-09] MEDS: CLOBETASOL PROPIONATE EMOLLIENT 0.05% CR 60 GM TOP SCH (09:53)
[2022-09-09] MEDS: FLUTICASONE PROP 0.05% NASAL SPRAY 16 GM (FLONASE) SCH (09:53)
[2022-09-09] MEDS: GABAPENTIN 300 MG CAP PO SCH ×2 (17:42→20:58)
[2022-09-09] MEDS: WARFARIN SOD 4MG TAB PO SCH (18:30)
[2022-09-09 21:04] VITALS: BP 90/57
[2022-09-09 21:05] VITALS: BP 98/62
[2022-09-10] MEDS: PERCOCET 5MG/325MG TAB PO PRN (05:31)
[2022-09-10] MEDS: LevoFLOXacin 750 MG TABLET PO SCH (05:31)
[2022-09-10 06:00] VITALS: BP 145/65
[2022-09-10 06:03] LABS: HEMATOCRIT 29.7 % (36.0-47.0); HEMOGLOBIN 8.6 g/dl (12.0-15.5); MEAN CORPUSCULAR HEMOGLOBIN 24.7 pg (27.0-33.0); MEAN CORPUSCULAR VOLUME 85.3 fl (80.0-96.0); PLATELET COUNT, AUTOMATED 358 10^3/uL (150-450); RED BLOOD COUNT 3.48 10^6/uL (4.00-5.40); WHITE BLOOD COUNT 12.8 10^3/uL (4.0-10.0)
[2022-09-10 06:18] LABS: INR 1.95; PROTHROMBIN TIME 22.6 SECONDS (12.5-14.5)
[2022-09-10 06:29] LABS: ALBUMIN 1.7 G/DL (3.2-5.2); ALKALINE PHOSPHATASE 91 U/L (46-116); ALT/SGPT 30 U/L (7.0-40); AST/SGOT 12 U/L (<34); BILIRUBIN,TOTAL 0.3 MG/DL (0.3-1.2); BLOOD UREA NITROGEN 19 MG/DL (9-23); CALCIUM LEVEL 8.7 MG/DL (8.5-10.1); CARBON DIOXIDE LEVEL 30 MMOL/L (20-31); CHLORIDE LEVEL 99 MMOL/L (98-107); CREATININE FOR GFR 0.83 MG/DL (0.55-1.30); GLOMERULAR FILTRATION RATE > 60.0 (>51); GLUCOSE, FASTING 132 MG/DL (60-100); POTASSIUM SERUM 4.1 MMOL/L (3.5-5.1); SODIUM LEVEL 135 MMOL/L (136-145); TOTAL PROTEIN 6.4 G/DL (5.7-8.2)
[2022-09-10] MEDS: INSULIN LISPRO (NovoLOG) PER UNIT SC SCH ×2 (08:42→12:00)
[2022-09-10] MEDS: CLOBETASOL PROPIONATE EMOLLIENT 0.05% CR 60 GM TOP SCH (08:43)
[2022-09-10] MEDS: FLUTICASONE PROP 0.05% NASAL SPRAY 16 GM (FLONASE) SCH (08:43)
[2022-09-10] MEDS: OMEPRAZOLE 20MG CAP PO SCH (08:43)
[2022-09-10] MEDS: SPIRONOLACTONE 50 MG TAB PO SCH (08:43)
[2022-09-10] MEDS: GABAPENTIN 400MG CAP PO SCH (08:44)
[2022-09-10] MEDS: DULoxetine 30MG CAPSULE (CYMBALTA) PO SCH (08:44)
[2022-09-10] MEDS: FERROUS SULFATE 325MG TAB PO SCH (08:44)
[2022-09-10] MEDS: methocarbamoL 500 MG TAB PO SCH (08:45)
[2022-09-10] MEDS: LACTOBACILLUS ACIDOPHILUS CAP (BACID) PO SCH (08:45)
[2022-09-10] MEDS: AUGMENTIN 875 MG TAB PO SCH (08:45)
[2022-09-10 08:48] VITALS: BP 142/65
[2022-09-10] MEDS: CARVedilol 6.25 MG TAB PO SCH (08:48)
[2022-09-10] MEDS ORDERED: ACET1TAB55 PO (12:49)
[2022-09-10] MEDS ORDERED: RISATAB3 PO (12:49)
[2022-09-10] MEDS ORDERED: AMOX875T2 PO (12:49)
[2022-09-10] MEDS ORDERED: LEVO1TAB40 PO (12:49)
[2022-09-10] MEDS ORDERED: PRED20TA PO (13:00)
== END 2022-09-10 15:53 | DRG 720 ==
LOC: M ED 18:39 → M ED INP 22:33 → M PCU 09-04 00:20 → M MS5PR 09-06 15:10
PROVIDERS: ADMIT Family Medicine; ATTEND Internal Medicine
PROC: 0HDMXZZ Extraction of Right Foot Skin, External Approach (ICD-10-PCS; principal; 2022-09-04)
PROC: 0H9MXZZ Drainage of Right Foot Skin, External Approach (ICD-10-PCS; 2022-09-04)
PROC: B246ZZZ Ultrasonography of Right and Left Heart (ICD-10-PCS; 2022-09-06)
DX: A40.8 Other streptococcal sepsis (principal); E11.22 Type 2 diabetes mellitus with diabetic chronic kidney disease; E11.51 Type 2 diabetes mellitus with diabetic peripheral angiopathy without gangrene; E11.622 Type 2 diabetes mellitus with other skin ulcer; E11.621 Type 2 diabetes mellitus with foot ulcer; E66.01 Morbid (severe) obesity due to excess calories; L97.919 Non-pressure chronic ulcer of unspecified part of right lower leg with unspecified severity; L97.518 Non-pressure chronic ulcer of other part of right foot with other specified severity; Z68.44 Body mass index [BMI] 60.0-69.9, adult; N18.30 Chronic kidney disease, stage 3 unspecified; L08.9 Local infection of the skin and subcutaneous tissue, unspecified; L03.031 Cellulitis of right toe; I12.9 Hypertensive chronic kidney disease with stage 1 through stage 4 chronic kidney disease, or unspecified chronic kidney disease; E28.2 Polycystic ovarian syndrome; I87.2 Venous insufficiency (chronic) (peripheral); G47.33 Obstructive sleep apnea (adult) (pediatric); I89.0 Lymphedema, not elsewhere classified; E73.9 Lactose intolerance, unspecified; D50.9 Iron deficiency anemia, unspecified; F32.A Depression, unspecified; F41.9 Anxiety disorder, unspecified; Z79.01 Long term (current) use of anticoagulants; Z79.899 Other long term (current) drug therapy; Z91.040 Latex allergy status; Z91.048 Other nonmedicinal substance allergy status; Z90.49 Acquired absence of other specified parts of digestive tract; Z86.711 Personal history of pulmonary embolism

== ENCOUNTER → 2022-12-05 | Outpatient (REF) | payer OTHER ==
[~2022-12-05] MED LIST changes: +ACET1TAB55 PO; +AMOX875T2 PO; +CLOB5CR TOP; +DULO60CA35 PO; +FERR1TAB8 PO; +OMEP40CA5 PO; +PRED10TA2 PO; +PRED20TA PO; +RISATAB3 PO; +TUMS1000 PO; +WARF-20 PO
[2022-12-05 18:41] LABS: BASO # 0.1 10^3/uL (0.0-0.2); BASO % 0.9 % (0.0-1.0); EOS # 0.2 10^3/uL (0.0-0.5); HEMATOCRIT 38.2 % (36.0-47.0); HEMOGLOBIN 10.9 g/dl (12.0-15.5); LYMPH # 2.4 10^3/uL (1.5-5.0); LYMPH % 34.4 % (24.0-44.0); MEAN CORPUSCULAR HEMOGLOBIN 24.4 pg (27.0-33.0); MEAN CORPUSCULAR HGB CONC 28.5 g/dl (32.0-36.5); MEAN CORPUSCULAR VOLUME 85.7 fl (80.0-96.0); MONO # 0.8 10^3/uL (0.0-0.8); MONO % 10.7 % (2.0-8.0); NEUTROPHILS # 3.6 10^3/uL (1.5-8.5); NEUTROPHILS % 50.7 % (36.0-66.0); PLATELET COUNT, AUTOMATED 433 10^3/uL (150-450); RED BLOOD COUNT 4.46 10^6/uL (4.00-5.40)
[2022-12-05 18:58] LABS: ERYTHROCYTE SEDIMENTATION RATE 105 mm/hr (0-30)
[2022-12-05 19:03] LABS: C REACTIVE PROTEIN QUANTITATIV 2.7 MG/DL (<1.0)
[2022-12-05 19:04] LABS: ALBUMIN 3.8 G/DL (3.2-5.2); BILIRUBIN,TOTAL 0.4 MG/DL (0.3-1.2); CALCIUM LEVEL 10.3 MG/DL (8.5-10.1); CREATININE FOR GFR 1.12 MG/DL (0.55-1.30); GLOMERULAR FILTRATION RATE 53.8 (>51); POTASSIUM SERUM 4.6 MMOL/L (3.5-5.1); TOTAL PROTEIN 7.3 G/DL (5.7-8.2)
== END ==
LOC: M LAB REF 17:30
PROVIDERS: ATTEND Nurse Practitioner
DX: M46.46 Discitis, unspecified, lumbar region (principal); M86.20 Subacute osteomyelitis, unspecified site

== ENCOUNTER → 2022-12-10 | Outpatient (REF) | payer OTHER ==
[2022-12-13 15:23] LABS: FREE T4 1.07 NG/DL (0.89-1.76)
== END ==
LOC: M LAB REF 14:54
PROVIDERS: ATTEND Physician Assistant Medical
DX: E03.9 Hypothyroidism, unspecified (principal)

== ENCOUNTER → 2022-12-10 | Outpatient (REF) | payer OTHER ==
[2022-12-10 15:13] LABS: BASO % 0.5 % (0.0-1.0); EOS # 0.2 10^3/uL (0.0-0.5); EOS % 3.5 % (0.0-3.0); HEMATOCRIT 37.7 % (36.0-47.0); HEMOGLOBIN 11.1 g/dl (12.0-15.5); LYMPH # 1.8 10^3/uL (1.5-5.0); LYMPH % 28.6 % (24.0-44.0); MEAN CORPUSCULAR HEMOGLOBIN 25.1 pg (27.0-33.0); MEAN CORPUSCULAR HGB CONC 29.4 g/dl (32.0-36.5); MEAN CORPUSCULAR VOLUME 85.1 fl (80.0-96.0); MONO # 0.7 10^3/uL (0.0-0.8); MONO % 11.6 % (2.0-8.0); NEUTROPHILS # 3.5 10^3/uL (1.5-8.5); NEUTROPHILS % 55.5 % (36.0-66.0); PLATELET COUNT, AUTOMATED 348 10^3/uL (150-450); RED BLOOD COUNT 4.43 10^6/uL (4.00-5.40); WHITE BLOOD COUNT 6.4 10^3/uL (4.0-10.0)
[2022-12-10 15:45] LABS: ALBUMIN 3.5 G/DL (3.2-5.2); ALKALINE PHOSPHATASE 128 U/L (46-116); ALT/SGPT 27 U/L (7.0-40); AST/SGOT 23 U/L (<34); BILIRUBIN,TOTAL 0.3 MG/DL (0.3-1.2); BLOOD UREA NITROGEN 25 MG/DL (9-23); CALCIUM LEVEL 9.4 MG/DL (8.5-10.1); CARBON DIOXIDE LEVEL 29 MMOL/L (20-31); CHLORIDE LEVEL 104 MMOL/L (98-107); CREATININE FOR GFR 1.01 MG/DL (0.55-1.30); GLOMERULAR FILTRATION RATE > 60.0 (>51); GLUCOSE, FASTING 92 MG/DL (60-100); POTASSIUM SERUM 4.7 MMOL/L (3.5-5.1); SODIUM LEVEL 140 MMOL/L (136-145); TOTAL PROTEIN 7.2 G/DL (5.7-8.2)
[2022-12-10 16:01] LABS: ERYTHROCYTE SEDIMENTATION RATE 119 mm/hr (0-30)
== END ==
LOC: M LAB REF 14:59
PROVIDERS: ATTEND Nurse Practitioner
DX: M46.46 Discitis, unspecified, lumbar region (principal); M86.20 Subacute osteomyelitis, unspecified site

== ENCOUNTER → 2022-12-16 | Outpatient (REF) | payer OTHER ==
[2022-12-16 12:46] LABS: BASO % 0.4 % (0.0-1.0); EOS # 0.1 10^3/uL (0.0-0.5); EOS % 1.7 % (0.0-3.0); HEMATOCRIT 37.2 % (36.0-47.0); HEMOGLOBIN 11.1 g/dl (12.0-15.5); LYMPH # 1.7 10^3/uL (1.5-5.0); MEAN CORPUSCULAR HEMOGLOBIN 25.1 pg (27.0-33.0); MEAN CORPUSCULAR HGB CONC 29.8 g/dl (32.0-36.5); MEAN CORPUSCULAR VOLUME 84.2 fl (80.0-96.0); MONO # 0.9 10^3/uL (0.0-0.8); MONO % 11.5 % (2.0-8.0); PLATELET COUNT, AUTOMATED 320 10^3/uL (150-450); RED BLOOD COUNT 4.42 10^6/uL (4.00-5.40); WHITE BLOOD COUNT 7.7 10^3/uL (4.0-10.0)
[2022-12-16 12:53] LABS: ERYTHROCYTE SEDIMENTATION RATE 114 mm/hr (0-30)
[2022-12-16 13:09] LABS: ALBUMIN 3.4 G/DL (3.2-5.2); BILIRUBIN,TOTAL 0.3 MG/DL (0.3-1.2); C REACTIVE PROTEIN QUANTITATIV 2.6 MG/DL (<1.0); CALCIUM LEVEL 9.5 MG/DL (8.5-10.1); CREATININE FOR GFR 1.1 MG/DL (0.55-1.30); GLOMERULAR FILTRATION RATE 54.9 (>51); POTASSIUM SERUM 4.4 MMOL/L (3.5-5.1); TOTAL PROTEIN 6.8 G/DL (5.7-8.2)
== END ==
LOC: M LAB REF 12:26
PROVIDERS: ATTEND Nurse Practitioner
DX: M46.46 Discitis, unspecified, lumbar region (principal); M86.20 Subacute osteomyelitis, unspecified site

== ENCOUNTER → 2023-01-09 | Outpatient (REF) | payer OTHER ==
[2023-01-09 17:35] LABS: APPEARANCE, URINE HAZY (CLEAR); BACTERIA, URINE AUTO 1+ (NEGATIVE); BILIRUBIN, URINE AUTO NEGATIVE (NEGATIVE); BLOOD, URINE BLOOD NEGATIVE (NEGATIVE); COLOR, URINE YELLOW (YELLOW); GLUCOSE, URINE (UA) AUTO NEGATIVE (NEGATIVE); KETONE, URINE AUTO NEGATIVE (NEGATIVE); LEUKOCYTE ESTERASE, URINE AUTO NEGATIVE (NEGATIVE); MUCUS, URINE SMALL (NEGATIVE); NITRITE, URINE AUTO NEGATIVE (NEGATIVE); PROTEIN, URINE AUTO NEGATIVE (NEGATIVE); RBC, URINE AUTO 1 /HPF (0-3); SPECIFIC GRAVITY URINE AUTO 1.016 (1.002-1.035); SQUAMOUS EPITHELIAL CELL UR AU 13 /HPF (0-6); UROBILINOGEN, URINE AUTO 0.2 mg/dL (0.0-2.0); WBC, URINE AUTO 1 /HPF (0-3)
== END ==
LOC: M SMT 17:12
PROVIDERS: ATTEND Physician Assistant
DX: R32 Unspecified urinary incontinence (principal)

== ENCOUNTER → 2023-02-13 | Outpatient (CLI) | payer OTHER ==
[2023-02-13 15:14] LABS: BASO % 0.4 % (0.0-1.0); EOS # 0.2 10^3/uL (0.0-0.5); EOS % 2.5 % (0.0-3.0); HEMOGLOBIN 11.7 g/dl (12.0-15.5); LYMPH % 20.7 % (24.0-44.0); MEAN CORPUSCULAR HGB CONC 29.3 g/dl (32.0-36.5); MEAN CORPUSCULAR VOLUME 82.1 fl (80.0-96.0); MONO # 0.9 10^3/uL (0.0-0.8); NEUTROPHILS # 6.5 10^3/uL (1.5-8.5); PLATELET COUNT, AUTOMATED 352 10^3/uL (150-450); RED BLOOD COUNT 4.87 10^6/uL (4.00-5.40); WHITE BLOOD COUNT 9.7 10^3/uL (4.0-10.0)
[2023-02-13 15:50] LABS: ERYTHROCYTE SEDIMENTATION RATE 113 mm/hr (0-30)
== END ==
LOC: M PLALAB 09:55
PROVIDERS: ATTEND Nurse Practitioner
DX: M46.46 Discitis, unspecified, lumbar region (principal)

== ENCOUNTER → 2023-02-22 | Outpatient (CLI) | payer OTHER | LOC: M SOG 08:39 | PROVIDERS: ATTEND Orthopaedic Surgery | DX: M19.012 Primary osteoarthritis, left shoulder (principal) ==

== ENCOUNTER → 2023-05-02 | Outpatient (REF) | payer OTHER | LOC: M SFHCPLAZ 13:38 | PROVIDERS: ATTEND Family Medicine | DX: E78.5 Hyperlipidemia, unspecified (principal); E11.9 Type 2 diabetes mellitus without complications; D75.89 Other specified diseases of blood and blood-forming organs; N18.31 Chronic kidney disease, stage 3a; Z53.9 Procedure and treatment not carried out, unspecified reason ==

== ENCOUNTER 2023-07-10 15:10 | Inpatient (IN) | payer MEDICARE, OTHER ==
[~2023-07-10] VITALS: Ht 154.9 cm; Wt 140.1 kg
[~2023-07-10 15:10] MED LIST changes: -FLUT50SP17; +FLUTISP
[2023-07-10 18:32] LABS: BASO % 0.2 % (0.0-1.0); EOS # 0.1 10^3/uL (0.0-0.5); EOS % 0.5 % (0.0-3.0); HEMATOCRIT 39.1 % (36.0-47.0); LYMPH # 1.4 10^3/uL (1.5-5.0); MEAN CORPUSCULAR HEMOGLOBIN 26.7 pg (27.0-33.0); MEAN CORPUSCULAR HGB CONC 30.7 g/dl (32.0-36.5); MEAN CORPUSCULAR VOLUME 87.1 fl (80.0-96.0); MONO % 8.3 % (2.0-8.0); NEUTROPHILS # 9.4 10^3/uL (1.5-8.5); NEUTROPHILS % 78.6 % (36.0-66.0); PLATELET COUNT, AUTOMATED 257 10^3/uL (150-450); RED BLOOD COUNT 4.49 10^6/uL (4.00-5.40)
[2023-07-10 18:38] LABS: ALBUMIN 3.2 G/DL (3.2-5.2); BILIRUBIN,DIRECT 0.1 MG/DL (<0.4); BILIRUBIN,TOTAL 0.3 MG/DL (0.3-1.2); CALCIUM LEVEL 9.3 MG/DL (8.5-10.1); CREATININE FOR GFR 1.08 MG/DL (0.55-1.30); GLOMERULAR FILTRATION RATE 55.9 (>51); POTASSIUM SERUM 4.2 MMOL/L (3.5-5.1); TOTAL PROTEIN 7.1 G/DL (5.7-8.2)
[2023-07-10 19:12] LABS: HEMOGLOBIN A1c 5.9 % (4.0-6.0)
[2023-07-10 19:31] LABS: RSV AMPLIFICATION NEGATIVE (NEGATIVE)
[2023-07-10] MEDS ORDERED: VANCOMYCIN HCL 2,000 MG in D5W 500 ML IV ONE (20:05)
[2023-07-10] MEDS: VANCOMYCIN HCL 1,000 MG, VIAL MATE ADAPTER 1 EACH in D5W 250 ML IV ONE ×2 (21:15→22:22)
[2023-07-10] MEDS ORDERED: OXYB10TA23 PO (22:00)
[2023-07-10] MEDS ORDERED: TIZA10TA PO (22:00)
[2023-07-10] MEDS ORDERED: ELIQ5TAB PO (22:00)
[2023-07-10] MEDS ORDERED: NYST-13 TOP (22:21)
[2023-07-10] MEDS ORDERED: HOME MED LIST COMPLETE! XX SCH (22:25)
[2023-07-10 22:46] LABS: PROCALCITONIN 2.83 ng/ml
[2023-07-10] MEDS: CARVedilol 6.25 MG TAB PO SCH (22:46)
[2023-07-10] MEDS: APIXABAN 5 MG TAB (ELIQUIS) PO SCH (22:46)
[2023-07-10 23:34] VITALS: BP 161/90; TEMP 97.9
[2023-07-10 23:36] VITALS: O2SAT 99
[2023-07-11] MEDS: GABAPENTIN 300 MG CAP PO SCH (00:28)
[2023-07-11] MEDS: DULoxetine 30MG CAPSULE (CYMBALTA) PO SCH (00:28)
[2023-07-11 05:55] VITALS: BP 92/49; TEMP 98.2; O2SAT 96
[2023-07-11 06:11] VITALS: BP 100/50
[2023-07-11 06:42] LABS: HEMATOCRIT 37.5 % (36.0-47.0); HEMOGLOBIN 11.7 g/dl (12.0-15.5); MEAN CORPUSCULAR HEMOGLOBIN 26.7 pg (27.0-33.0); MEAN CORPUSCULAR HGB CONC 31.2 g/dl (32.0-36.5); MEAN CORPUSCULAR VOLUME 85.4 fl (80.0-96.0); PLATELET COUNT, AUTOMATED 239 10^3/uL (150-450); RED BLOOD COUNT 4.39 10^6/uL (4.00-5.40); WHITE BLOOD COUNT 8.9 10^3/uL (4.0-10.0)
[2023-07-11 07:01] LABS: BLOOD UREA NITROGEN 22 MG/DL (9-23); CALCIUM LEVEL 8.9 MG/DL (8.5-10.1); CARBON DIOXIDE LEVEL 27 MMOL/L (20-31); CHLORIDE LEVEL 108 MMOL/L (98-107); CREATININE FOR GFR 0.99 MG/DL (0.55-1.30); GLOMERULAR FILTRATION RATE > 60.0 (>51); GLUCOSE, FASTING 118 MG/DL (60-100); POTASSIUM SERUM 4.1 MMOL/L (3.5-5.1); SODIUM LEVEL 142 MMOL/L (136-145)
[2023-07-11 07:07] LABS: PROCALCITONIN 2.12 ng/ml
[2023-07-11] MEDS ORDERED: CEFTAROLINE FOSAMIL 400 MG in D5W MINI-BAG PLUS 50 ML IV SCH (09:00)
[2023-07-11] MEDS: SPIRONOLACTONE 50 MG TAB PO SCH (09:00)
[2023-07-11] MEDS: OMEPRAZOLE 20MG CAP PO SCH (09:44)
[2023-07-11] MEDS: LACTOBACILLUS ACIDOPHILUS CAP (BACID) PO SCH (09:44)
[2023-07-11] MEDS: oxyBUTYnin *DITROPAN XL* 5 MG TABCR PO SCH (09:44)
[2023-07-11] MEDS: ASCORBIC ACID 500 MG TAB PO SCH (09:45)
[2023-07-11] MEDS: FLUTICASONE PROP 0.05% NASAL SPRAY 16 GM (FLONASE) SCH (09:46)
[2023-07-11] MEDS: NYSTATIN CREAM 15GM TOP SCH (09:47)
[2023-07-11] MEDS: CLOBETASOL PROPIONATE EMOLLIENT 0.05% CR 60 GM TOP SCH (09:48)
[2023-07-11] MEDS: CEFTAROLINE FOSAMIL 600 MG in D5W MINI-BAG PLUS 50 ML IV SCH (11:16)
[2023-07-11] MEDS ORDERED: PROHANCE 279.3MG/ML 5ML VIAL As Ordered ONE (15:13)
[2023-07-11] MEDS ORDERED: PROHANCE 279.3MG/ML 15ML VIAL As Ordered ONE (15:14)
[2023-07-11 19:33] VITALS: BP 98/52; TEMP 97.9; O2SAT 98
[2023-07-11] MEDS: ACETAMINOPHEN TAB 650MG DOSE (2X325MG) PO PRN (20:07)
[2023-07-11] MEDS: tiZANidine 4 MG TAB PO PRN (20:07)
[2023-07-11] MEDS: cefTRIAXone SOD 2 GM in D5W MINI-BAG PLUS 50 ML IV SCH (23:03)
[2023-07-12 00:53] LABS: ANTI-STREPTOLYSIN O QUANT 1609.4 IU/ML (<195)
[2023-07-12 05:13] VITALS: BP 101/52; TEMP 97.9; O2SAT 94
[2023-07-12 06:44] LABS: BASO % 0.4 % (0.0-1.0); EOS # 0.1 10^3/uL (0.0-0.5); EOS % 1.8 % (0.0-3.0); HEMATOCRIT 36.9 % (36.0-47.0); HEMOGLOBIN 11.1 g/dl (12.0-15.5); LYMPH # 1.2 10^3/uL (1.5-5.0); LYMPH % 16.9 % (24.0-44.0); MEAN CORPUSCULAR HEMOGLOBIN 26.1 pg (27.0-33.0); MEAN CORPUSCULAR HGB CONC 30.1 g/dl (32.0-36.5); MEAN CORPUSCULAR VOLUME 86.6 fl (80.0-96.0); MONO # 0.7 10^3/uL (0.0-0.8); MONO % 9.6 % (2.0-8.0); NEUTROPHILS # 5.2 10^3/uL (1.5-8.5); NEUTROPHILS % 70.9 % (36.0-66.0); PLATELET COUNT, AUTOMATED 249 10^3/uL (150-450); RED BLOOD COUNT 4.26 10^6/uL (4.00-5.40); WHITE BLOOD COUNT 7.3 10^3/uL (4.0-10.0)
[2023-07-12 07:01] LABS: ERYTHROCYTE SEDIMENTATION RATE 128 mm/hr (0-30)
[2023-07-12 07:12] LABS: BLOOD UREA NITROGEN 21 MG/DL (9-23); CALCIUM LEVEL 8.6 MG/DL (8.5-10.1); CARBON DIOXIDE LEVEL 27 MMOL/L (20-31); CHLORIDE LEVEL 109 MMOL/L (98-107); CREATININE FOR GFR 1.01 MG/DL (0.55-1.30); GLOMERULAR FILTRATION RATE > 60.0 (>51); GLUCOSE, FASTING 132 MG/DL (60-100); POTASSIUM SERUM 3.9 MMOL/L (3.5-5.1); SODIUM LEVEL 142 MMOL/L (136-145)
[2023-07-12 07:16] LABS: PROCALCITONIN 1.09 ng/ml
[2023-07-12] MEDS: MIRALAX *UNIT DOSE* 17GM PACKET PO SCH (13:46)
[2023-07-12 14:00] VITALS: BP 152/89; TEMP 98.1; O2SAT 99
[2023-07-12 15:42] VITALS: BP 130/65
[2023-07-12] MEDS: LevoFLOXacin 500 MG TABLET PO SCH (15:42)
[2023-07-12 21:19] VITALS: BP 121/55; TEMP 97.9; O2SAT 96
[2023-07-12] MEDS: LACTIC ACID 12% LOTION 225 GM BTL TOP SCH (21:52)
[2023-07-13 06:00] VITALS: BP 113/54; TEMP 98.1; O2SAT 93
[2023-07-13 06:11] LABS: BASO % 0.5 % (0.0-1.0); EOS # 0.3 10^3/uL (0.0-0.5); EOS % 5.4 % (0.0-3.0); HEMATOCRIT 36.7 % (36.0-47.0); HEMOGLOBIN 11.3 g/dl (12.0-15.5); LYMPH # 1.2 10^3/uL (1.5-5.0); LYMPH % 19.8 % (24.0-44.0); MEAN CORPUSCULAR HEMOGLOBIN 26.4 pg (27.0-33.0); MEAN CORPUSCULAR HGB CONC 30.8 g/dl (32.0-36.5); MEAN CORPUSCULAR VOLUME 85.7 fl (80.0-96.0); MONO # 0.8 10^3/uL (0.0-0.8); MONO % 12.6 % (2.0-8.0); NEUTROPHILS # 3.7 10^3/uL (1.5-8.5); PLATELET COUNT, AUTOMATED 275 10^3/uL (150-450); RED BLOOD COUNT 4.28 10^6/uL (4.00-5.40)
[2023-07-13 06:44] LABS: CALCIUM LEVEL 8.9 MG/DL (8.5-10.1); CREATININE FOR GFR 1.06 MG/DL (0.55-1.30); GLOMERULAR FILTRATION RATE 57.1 (>51); POTASSIUM SERUM 4.3 MMOL/L (3.5-5.1)
[2023-07-13] MEDS: AUGMENTIN 875 MG TAB PO SCH (08:56)
[2023-07-13 08:57] VITALS: BP 112/54
[2023-07-13] MEDS ORDERED: AMOX875T2 PO (10:11)
[2023-07-13] MEDS ORDERED: LEVO1TAB39 PO (10:11)
== END 2023-07-13 14:30 | disposition home or self-care (01) | DRG 603 ==
LOC: M ED 15:10 → M ED INP 21:58 → ENRESERV 23:03 → M MS5PR 23:25
PROVIDERS: ADMIT Internal Medicine; ATTEND Internal Medicine
DX: L03.116 Cellulitis of left lower limb (principal); Z68.43 Body mass index [BMI] 50.0-59.9, adult; L88 Pyoderma gangrenosum; L02.411 Cutaneous abscess of right axilla; N18.30 Chronic kidney disease, stage 3 unspecified; E66.01 Morbid (severe) obesity due to excess calories; I87.2 Venous insufficiency (chronic) (peripheral); G62.9 Polyneuropathy, unspecified; G47.33 Obstructive sleep apnea (adult) (pediatric); G89.29 Other chronic pain; R32 Unspecified urinary incontinence; K21.9 Gastro-esophageal reflux disease without esophagitis; R73.03 Prediabetes; Z79.01 Long term (current) use of anticoagulants; Z79.899 Other long term (current) drug therapy; Z91.040 Latex allergy status; Z91.048 Other nonmedicinal substance allergy status; E73.9 Lactose intolerance, unspecified; M17.11 Unilateral primary osteoarthritis, right knee; Z87.81 Personal history of (healed) traumatic fracture; N32.81 Overactive bladder; Z86.711 Personal history of pulmonary embolism; I89.0 Lymphedema, not elsewhere classified; L60.2 Onychogryphosis; B95.4 Other streptococcus as the cause of diseases classified elsewhere; B96.5 Pseudomonas (aeruginosa) (mallei) (pseudomallei) as the cause of diseases classified elsewhere

== ENCOUNTER → 2023-07-29 | Outpatient (CLI) | payer MEDICARE, OTHER ==
[~2023-07-29] MED LIST changes: +ELIQ5TAB PO; +LEVO1TAB39 PO; +NYST-13 TOP; +OXYB10TA23 PO; +TIZA10TA PO
[2023-07-29 13:26] LABS: BASO # 0.1 10^3/uL (0.0-0.2); BASO % 0.7 % (0.0-1.0); EOS # 0.1 10^3/uL (0.0-0.5); EOS % 1.6 % (0.0-3.0); HEMOGLOBIN 12.7 g/dl (12.0-15.5); LYMPH # 2.5 10^3/uL (1.5-5.0); LYMPH % 36.7 % (24.0-44.0); MEAN CORPUSCULAR HEMOGLOBIN 26.8 pg (27.0-33.0); MEAN CORPUSCULAR HGB CONC 30.2 g/dl (32.0-36.5); MEAN CORPUSCULAR VOLUME 88.6 fl (80.0-96.0); MONO # 0.6 10^3/uL (0.0-0.8); MONO % 9.2 % (2.0-8.0); NEUTROPHILS # 3.5 10^3/uL (1.5-8.5); NEUTROPHILS % 51.7 % (36.0-66.0); PLATELET COUNT, AUTOMATED 305 10^3/uL (150-450); RED BLOOD COUNT 4.74 10^6/uL (4.00-5.40); WHITE BLOOD COUNT 6.8 10^3/uL (4.0-10.0)
== END ==
LOC: M PLALAB 11:21
PROVIDERS: ATTEND Internal Medicine Infectious Disease
DX: L03.115 Cellulitis of right lower limb (principal)

== ENCOUNTER → 2023-07-29 | Outpatient (CLI) | payer MEDICARE, OTHER | LOC: M WHC 10:41 | PROVIDERS: ATTEND Family Medicine | DX: Z12.39 Encounter for other screening for malignant neoplasm of breast (principal) ==

== ENCOUNTER → 2023-08-29 | Outpatient (CLI) | payer MEDICARE, OTHER | LOC: M WHC 13:51 | PROVIDERS: ATTEND Family Medicine | DX: Z12.31 Encounter for screening mammogram for malignant neoplasm of breast (principal); Z12.39 Encounter for other screening for malignant neoplasm of breast ==

== ENCOUNTER → 2023-09-06 | Outpatient (CLI) | payer MEDICARE, OTHER ==
[2023-09-06 10:55] LABS: BASO % 0.4 % (0.0-1.0); EOS # 0.2 10^3/uL (0.0-0.5); EOS % 2.2 % (0.0-3.0); HEMATOCRIT 42.5 % (36.0-47.0); HEMOGLOBIN 12.9 g/dl (12.0-15.5); LYMPH # 2.5 10^3/uL (1.5-5.0); LYMPH % 25.1 % (24.0-44.0); MEAN CORPUSCULAR HGB CONC 30.4 g/dl (32.0-36.5); MEAN CORPUSCULAR VOLUME 88.9 fl (80.0-96.0); MONO # 0.9 10^3/uL (0.0-0.8); NEUTROPHILS # 6.2 10^3/uL (1.5-8.5); NEUTROPHILS % 62.9 % (36.0-66.0); PLATELET COUNT, AUTOMATED 360 10^3/uL (150-450); RED BLOOD COUNT 4.78 10^6/uL (4.00-5.40); WHITE BLOOD COUNT 9.9 10^3/uL (4.0-10.0)
[2023-09-06 11:29] LABS: C REACTIVE PROTEIN QUANTITATIV 3.7 MG/DL (<1.0)
[2023-09-06 11:30] LABS: CHOLESTEROL RISK RATIO 2.95 (<5); LDL CHOLESTEROL 53.8 MG/DL (<100)
[2023-09-06 11:32] LABS: FERRITIN 40.7 NG/ML (7.3-270.7)
== END ==
LOC: M PLALAB 08:35
PROVIDERS: ATTEND Family Medicine
DX: E78.5 Hyperlipidemia, unspecified (principal); D50.9 Iron deficiency anemia, unspecified; K76.0 Fatty (change of) liver, not elsewhere classified

== ENCOUNTER → 2023-09-10 | Outpatient (CLI) | payer MEDICARE, OTHER | LOC: M SOG 14:12 | PROVIDERS: ATTEND Physician Assistant | DX: M19.012 Primary osteoarthritis, left shoulder (principal) ==

== ENCOUNTER → 2023-11-28 | Outpatient (CLI) | payer MEDICARE, OTHER ==
[~2023-11-28] MED LIST changes: +AMMO12CR7 TOP; +AQUAOIN12 TOP; +DOXY100C3 PO; -FLUTISP; +FLUTISP NARES; +JUVEPOW4 PO; +POLY17PO18 PO; +RA A500C4 PO; +ROSU10TA61 PO; +SENN-83 PO
[2023-11-28 17:58] LABS: BASO # 0.1 10^3/uL (0.0-0.2); BASO % 0.7 % (0.0-1.0); EOS # 0.2 10^3/uL (0.0-0.5); EOS % 2.7 % (0.0-3.0); HEMATOCRIT 38.5 % (36.0-47.0); HEMOGLOBIN 11.7 g/dl (12.0-15.5); LYMPH # 2.4 10^3/uL (1.5-5.0); LYMPH % 33.6 % (24.0-44.0); MEAN CORPUSCULAR HEMOGLOBIN 26.7 pg (27.0-33.0); MEAN CORPUSCULAR HGB CONC 30.4 g/dl (32.0-36.5); MEAN CORPUSCULAR VOLUME 87.7 fl (80.0-96.0); MONO # 0.6 10^3/uL (0.0-0.8); NEUTROPHILS # 3.8 10^3/uL (1.5-8.5); NEUTROPHILS % 53.7 % (36.0-66.0); PLATELET COUNT, AUTOMATED 284 10^3/uL (150-450); RED BLOOD COUNT 4.39 10^6/uL (4.00-5.40); WHITE BLOOD COUNT 7.1 10^3/uL (4.0-10.0)
[2023-11-28 18:15] LABS: ERYTHROCYTE SEDIMENTATION RATE 72 mm/hr (0-30)
[2023-11-28 18:31] LABS: C REACTIVE PROTEIN QUANTITATIV < 0.40 MG/DL (<1.0)
[2023-11-28 18:33] LABS: ALBUMIN 3.5 G/DL (3.2-5.2); ALKALINE PHOSPHATASE 126 U/L (46-116); ALT/SGPT 14 U/L (7.0-40); AST/SGOT < 8 U/L (<34); BILIRUBIN,TOTAL 0.3 MG/DL (0.3-1.2); BLOOD UREA NITROGEN 40 MG/DL (9-23); CALCIUM LEVEL 9.3 MG/DL (8.5-10.1); CARBON DIOXIDE LEVEL 32 MMOL/L (20-31); CHLORIDE LEVEL 103 MMOL/L (98-107); CREATININE FOR GFR 0.98 MG/DL (0.55-1.30); GLOMERULAR FILTRATION RATE > 60.0 (>51); GLUCOSE, FASTING 83 MG/DL (60-100); POTASSIUM SERUM 4.7 MMOL/L (3.5-5.1); SODIUM LEVEL 139 MMOL/L (136-145); TOTAL PROTEIN 6.6 G/DL (5.7-8.2)
== END ==
LOC: M PLALAB 15:20
PROVIDERS: ATTEND Physician Assistant Medical
DX: L08.9 Local infection of the skin and subcutaneous tissue, unspecified (principal); R78.81 Bacteremia; D63.8 Anemia in other chronic diseases classified elsewhere; I10 Essential (primary) hypertension

== ENCOUNTER → 2023-11-29 | Outpatient (REF) | payer MEDICARE, OTHER ==
[2023-11-29 18:41] LABS: APPEARANCE, URINE CLOUDY (CLEAR); BACTERIA, URINE AUTO 1+ (NEGATIVE); BILIRUBIN, URINE AUTO NEGATIVE (NEGATIVE); BLOOD, URINE BLOOD NEGATIVE (NEGATIVE); COLOR, URINE YELLOW (YELLOW); GLUCOSE, URINE (UA) AUTO NEGATIVE (NEGATIVE); KETONE, URINE AUTO NEGATIVE (NEGATIVE); LEUKOCYTE ESTERASE, URINE AUTO 2+ (NEGATIVE); NITRITE, URINE AUTO NEGATIVE (NEGATIVE); PROTEIN, URINE AUTO NEGATIVE (NEGATIVE); RBC, URINE AUTO 2 /HPF (0-3); SPECIFIC GRAVITY URINE AUTO 1.009 (1.002-1.035); SQUAMOUS EPITHELIAL CELL UR AU 9 /HPF (0-6); UROBILINOGEN, URINE AUTO 0.2 mg/dL (0.0-2.0); WBC, URINE AUTO 13 /HPF (0-3)
== END ==
LOC: M SMT 16:57
PROVIDERS: ATTEND Physician Assistant
DX: R32 Unspecified urinary incontinence (principal)

== ENCOUNTER 2023-12-25 10:54 | Emergency (ER) | payer MEDICARE, OTHER ==
[~2023-12-25] VITALS: Ht 157.5 cm; Wt 143.0 kg
[2023-12-25 15:03] VITALS: BP 115/56; TEMP 97.3; O2SAT 97
== END 2023-12-25 15:40 | disposition home or self-care (01) ==
LOC: M ED 10:54 → EDBD 10:54 → M ED 15:40
DX: S81.801A Unspecified open wound, right lower leg, initial encounter (principal); X58.XXXA Exposure to other specified factors, initial encounter; Y92.89 Other specified places as the place of occurrence of the external cause; Y93.89 Activity, other specified; Y99.8 Other external cause status; E11.40 Type 2 diabetes mellitus with diabetic neuropathy, unspecified; I25.2 Old myocardial infarction; N18.30 Chronic kidney disease, stage 3 unspecified; D64.9 Anemia, unspecified; Z86.711 Personal history of pulmonary embolism; Z86.718 Personal history of other venous thrombosis and embolism; Z79.01 Long term (current) use of anticoagulants; Z79.899 Other long term (current) drug therapy; Z91.011 Allergy to milk products; Z91.040 Latex allergy status

== ENCOUNTER → 2024-01-07 | Outpatient (REF) | payer MEDICARE | LOC: M SFHCPLAZ 16:26 | PROVIDERS: ATTEND Student in an Organized Health Care Education/Training Program | DX: E55.9 Vitamin D deficiency, unspecified (principal); D50.9 Iron deficiency anemia, unspecified; E78.5 Hyperlipidemia, unspecified ==

== ENCOUNTER → 2024-01-08 | Outpatient (CLI) | payer MEDICARE ==
[2024-01-08 11:02] LABS: BASO # 0.1 10^3/uL (0.0-0.2); BASO % 0.4 % (0.0-1.0); EOS # 0.1 10^3/uL (0.0-0.5); EOS % 1.2 % (0.0-3.0); HEMATOCRIT 41.5 % (36.0-47.0); HEMOGLOBIN 12.3 g/dl (12.0-15.5); LYMPH # 2.2 10^3/uL (1.5-5.0); LYMPH % 19.9 % (24.0-44.0); MEAN CORPUSCULAR HEMOGLOBIN 26.1 pg (27.0-33.0); MEAN CORPUSCULAR HGB CONC 29.6 g/dl (32.0-36.5); MEAN CORPUSCULAR VOLUME 88.1 fl (80.0-96.0); MONO # 0.7 10^3/uL (0.0-0.8); MONO % 6.5 % (2.0-8.0); NEUTROPHILS % 71.4 % (36.0-66.0); PLATELET COUNT, AUTOMATED 416 10^3/uL (150-450); RED BLOOD COUNT 4.71 10^6/uL (4.00-5.40); WHITE BLOOD COUNT 11.1 10^3/uL (4.0-10.0)
[2024-01-08 11:27] LABS: ALBUMIN 3.4 G/DL (3.2-5.2); BILIRUBIN,TOTAL 0.3 MG/DL (0.3-1.2); CALCIUM LEVEL 9.8 MG/DL (8.5-10.1); CREATININE FOR GFR 1.06 MG/DL (0.55-1.30); GLOMERULAR FILTRATION RATE 57.1 (>51); POTASSIUM SERUM 4.5 MMOL/L (3.5-5.1); TOTAL PROTEIN 7.6 G/DL (5.7-8.2)
[2024-01-08 11:28] LABS: FERRITIN 50.3 NG/ML (7.3-270.7); PTH INTACT 63.8 PG/ML (18.5-88.0)
[2024-01-08 11:29] LABS: TOTAL 25(OH) VITAMIN D 133.1 NG/ML (20.0-100.0)
== END ==
LOC: M PLALAB 08:20
PROVIDERS: ATTEND Family Medicine
DX: D50.9 Iron deficiency anemia, unspecified (principal); E55.9 Vitamin D deficiency, unspecified; I10 Essential (primary) hypertension

== ENCOUNTER → 2024-01-08 | Outpatient (CLI) | payer MEDICARE ==
[2024-01-08 11:25] LABS: CHOLESTEROL RISK RATIO 3.35 (<5); HDL CHOLESTEROL 36.7 MG/DL (>40); LDL CHOLESTEROL 64.7 MG/DL (<100); NON-HDL-C 86.3 MG/DL
== END ==
LOC: M PLALAB 08:22
PROVIDERS: ATTEND Student in an Organized Health Care Education/Training Program
DX: E55.9 Vitamin D deficiency, unspecified (principal); D50.9 Iron deficiency anemia, unspecified; E87.5 Hyperkalemia; Z79.899 Other long term (current) drug therapy

== ENCOUNTER → 2024-01-16 | Outpatient (REF) | payer MEDICARE | LOC: M SFHCPLAZ 15:49 | PROVIDERS: ATTEND Family Medicine | DX: D50.9 Iron deficiency anemia, unspecified (principal); E55.9 Vitamin D deficiency, unspecified; I10 Essential (primary) hypertension; E78.5 Hyperlipidemia, unspecified ==

== ENCOUNTER → 2024-05-11 | Outpatient (CLI) | payer MEDICARE, MEDICAID ==
[~2024-05-11] MED LIST changes: +GABA-1172 PO; -GABA-282 PO; +SENN-187 PO; -SENN-83 PO
[2024-05-11 10:19] LABS: BASO % 0.3 % (0.0-1.0); EOS # 0.2 10^3/uL (0.0-0.5); EOS % 3.6 % (0.0-3.0); HEMATOCRIT 40.7 % (36.0-47.0); HEMOGLOBIN 12.2 g/dl (12.0-15.5); LYMPH # 1.8 10^3/uL (1.5-5.0); MEAN CORPUSCULAR HEMOGLOBIN 26.2 pg (27.0-33.0); MEAN CORPUSCULAR VOLUME 87.5 fl (80.0-96.0); MONO # 0.7 10^3/uL (0.0-0.8); MONO % 10.4 % (2.0-8.0); NEUTROPHILS # 3.7 10^3/uL (1.5-8.5); NEUTROPHILS % 57.5 % (36.0-66.0); PLATELET COUNT, AUTOMATED 287 10^3/uL (150-450); RED BLOOD COUNT 4.65 10^6/uL (4.00-5.40); WHITE BLOOD COUNT 6.4 10^3/uL (4.0-10.0)
[2024-05-11 10:31] LABS: INR 1.11; PARTIAL THROMBOPLASTIN TIME 46.4 SECONDS (24.8-34.2); PROTHROMBIN TIME 14.6 SECONDS (12.5-14.5)
[2024-05-11 10:48] LABS: FERRITIN 30.1 NG/ML (7.3-270.7)
[2024-05-11 10:49] LABS: ALBUMIN 3.6 G/DL (3.2-5.2); ALKALINE PHOSPHATASE 127 U/L (35-104); ALT/SGPT 15 U/L (7.0-40); AST/SGOT < 8 U/L (<34); BILIRUBIN,TOTAL 0.4 MG/DL (0.3-1.2); BLOOD UREA NITROGEN 26 MG/DL (9-23); CALCIUM LEVEL 10.4 MG/DL (8.5-10.1); CARBON DIOXIDE LEVEL 33 MMOL/L (20-31); CHLORIDE LEVEL 103 MMOL/L (98-107); CHOLESTEROL LEVEL 139 MG/DL (<200); CHOLESTEROL RISK RATIO 2.98 (<5); CREATININE FOR GFR 0.91 MG/DL (0.55-1.30); GLOMERULAR FILTRATION RATE > 60.0 (>51); GLUCOSE, FASTING 132 MG/DL (60-100); HDL CHOLESTEROL 46.6 MG/DL (>40); LDL CHOLESTEROL 67.6 MG/DL (<100); NON-HDL-C 92.4 MG/DL; POTASSIUM SERUM 4.4 MMOL/L (3.5-5.1); PTH INTACT 56.9 PG/ML (18.5-88.0); SODIUM LEVEL 143 MMOL/L (136-145); TOTAL PROTEIN 7.2 G/DL (5.7-8.2); TRIGLYCERIDES LEVEL 124 MG/DL (<150)
[2024-05-11 10:50] LABS: TOTAL 25(OH) VITAMIN D 97.3 NG/ML (20.0-100.0)
== END ==
LOC: M PLALAB 08:43
PROVIDERS: ATTEND Family Medicine
DX: D50.9 Iron deficiency anemia, unspecified (principal); E55.9 Vitamin D deficiency, unspecified; E78.5 Hyperlipidemia, unspecified; Z86.711 Personal history of pulmonary embolism; Z79.01 Long term (current) use of anticoagulants

== ENCOUNTER 2024-06-05 10:57 | Emergency (ER) | payer MEDICARE, MEDICAID ==
[~2024-06-05] VITALS: Ht 157.5 cm; Wt 146.2 kg
[2024-06-05 14:26] LABS: BASO % 0.5 % (0.0-1.0); EOS # 0.1 10^3/uL (0.0-0.5); EOS % 1.7 % (0.0-3.0); HEMATOCRIT 44.3 % (36.0-47.0); HEMOGLOBIN 13.8 g/dl (12.0-15.5); LYMPH # 1.7 10^3/uL (1.5-5.0); LYMPH % 22.6 % (24.0-44.0); MEAN CORPUSCULAR HEMOGLOBIN 26.7 pg (27.0-33.0); MEAN CORPUSCULAR HGB CONC 31.2 g/dl (32.0-36.5); MEAN CORPUSCULAR VOLUME 85.9 fl (80.0-96.0); MONO # 0.7 10^3/uL (0.0-0.8); MONO % 9.2 % (2.0-8.0); NEUTROPHILS % 65.7 % (36.0-66.0); PLATELET COUNT, AUTOMATED 302 10^3/uL (150-450); RED BLOOD COUNT 5.16 10^6/uL (4.00-5.40); WHITE BLOOD COUNT 7.6 10^3/uL (4.0-10.0)
[2024-06-05 14:53] LABS: C REACTIVE PROTEIN QUANTITATIV 1.18 MG/DL (<1.0); CALCIUM LEVEL 10.1 MG/DL (8.5-10.1); CREATININE FOR GFR 1.15 MG/DL (0.55-1.30); GLOMERULAR FILTRATION RATE 51.8 (>51); POTASSIUM SERUM 4.9 MMOL/L (3.5-5.1)
[2024-06-05 16:19] VITALS: BP 151/74; TEMP 97.1; O2SAT 96
== END 2024-06-05 17:05 | disposition home or self-care (01) ==
LOC: EDBD 10:57 → M ED 10:57
DX: I87.311 Chronic venous hypertension (idiopathic) with ulcer of right lower extremity (principal); E11.9 Type 2 diabetes mellitus without complications; N18.9 Chronic kidney disease, unspecified; Z91.040 Latex allergy status; Z91.011 Allergy to milk products; Z91.048 Other nonmedicinal substance allergy status; Z79.1 Long term (current) use of non-steroidal anti-inflammatories (NSAID); Z79.01 Long term (current) use of anticoagulants; Z79.899 Other long term (current) drug therapy

== ENCOUNTER → 2024-06-11 | Outpatient (CLI) | payer MEDICARE, MEDICAID ==
[~2024-06-11] VITALS: Ht 157.5 cm; Wt 146.4 kg
[~2024-06-11] MED LIST changes: +ALBUTEROL SULFATE 2.5MG/0.5ML INH NEB SOLN INH PRN; +EPINEPHrine INJ 1 MG/ML 1ML AMP IM PRN; +diphenhydrAMINE 50MG/ML VIAL IV PRN; +methylPREDNISolone 125MG 2ML VIAL IV PRN
[2024-06-11] MEDS: IRON SUCROSE 500 MG in NS 250 ML OVER 4 HRS IV ONE (08:21)
[2024-06-11 08:24] VITALS: BP 139/65; O2SAT 96
[2024-06-11 10:00] VITALS: BP 101/54; O2SAT 98
[2024-06-11 11:00] VITALS: BP 111/61; O2SAT 98
[2024-06-11 12:29] VITALS: BP 128/68; O2SAT 97
== END ==
LOC: M INFU 07:25
PROVIDERS: ATTEND Family Medicine
DX: D50.9 Iron deficiency anemia, unspecified (principal); Z91.040 Latex allergy status; Z91.011 Allergy to milk products; Z91.048 Other nonmedicinal substance allergy status
CPT/HCPCS: 96365; 96366; J1756

== ENCOUNTER 2024-06-19 08:00 | Outpatient (CLI) | payer MEDICARE, MEDICAID ==
[2024-06-19 08:00] VITALS: BP 137/62; O2SAT 95
[2024-06-19] MEDS: IRON SUCROSE 500 MG in NS 250 ML OVER 4 HRS IV ONE (08:41)
[2024-06-19 09:00] VITALS: BP 128/62; O2SAT 95
[2024-06-19 10:00] VITALS: BP 140/78; O2SAT 95
[2024-06-19 11:30] VITALS: BP 155/60; O2SAT 98
[2024-06-19 13:10] VITALS: BP 165/86; O2SAT 98
== END 2024-06-19 13:35 | disposition home or self-care (01) ==
LOC: M INFU 08:00
PROVIDERS: ATTEND Family Medicine
DX: D50.9 Iron deficiency anemia, unspecified (principal); Z91.011 Allergy to milk products; Z91.040 Latex allergy status
CPT/HCPCS: 96365; 96366; J1756

== ENCOUNTER → 2024-08-20 | Outpatient (REF) | payer MEDICARE, MEDICAID ==
[~2024-08-20] MED LIST changes: -ALBUTEROL SULFATE 2.5MG/0.5ML INH NEB SOLN INH PRN; -EPINEPHrine INJ 1 MG/ML 1ML AMP IM PRN; -diphenhydrAMINE 50MG/ML VIAL IV PRN; -methylPREDNISolone 125MG 2ML VIAL IV PRN
[2024-08-20 19:13] LABS: AMORPHOUS SEDIMENT SMALL (NEGATIVE); APPEARANCE, URINE CLOUDY (CLEAR); BACTERIA, URINE AUTO 2+ (NEGATIVE); BILIRUBIN, URINE AUTO NEGATIVE (NEGATIVE); BLOOD, URINE BLOOD NEGATIVE (NEGATIVE); COLOR, URINE YELLOW (YELLOW); GLUCOSE, URINE (UA) AUTO NEGATIVE (NEGATIVE); KETONE, URINE AUTO NEGATIVE (NEGATIVE); LEUKOCYTE ESTERASE, URINE AUTO 3+ (NEGATIVE); NITRITE, URINE AUTO NEGATIVE (NEGATIVE); PROTEIN, URINE AUTO NEGATIVE (NEGATIVE); RBC, URINE AUTO 2 /HPF (0-3); SQUAMOUS EPITHELIAL CELL UR AU 5 /HPF (0-6); UROBILINOGEN, URINE AUTO 0.2 mg/dL (0.0-2.0); WBC, URINE AUTO 2 /HPF (0-3)
== END ==
LOC: M SMT 17:24
PROVIDERS: ATTEND Physician Assistant
DX: N39.41 Urge incontinence (principal)

== ENCOUNTER → 2024-08-31 | Outpatient (CLI) | payer MEDICARE, MEDICAID | LOC: M WHC 13:52 | PROVIDERS: ATTEND Family Medicine | DX: Z12.31 Encounter for screening mammogram for malignant neoplasm of breast (principal); M85.851 Other specified disorders of bone density and structure, right thigh; R92.313 Mammographic fatty tissue density, bilateral breasts ==

== ENCOUNTER → 2024-09-11 | Outpatient (CLI) | payer MEDICARE, MEDICAID ==
[2024-09-11 10:58] LABS: BASO % 0.3 % (0.0-1.0); EOS # 0.2 10^3/uL (0.0-0.5); EOS % 2.5 % (0.0-3.0); HEMATOCRIT 41.6 % (36.0-47.0); HEMOGLOBIN 12.7 g/dl (12.0-15.5); MEAN CORPUSCULAR HGB CONC 30.5 g/dl (32.0-36.5); MEAN CORPUSCULAR VOLUME 91.6 fl (80.0-96.0); MONO # 0.6 10^3/uL (0.0-0.8); MONO % 8.7 % (2.0-8.0); NEUTROPHILS # 4.4 10^3/uL (1.5-8.5); NEUTROPHILS % 60.1 % (36.0-66.0); PLATELET COUNT, AUTOMATED 272 10^3/uL (150-450); RED BLOOD COUNT 4.54 10^6/uL (4.00-5.40); WHITE BLOOD COUNT 7.2 10^3/uL (4.0-10.0)
[2024-09-11 11:19] LABS: ALBUMIN 3.6 G/DL (3.2-5.2); BILIRUBIN,TOTAL 0.3 MG/DL (0.3-1.2); CALCIUM LEVEL 9.5 MG/DL (8.5-10.1); CREATININE FOR GFR 0.89 MG/DL (0.55-1.30); GLOMERULAR FILTRATION RATE 75.6 (>51); POTASSIUM SERUM 4.5 MMOL/L (3.5-5.1); PTH INTACT 68.7 PG/ML (18.5-88.0)
[2024-09-11 11:21] LABS: TOTAL 25(OH) VITAMIN D 119.9 NG/ML (20.0-100.0)
[2024-09-11 11:22] LABS: FERRITIN 112.1 NG/ML (7.3-270.7)
== END ==
LOC: M PLALAB 09:15
PROVIDERS: ATTEND Family Medicine
DX: D50.9 Iron deficiency anemia, unspecified (principal); E55.9 Vitamin D deficiency, unspecified; I10 Essential (primary) hypertension

== ENCOUNTER 2024-10-16 13:21 | Emergency (ER) | payer MEDICARE, MEDICAID ==
[~2024-10-16] VITALS: Ht 157.5 cm; Wt 145.4 kg
[~2024-10-16 13:21] MED LIST changes: +AMMO12CR4 TOP; -AMMO12CR7 TOP; -NYST-13 TOP; +NYST0.1C TOP
[2024-10-16 13:25] VITALS: BP 158/71; TEMP 99.2; O2SAT 94
[2024-10-16] MEDS ORDERED: CLEO300C2 PO (22:30)
== END 2024-10-16 13:44 | disposition left against medical advice (07) ==
LOC: M ED 13:21
DX: Z53.21 Procedure and treatment not carried out due to patient leaving prior to being seen by health care provider (principal)

== ENCOUNTER 2024-10-16 13:58 | Emergency (ER) | payer MEDICARE, MEDICAID ==
[~2024-10-16] VITALS: Ht 157.5 cm; Wt 146.6 kg
[2024-10-16 14:09] VITALS: TEMP 96.8
[2024-10-16 16:08] LABS: BASO % 0.3 % (0.0-1.0); EOS # 0.2 10^3/uL (0.0-0.5); EOS % 1.8 % (0.0-3.0); HEMOGLOBIN 13.2 g/dl (12.0-15.5); MEAN CORPUSCULAR HGB CONC 30.7 g/dl (32.0-36.5); MEAN CORPUSCULAR VOLUME 91.1 fl (80.0-96.0); MONO % 8.7 % (2.0-8.0); NEUTROPHILS # 8.5 10^3/uL (1.5-8.5); NEUTROPHILS % 71.8 % (36.0-66.0); PLATELET COUNT, AUTOMATED 345 10^3/uL (150-450); RED BLOOD COUNT 4.72 10^6/uL (4.00-5.40); WHITE BLOOD COUNT 11.9 10^3/uL (4.0-10.0)
[2024-10-16 16:26] LABS: C REACTIVE PROTEIN QUANTITATIV 2.61 MG/DL (<1.0); CALCIUM LEVEL 9.5 MG/DL (8.5-10.1); CREATININE FOR GFR 1.09 MG/DL (0.55-1.30); GLOMERULAR FILTRATION RATE 59.3 (>51)
[2024-10-16 16:27] LABS: ERYTHROCYTE SEDIMENTATION RATE 101 mm/hr (0-30)
[2024-10-16 22:30] VITALS: BP 117/55
[2024-10-16] MEDS ORDERED: CLEO300C2 PO (22:30)
[2024-10-16 22:46] VITALS: O2SAT 98
[2024-10-16] MEDS: CLINDAMYCIN 150MG CAPSULE PO ONE (22:55)
== END 2024-10-16 23:09 | disposition home or self-care (01) ==
LOC: M ED 13:58
DX: M79.604 Pain in right leg (principal); E11.9 Type 2 diabetes mellitus without complications; I25.2 Old myocardial infarction; G47.33 Obstructive sleep apnea (adult) (pediatric); N18.9 Chronic kidney disease, unspecified; Z91.040 Latex allergy status; Z91.011 Allergy to milk products; Z79.1 Long term (current) use of non-steroidal anti-inflammatories (NSAID); Z79.01 Long term (current) use of anticoagulants; Z79.899 Other long term (current) drug therapy

== ENCOUNTER → 2024-10-21 | Outpatient (REF) | payer MEDICARE, MEDICAID ==
[~2024-10-21] MED LIST changes: +CLEO300C2 PO
[2024-10-21 17:28] LABS: APPEARANCE, URINE CLEAR (CLEAR); BACTERIA, URINE AUTO 1+ (NEGATIVE); BILIRUBIN, URINE AUTO NEGATIVE (NEGATIVE); BLOOD, URINE BLOOD NEGATIVE (NEGATIVE); COLOR, URINE STRAW (YELLOW); GLUCOSE, URINE (UA) AUTO NEGATIVE (NEGATIVE); KETONE, URINE AUTO NEGATIVE (NEGATIVE); LEUKOCYTE ESTERASE, URINE AUTO TRACE (NEGATIVE); NITRITE, URINE AUTO NEGATIVE (NEGATIVE); PROTEIN, URINE AUTO NEGATIVE (NEGATIVE); RBC, URINE AUTO 2 /HPF (0-3); SQUAMOUS EPITHELIAL CELL UR AU 2 /HPF (0-6); UROBILINOGEN, URINE AUTO 0.2 mg/dL (0.0-2.0); WBC, URINE AUTO 1 /HPF (0-3)
== END ==
LOC: M SMT 16:53
PROVIDERS: ATTEND Physician Assistant
DX: N39.41 Urge incontinence (principal)

== ENCOUNTER 2024-12-17 17:59 | Emergency (ER) | payer MEDICARE, MEDICAID ==
[~2024-12-17] VITALS: Ht 157.5 cm; Wt 159.1 kg
[2024-12-17 19:49] LABS: BASO # 0.0 10^3/uL (0.0-0.2); BASO % 0.5 % (0.0-1.0); EOS # 0.3 10^3/uL (0.0-0.5); EOS % 4.9 % (0.0-3.0); LYMPH # 2.1 10^3/uL (1.5-5.0); LYMPH % 34.7 % (24.0-44.0); MONO # 0.6 10^3/uL (0.0-0.8); MONO % 10.2 % (2.0-8.0); NEUTROPHILS # 3.0 10^3/uL (1.5-8.5); NEUTROPHILS % 49.4 % (36.0-66.0); PLATELET COUNT, AUTOMATED 246 10^3/uL (150-450)
[2024-12-17 20:02] LABS: INR 1.07
[2024-12-17 20:13] LABS: ERYTHROCYTE SEDIMENTATION RATE 91 mm/hr (0-30)
[2024-12-17 20:17] LABS: ALT/SGPT 20.0 U/L (7.0-40); AST/SGOT 16.0 U/L (<34); C REACTIVE PROTEIN QUANTITATIV 1.37 MG/DL (<1.0); CALCIUM LEVEL 9.3 MG/DL (8.5-10.1); CARBON DIOXIDE LEVEL 28.0 MMOL/L (20-31); CHLORIDE LEVEL 103.0 MMOL/L (98-107); CREATININE FOR GFR 1.13 MG/DL (0.55-1.30); GLOMERULAR FILTRATION RATE 56.8 (>51); POTASSIUM SERUM 3.9 MMOL/L (3.5-5.1); SODIUM LEVEL 144.0 MMOL/L (136-145)
[2024-12-18] MEDS ORDERED: GENT1OI TOP SA (03:49)
[2024-12-18] MEDS ORDERED: TRIA1OI TOP SA (03:49)
[2024-12-18] MEDS ORDERED: VITA500054 PO (03:49)
[2024-12-18] MEDS: ACETAMINOPHEN 500 MG TAB PO ONE (04:28)
[2024-12-18] MEDS: NAPROXEN 250 MG TAB PO ONE (04:28)
[2024-12-18 07:29] VITALS: BP 137/61
[2024-12-18] MEDS ORDERED: ACET500P3 PO (07:56)
[2024-12-18 08:34] VITALS: TEMP 96.7; O2SAT 99
== END 2024-12-18 08:45 | disposition home or self-care (01) ==
LOC: M ED 17:59 → EDBD 17:59 → M ED 12-18 08:45
DX: M19.071 Primary osteoarthritis, right ankle and foot (principal); M19.072 Primary osteoarthritis, left ankle and foot; E28.2 Polycystic ovarian syndrome; N18.9 Chronic kidney disease, unspecified; Z91.040 Latex allergy status; Z91.011 Allergy to milk products; Z79.1 Long term (current) use of non-steroidal anti-inflammatories (NSAID); Z79.01 Long term (current) use of anticoagulants; Z79.899 Other long term (current) drug therapy; F33.1 Major depressive disorder, recurrent, moderate; F41.9 Anxiety disorder, unspecified

== ENCOUNTER 2025-01-08 16:41 | Inpatient (IN) | payer MEDICARE, MEDICAID ==
[~2025-01-08] VITALS: Ht 167.6 cm; Wt 144.6 kg
[~2025-01-08 16:41] MED LIST changes: +ACET500P3 PO; +GENT1OI TOP SA; +TRIA1OI TOP SA; +VITA500054 PO
[2025-01-08 17:47] LABS: BASO # 0.0 10^3/uL (0.0-0.2); BASO % 0.4 % (0.0-1.0); EOS # 0.2 10^3/uL (0.0-0.5); EOS % 2.3 % (0.0-3.0); LYMPH # 1.6 10^3/uL (1.5-5.0); LYMPH % 19.9 % (24.0-44.0); MONO # 0.8 10^3/uL (0.0-0.8); MONO % 10.0 % (2.0-8.0); NEUTROPHILS # 5.5 10^3/uL (1.5-8.5); NEUTROPHILS % 67.0 % (36.0-66.0); PLATELET COUNT, AUTOMATED 292 10^3/uL (150-450)
[2025-01-08 17:53] LABS: ERYTHROCYTE SEDIMENTATION RATE 105 mm/hr (0-30)
[2025-01-08 18:09] LABS: C REACTIVE PROTEIN QUANTITATIV 2.12 MG/DL (<1.0)
[2025-01-08 18:19] LABS: ALT/SGPT 16.0 U/L (7.0-40); AST/SGOT 20.0 U/L (<34); CALCIUM LEVEL 9.5 MG/DL (8.5-10.1); CARBON DIOXIDE LEVEL 28.0 MMOL/L (20-31); CHLORIDE LEVEL 102.0 MMOL/L (98-107); CREATININE FOR GFR 1.04 MG/DL (0.55-1.30); GLOMERULAR FILTRATION RATE 62.7 (>51); POTASSIUM SERUM 4.5 MMOL/L (3.5-5.1); SODIUM LEVEL 142.0 MMOL/L (136-145)
[2025-01-08] MEDS: VANCOMYCIN HCL 2,000 MG, VIAL MATE ADAPTER 1 EACH in NS 500 ML IV ONE (18:45)
[2025-01-08] MEDS: GABAPENTIN 300 MG CAP PO SCH (21:00)
[2025-01-08] MEDS ORDERED: GABAPENTIN 100 MG CAP PO PRN (21:10)
[2025-01-08] MEDS ORDERED: SCOPOLAMINE 1MG TRANSDERMAL PATCH TOP PRN (21:15)
[2025-01-08] MEDS ORDERED: diphenhydrAMINE 50 MG/ML VIAL IV PRN (21:15)
[2025-01-08 21:29] LABS: MAGNESIUM LEVEL 2.1 MG/DL (1.8-2.4)
[2025-01-08] MEDS ORDERED: PROHANCE 279.3MG/ML 5ML VIAL As Ordered ONE (23:15)
[2025-01-08] MEDS ORDERED: PROHANCE 279.3MG/ML 15ML VIAL As Ordered ONE (23:15)
[2025-01-09 00:35] VITALS: BP 148/96; TEMP 97.2; O2SAT 96
[2025-01-09] MEDS: PIPERACILLIN/TAZOBACTAM SOD 4.5 GM in DEXTROSE 5% (D5W) ADV/MINI-BAG 50 ML IV SCH ×2 (00:36→16:46)
[2025-01-09] MEDS: ACETAMINOPHEN 500 MG TAB PO PRN (00:37)
[2025-01-09] MEDS: LR 1,000 ML IV SCH (02:23)
[2025-01-09] MEDS ORDERED: OXYB15TA14 PO (02:58)
[2025-01-09] MEDS ORDERED: VITA200012 PO (02:58)
[2025-01-09] MEDS ORDERED: NSIRR1000 TOP (02:58)
[2025-01-09] MEDS ORDERED: AMOX875T2 PO (02:58)
[2025-01-09] MEDS ORDERED: NATU400C6 PO (02:58)
[2025-01-09] MEDS ORDERED: HOME MED LIST COMPLETE! XX SCH (03:00)
[2025-01-09] MEDS ORDERED: MIRALAX *UNIT DOSE* 17 GM PACKET PO PRN (03:55)
[2025-01-09] MEDS ORDERED: SENNA 8.6 MG TAB PO PRN (03:55)
[2025-01-09] MEDS: VANCOMYCIN HCL 1,000 MG, VIAL MATE ADAPTER 1 EACH in NS 250 ML IV SCH ×2 (05:24→16:56)
[2025-01-09 06:00] VITALS: BP 104/64; TEMP 97.3; O2SAT 95
[2025-01-09 07:15] LABS: PLATELET COUNT, AUTOMATED 245 10^3/uL (150-450)
[2025-01-09 07:44] LABS: CALCIUM LEVEL 9.1 MG/DL (8.5-10.1); CARBON DIOXIDE LEVEL 31.0 MMOL/L (20-31); CHLORIDE LEVEL 106.0 MMOL/L (98-107); CREATININE FOR GFR 0.96 MG/DL (0.55-1.30); ESTIMATED AVERAGE GLUCOSE 111.0 MG/DL (60-110); GLOMERULAR FILTRATION RATE 69.0 (>51); POTASSIUM SERUM 4.3 MMOL/L (3.5-5.1); SODIUM LEVEL 145.0 MMOL/L (136-145)
[2025-01-09] MEDS: ROSUVASTATIN 10 MG TAB PO SCH (08:52)
[2025-01-09] MEDS: ASCORBIC ACID 500 MG TAB PO SCH (08:52)
[2025-01-09] MEDS: OMEPRAZOLE 20MG CAP PO SCH (08:53)
[2025-01-09] MEDS: FERROUS SULFATE 325 MG TAB PO SCH (08:53)
[2025-01-09] MEDS: oxyBUTYnin *XL* 5 MG TAB PO SCH (08:53)
[2025-01-09] MEDS: APIXABAN 5 MG TAB PO SCH (08:53)
[2025-01-09] MEDS: SPIRONOLACTONE 50 MG TAB PO SCH (08:56)
[2025-01-09] MEDS: NYSTATIN CREAM 15 GM TOP SCH (08:57)
[2025-01-09] MEDS: FLUTICASONE PROPIONATE 0.05% NASAL SPRAY 16 GM NARES SCH (09:10)
[2025-01-09 12:00] VITALS: BP 110/56; TEMP 97.7; O2SAT 95
[2025-01-09 16:00] VITALS: BP 112/57; TEMP 97.7; O2SAT 96
[2025-01-09] MEDS ORDERED: VANCOMYCIN HCL 1,000 MG, VIAL MATE ADAPTER 1 EACH in NS 250 ML IV SCH ×2 (17:00)
[2025-01-09 19:26] VITALS: BP 112/58; TEMP 97.2; O2SAT 99
[2025-01-09] MEDS: CALCIUM CARBONATE 500 MG CHEW U/D PO SCH (20:57)
[2025-01-10 06:00] VITALS: BP 108/58; TEMP 97.2; O2SAT 92
[2025-01-10 08:23] LABS: PLATELET COUNT, AUTOMATED 243 10^3/uL (150-450)
[2025-01-10 08:47] LABS: VANCOMYCIN LEVEL TROUGH 15.5 UG/ML (10.0-20.0)
[2025-01-10 08:48] LABS: C REACTIVE PROTEIN QUANTITATIV 2.58 MG/DL (<1.0)
[2025-01-10 08:49] LABS: CALCIUM LEVEL 8.8 MG/DL (8.5-10.1); CARBON DIOXIDE LEVEL 28.0 MMOL/L (20-31); CHLORIDE LEVEL 108.0 MMOL/L (98-107); CREATININE FOR GFR 0.95 MG/DL (0.55-1.30); GLOMERULAR FILTRATION RATE 69.9 (>51); POTASSIUM SERUM 4.7 MMOL/L (3.5-5.1); SODIUM LEVEL 146.0 MMOL/L (136-145)
[2025-01-10] MEDS: VANCOMYCIN HCL 1,000 MG, VIAL MATE ADAPTER 1 EACH in NS 250 ML IV SCH (08:53)
[2025-01-10] MEDS: DOCUSATE SODIUM 100 MG CAPSULE PO SCH (08:53)
[2025-01-10 13:15] VITALS: BP 94/52; TEMP 97.3; O2SAT 96
[2025-01-10 19:37] VITALS: BP 108/62; TEMP 97.7; O2SAT 95
[2025-01-10 20:00] VITALS: BP 108/62; TEMP 97.7; O2SAT 95
[2025-01-10] MEDS: SENNA 8.6 MG TAB PO SCH (21:40)
[2025-01-11 06:00] VITALS: BP 119/61; TEMP 97.2; O2SAT 95
[2025-01-11 06:36] LABS: PLATELET COUNT, AUTOMATED 288 10^3/uL (150-450)
[2025-01-11 08:03] LABS: C REACTIVE PROTEIN QUANTITATIV 1.54 MG/DL (<1.0); CALCIUM LEVEL 8.8 MG/DL (8.5-10.1); CARBON DIOXIDE LEVEL 30.0 MMOL/L (20-31); CHLORIDE LEVEL 107.0 MMOL/L (98-107); CREATININE FOR GFR 1.14 MG/DL (0.55-1.30); GLOMERULAR FILTRATION RATE 56.2 (>51); POTASSIUM SERUM 5.0 MMOL/L (3.5-5.1); SODIUM LEVEL 146.0 MMOL/L (136-145)
[2025-01-11] MEDS: VANCOMYCIN HCL 1,500 MG, VIAL MATE ADAPTER 1 EACH in NS 500 ML IV SCH (09:41)
[2025-01-11] MEDS: cefTAZidime 2 GM in DEXTROSE 5% (D5W) ADV/MINI-BAG 50 ML IV SCH (11:03)
[2025-01-11 12:00] VITALS: BP 110/54; TEMP 97.9; O2SAT 98
[2025-01-11] MEDS: traZODone 25MG PER 1/2 TABLET PO SCH (20:20)
[2025-01-11 20:48] VITALS: BP 109/52; TEMP 97.7; O2SAT 96
[2025-01-12 06:05] VITALS: BP 147/70; TEMP 97.7; O2SAT 99
[2025-01-12 08:15] LABS: PLATELET COUNT, AUTOMATED 274 10^3/uL (150-450)
[2025-01-12 08:35] LABS: CALCIUM LEVEL 9.0 MG/DL (8.5-10.1); CARBON DIOXIDE LEVEL 28.0 MMOL/L (20-31); CHLORIDE LEVEL 106.0 MMOL/L (98-107); CREATININE FOR GFR 1.12 MG/DL (0.55-1.30); GLOMERULAR FILTRATION RATE 57.4 (>51); POTASSIUM SERUM 4.7 MMOL/L (3.5-5.1); SODIUM LEVEL 145.0 MMOL/L (136-145)
[2025-01-12 08:36] LABS: C REACTIVE PROTEIN QUANTITATIV 1.03 MG/DL (<1.0)
[2025-01-12 14:00] VITALS: BP 105/54; TEMP 97.2; O2SAT 97
[2025-01-12 20:00] VITALS: BP 133/76; TEMP 97.9; O2SAT 97
[2025-01-13 06:22] VITALS: BP 118/62; TEMP 97.9
[2025-01-13 07:15] LABS: PLATELET COUNT, AUTOMATED 277 10^3/uL (150-450)
[2025-01-13 07:21] LABS: C REACTIVE PROTEIN QUANTITATIV 0.98 MG/DL (<1.0); CALCIUM LEVEL 9.2 MG/DL (8.5-10.1); CARBON DIOXIDE LEVEL 31.0 MMOL/L (20-31); CHLORIDE LEVEL 103.0 MMOL/L (98-107); CREATININE FOR GFR 1.1 MG/DL (0.55-1.30); GLOMERULAR FILTRATION RATE 58.6 (>51); POTASSIUM SERUM 4.9 MMOL/L (3.5-5.1); SODIUM LEVEL 143.0 MMOL/L (136-145)
[2025-01-13 14:00] VITALS: BP 100/49; TEMP 97.7; O2SAT 95
[2025-01-13 20:12] VITALS: BP 135/65; TEMP 97.5; O2SAT 94
[2025-01-14 06:00] VITALS: BP 103/54; TEMP 97.3; O2SAT 94
[2025-01-14 08:34] VITALS: BP 103/54
[2025-01-14 14:35] VITALS: BP 104/53; TEMP 97.7; O2SAT 96
[2025-01-14 20:58] VITALS: BP 123/61; TEMP 97.7; O2SAT 95
[2025-01-15 06:38] LABS: PLATELET COUNT, AUTOMATED 249 10^3/uL (150-450)
[2025-01-15 06:43] VITALS: BP 107/58; TEMP 97.5; O2SAT 98
[2025-01-15 07:11] LABS: CALCIUM LEVEL 8.8 MG/DL (8.5-10.1); CARBON DIOXIDE LEVEL 31.0 MMOL/L (20-31); CHLORIDE LEVEL 105.0 MMOL/L (98-107); CREATININE FOR GFR 0.96 MG/DL (0.55-1.30); GLOMERULAR FILTRATION RATE 69.0 (>51); POTASSIUM SERUM 4.8 MMOL/L (3.5-5.1); SODIUM LEVEL 144.0 MMOL/L (136-145)
[2025-01-15 12:00] VITALS: BP 108/47; TEMP 97; O2SAT 95
[2025-01-15 21:16] VITALS: BP 120/47; TEMP 97.7; O2SAT 94
[2025-01-16 07:22] VITALS: BP 129/60; TEMP 97.5; O2SAT 96
[2025-01-16 14:00] VITALS: BP 122/58; TEMP 97.3; O2SAT 95
[2025-01-16 20:00] VITALS: BP 131/77; TEMP 97.9; O2SAT 98
[2025-01-16] MEDS: TRIAMCINOLONE ACET 0.1% OINTMENT 80GM TOP SCH (22:29)
[2025-01-17 06:00] VITALS: BP 120/56; TEMP 97.5; O2SAT 96
[2025-01-17] MEDS ORDERED: HYDR50TA70 PO (07:27)
[2025-01-17 14:00] VITALS: BP 115/62; TEMP 97.5; O2SAT 99
[2025-01-17 20:00] VITALS: BP 100/62; TEMP 97.7; O2SAT 92
[2025-01-18 06:00] VITALS: BP 104/61; TEMP 97.7; O2SAT 93
[2025-01-18 08:10] VITALS: BP 104/61
== END 2025-01-18 13:30 | disposition home health service (06) | DRG 300 ==
LOC: M ED 16:41 → EDBD 16:41 → M ED INP 16:42 → M MS5PR 01-09 00:10 → INTOOBSV 01-10 09:52 → OBSVTOIN 01-10 09:52
PROVIDERS: ADMIT Student in an Organized Health Care Education/Training Program; ATTEND Internal Medicine Nephrology
DX: I87.2 Venous insufficiency (chronic) (peripheral) (principal); Z68.42 Body mass index [BMI] 45.0-49.9, adult; L03.115 Cellulitis of right lower limb; L97.918 Non-pressure chronic ulcer of unspecified part of right lower leg with other specified severity; I89.0 Lymphedema, not elsewhere classified; E28.2 Polycystic ovarian syndrome; N18.30 Chronic kidney disease, stage 3 unspecified; M79.3 Panniculitis, unspecified; K21.9 Gastro-esophageal reflux disease without esophagitis; I12.9 Hypertensive chronic kidney disease with stage 1 through stage 4 chronic kidney disease, or unspecified chronic kidney disease; F39 Unspecified mood [affective] disorder; I87.301 Chronic venous hypertension (idiopathic) without complications of right lower extremity; R51.9 Headache, unspecified; E66.01 Morbid (severe) obesity due to excess calories; E55.9 Vitamin D deficiency, unspecified; M51.369 Other intervertebral disc degeneration, lumbar region without mention of lumbar back pain or lower extremity pain; M16.11 Unilateral primary osteoarthritis, right hip; K76.0 Fatty (change of) liver, not elsewhere classified; G47.33 Obstructive sleep apnea (adult) (pediatric); R73.03 Prediabetes; E78.5 Hyperlipidemia, unspecified; D50.9 Iron deficiency anemia, unspecified; M19.012 Primary osteoarthritis, left shoulder; K59.09 Other constipation; G89.4 Chronic pain syndrome; L68.0 Hirsutism; R32 Unspecified urinary incontinence; M62.838 Other muscle spasm; B96.1 Klebsiella pneumoniae [K. pneumoniae] as the cause of diseases classified elsewhere; B37.2 Candidiasis of skin and nail; Z86.711 Personal history of pulmonary embolism; Z86.718 Personal history of other venous thrombosis and embolism; Z79.899 Other long term (current) drug therapy; Z79.01 Long term (current) use of anticoagulants; Z91.048 Other nonmedicinal substance allergy status; Z91.040 Latex allergy status; Z90.49 Acquired absence of other specified parts of digestive tract

== ENCOUNTER 2025-02-01 11:46 | Emergency (ER) | payer MEDICARE, MEDICAID ==
[~2025-02-01] VITALS: Ht 157.5 cm; Wt 145.4 kg
[~2025-02-01 11:46] MED LIST changes: +HYDR50TA70 PO; +NATU400C6 PO; +NSIRR1000 TOP; +OXYB15TA14 PO; +VITA200012 PO
[2025-02-01 11:59] VITALS: TEMP 99.3
[2025-02-01 12:45] LABS: BASO # 0.0 10^3/uL (0.0-0.2); BASO % 0.4 % (0.0-1.0); EOS # 0.2 10^3/uL (0.0-0.5); EOS % 2.4 % (0.0-3.0); LYMPH # 2.2 10^3/uL (1.5-5.0); LYMPH % 27.6 % (24.0-44.0); MONO # 0.7 10^3/uL (0.0-0.8); MONO % 8.7 % (2.0-8.0); NEUTROPHILS # 4.8 10^3/uL (1.5-8.5); NEUTROPHILS % 60.6 % (36.0-66.0); PLATELET COUNT, AUTOMATED 280 10^3/uL (150-450)
[2025-02-01 12:51] LABS: ERYTHROCYTE SEDIMENTATION RATE 66 mm/hr (0-30)
[2025-02-01 13:15] LABS: C REACTIVE PROTEIN QUANTITATIV 0.81 MG/DL (<1.0); CALCIUM LEVEL 9.7 MG/DL (8.5-10.1); CARBON DIOXIDE LEVEL 28.0 MMOL/L (20-31); CHLORIDE LEVEL 105.0 MMOL/L (98-107); CREATININE FOR GFR 1.07 MG/DL (0.55-1.30); GLOMERULAR FILTRATION RATE 60.6 (>51); POTASSIUM SERUM 4.7 MMOL/L (3.5-5.1); SODIUM LEVEL 142.0 MMOL/L (136-145)
[2025-02-01 14:00] VITALS: BP 113/57
[2025-02-01 14:16] VITALS: O2SAT 99
== END 2025-02-01 15:10 | disposition home or self-care (01) ==
LOC: EDBD 11:46 → M ED 11:46
DX: L97.319 Non-pressure chronic ulcer of right ankle with unspecified severity (principal); I10 Essential (primary) hypertension; E78.5 Hyperlipidemia, unspecified; D50.9 Iron deficiency anemia, unspecified; K21.9 Gastro-esophageal reflux disease without esophagitis; E28.2 Polycystic ovarian syndrome; G47.33 Obstructive sleep apnea (adult) (pediatric); E55.9 Vitamin D deficiency, unspecified; K76.0 Fatty (change of) liver, not elsewhere classified; Z86.711 Personal history of pulmonary embolism; Z86.718 Personal history of other venous thrombosis and embolism; Z91.09 Other allergy status, other than to drugs and biological substances; Z88.8 Allergy status to other drugs, medicaments and biological substances; Z91.040 Latex allergy status; Z91.011 Allergy to milk products; Z79.1 Long term (current) use of non-steroidal anti-inflammatories (NSAID); Z79.01 Long term (current) use of anticoagulants; Z79.899 Other long term (current) drug therapy

== ENCOUNTER → 2025-02-18 | Outpatient (CLI) | payer MEDICARE, MEDICAID ==
[2025-02-18 15:54] LABS: BASO # 0.0 10^3/uL (0.0-0.2); BASO % 0.5 % (0.0-1.0); EOS # 0.2 10^3/uL (0.0-0.5); EOS % 3.2 % (0.0-3.0); LYMPH # 1.6 10^3/uL (1.5-5.0); LYMPH % 24.5 % (24.0-44.0); MONO # 0.6 10^3/uL (0.0-0.8); MONO % 9.4 % (2.0-8.0); NEUTROPHILS # 4.1 10^3/uL (1.5-8.5); NEUTROPHILS % 62.1 % (36.0-66.0); PLATELET COUNT, AUTOMATED 330 10^3/uL (150-450)
[2025-02-18 16:28] LABS: FREE T4 1.17 NG/DL (0.89-1.76)
[2025-02-18 16:30] LABS: TOTAL 25(OH) VITAMIN D 77.2 NG/ML (20.0-100.0)
[2025-02-18 17:01] LABS: ESTIMATED AVERAGE GLUCOSE 126.0 MG/DL (60-110)
[2025-02-18 17:16] LABS: ALT/SGPT 16.0 U/L (7.0-40); AST/SGOT 13.0 U/L (<34); CALCIUM LEVEL 9.3 MG/DL (8.5-10.1); CARBON DIOXIDE LEVEL 30.0 MMOL/L (20-31); CHLORIDE LEVEL 101.0 MMOL/L (98-107); CHOLESTEROL LEVEL 118.0 MG/DL (<200); CHOLESTEROL RISK RATIO 2.59 (<5); CREATININE FOR GFR 1.01 MG/DL (0.55-1.30); GLOMERULAR FILTRATION RATE 64.9 (>51); LDL CHOLESTEROL 51.8 MG/DL (<100); NON-HDL-C 72.6 MG/DL; POTASSIUM SERUM 5.1 MMOL/L (3.5-5.1); PTH INTACT 65.1 PG/ML (18.5-88.0); SODIUM LEVEL 139.0 MMOL/L (136-145); TRIGLYCERIDES LEVEL 104.0 MG/DL (<150)
== END ==
LOC: M PLALAB 09:10
PROVIDERS: ATTEND Family Medicine
DX: D50.9 Iron deficiency anemia, unspecified (principal); E55.9 Vitamin D deficiency, unspecified; R73.01 Impaired fasting glucose; I10 Essential (primary) hypertension; E78.5 Hyperlipidemia, unspecified; R06.02 Shortness of breath

== ENCOUNTER → 2025-02-26 | Outpatient (REF) | payer MEDICARE | LOC: M SFHCPLAZ 12:19 | PROVIDERS: ATTEND Family Medicine | DX: Z53.9 Procedure and treatment not carried out, unspecified reason (principal) ==

== ENCOUNTER 2025-04-01 10:26 | Emergency (ER) | payer MEDICARE ==
[~2025-04-01] VITALS: Ht 157.5 cm; Wt 144.1 kg
[~2025-04-01 10:26] MED LIST changes: -ROSU10TA61 PO; +ROSU10TA90 PO
[2025-04-01] MEDS ORDERED: AMOX875T2 (10:40)
[2025-04-01] MEDS ORDERED: DOXY100C3 (10:40)
[2025-04-01 12:22] LABS: BASO # 0.0 10^3/uL (0.0-0.2); BASO % 0.5 % (0.0-1.0); EOS # 0.3 10^3/uL (0.0-0.5); EOS % 5.1 % (0.0-3.0); LYMPH # 1.6 10^3/uL (1.5-5.0); LYMPH % 26.0 % (24.0-44.0); MONO # 0.6 10^3/uL (0.0-0.8); MONO % 9.6 % (2.0-8.0); NEUTROPHILS # 3.7 10^3/uL (1.5-8.5); NEUTROPHILS % 58.3 % (36.0-66.0); PLATELET COUNT, AUTOMATED 275 10^3/uL (150-450)
[2025-04-01 12:48] LABS: C REACTIVE PROTEIN QUANTITATIV 1.57 MG/DL (<1.0); CALCIUM LEVEL 9.3 MG/DL (8.5-10.1); CARBON DIOXIDE LEVEL 29.0 MMOL/L (20-31); CHLORIDE LEVEL 103.0 MMOL/L (98-107); CREATININE FOR GFR 1.0 MG/DL (0.55-1.30); GLOMERULAR FILTRATION RATE 65.7 (>51); POTASSIUM SERUM 4.6 MMOL/L (3.5-5.1); SODIUM LEVEL 141.0 MMOL/L (136-145)
[2025-04-01 15:01] VITALS: TEMP 97.1
[2025-04-01 17:20] VITALS: BP 129/60; O2SAT 97
[2025-04-01] MEDS: DALBAVANCIN 1,500 MG in D5W 250 ML IV ONE (17:33)
== END 2025-04-01 18:15 | disposition home or self-care (01) ==
LOC: M ED 10:26
DX: L03.115 Cellulitis of right lower limb (principal); S81.801A Unspecified open wound, right lower leg, initial encounter; N18.30 Chronic kidney disease, stage 3 unspecified; Z91.0110 Allergy to milk products, unspecified; Z91.040 Latex allergy status; Z88.8 Allergy status to other drugs, medicaments and biological substances; Z91.048 Other nonmedicinal substance allergy status; Z79.1 Long term (current) use of non-steroidal anti-inflammatories (NSAID); Z79.2 Long term (current) use of antibiotics; Z79.899 Other long term (current) drug therapy; Z70.1 Counseling related to patient's sexual behavior and orientation; Y93.89 Activity, other specified; Y99.9 Unspecified external cause status
CPT/HCPCS: 36415; 73590; 80048; 83605; 85025; 85652; 86140; 87040; 96365; 99284; J0875